=== PATIENT | male | born 1955 | race Caucasian/White ===

== ENCOUNTER 2020-12-11 09:33 | Inpatient (IN) | payer MEDICARE, SELFPAY ==
[2020-12-11] VITALS (16 sets, daily range): BP systolic 128–152; BP diastolic 61–80; PULSE 77–101; RESP 8–25; TEMP 36.4–37.4; O2SAT 94–100; BMI 17.3
--- NOTE | ~2020-12-11 | XR_ITS ---
EXAMINATION: XR CHEST CLINICAL INFORMATION: Shortness of breath. COMPARISON: None TECHNIQUE: Frontal view of the chest was obtained. FINDINGS: The lungs are hyperinflated but clear of acute process. Heart size and pulmonary vascularity is normal. No gross bony abnormality seen. XR/XR chest 1V IMPRESSION: Hyperinflated lungs without acute process.
--- NOTE | ~2020-12-11 | CT_ITS ---
EXAMINATION: CT ANGIOGRAPHY LEGS WITH RUNOFF CLINICAL INFORMATION: Cold left leg COMPARISON: None TECHNIQUE: Axial images through the lower abdomen and pelvis and bilateral lower extremities following IV contrast. Sagittal and coronal reconstructions on the technologist workstation were performed. This CT examination was performed using dose optimization techniques as appropriate, variously including the following: *Automated exposure control *Adjustment of mA and/or kV according to patient size (this includes techniques or standardized protocols for targeted exams where dose is matched to indication/reason for exam; i.e. extremities or head) *Use of iterative reconstruction technique DLP: 323 mGy-cm FINDINGS: Vascular: The abdominal aorta is normal in caliber. There is significant thrombus seen in the abdominal aorta, predominantly on the left side. Is uncertain whether this could related to thrombosed old occluded dissection flap. There is stenosis at the origin of the renal arteries bilaterally. There is a stenosis at the origin of the SMA. There is a patent WILLIAM. Left leg: The left common iliac artery is occluded. The left internal iliac artery is occluded. The left external iliac artery is occluded. There is reconstitution of the left common femoral artery via collaterals. The left profunda is patent. The left proximal and mid SFA is occluded. There is reconstitution of the distal left hepatic vein via collaterals. The left popliteal artery is a patent. There are segmental popliteal artery stenoses. Evaluation of the lower leg is significantly limited due to low flow. Trifurcation vessels appear patent in the proximal lower leg. The anterior tibial artery appears patent crossing the ankle joint is patent dorsalis pedis artery in the left foot. Right: The right common femoral artery is patent. There is a severe stenosis of the origin of the right internal iliac artery. The right external iliac artery is occluded. There is reconstitution of the right femoral bifurcation/distal common femoral artery via collaterals. The right profunda is patent. The right SFA is patent. There are severe segmental stenoses/near occlusion of the mid and distal right SFA. The right popliteal artery is patent. Evaluation of the lower leg vessels is limited due to a little flow. The trifurcation vessels appear patent the proximal lower leg. The posterior tibial artery. Patent throughout the course crossing the ankle joint is a posterior plantar artery in the right foot. Nonvascular: The visualized liver spleen pancreas and adrenal glands and kidneys are unremarkable. The bladder is normal. There are calcifications in the prostate gland. Visualized bowel is unremarkable. No ascites or adenopathy is seen. No hernia is seen. There are degenerative changes of the spine. CT/CT angio abd aorta runoff IMPRESSION: Significant intraluminal thrombus in the abdominal aorta. This is located on the left side and appearance is questionable a thrombosed old dissection. Occluded left common internal and external iliac artery. Reconstituted left common femoral artery via collaterals. Patent profunda. Occluded left proximal and mid SFA. Reconstituted distal SFA via collaterals. Patent popliteal artery with significant segmental stenoses. Evaluation of lower leg vessels is limited due to little flow. Patent trifurcation vessels proximally. Patent anterior tibial artery crossing the ankle joint is patent dorsalis pedis artery in the left foot. Patent right common femoral artery. Severe stenosis of the origin of the right internal iliac artery. Occluded right external iliac artery. Reconstituted distal femoral bifurcation. Patent profunda. Patent SFA with severe stenosis of the mid and distal SFA/near occlusion. The popliteal artery with significant stenosis. Limited evaluation of the lower leg vessels due to little flow. Patent trifurcation vessels proximally. Patent posterior tibial artery crosses the ankle joint is patent plantar artery in the right foot
--- NOTE | 2020-12-11 10:49 | ED_ITS ---
HPI - General Adult General Chief complaint: Dyspnea Stated complaint: Weakness Time Seen by Provider: 12/11/20 10:49 Source: patient Mode of arrival: EMS Limitations: no limitations History of Present Illness HPI narrative: patient complaining of leg swelling for weeks. Now with increasing pain to left leg. He states that both legs are draining Onset (ago): week(s) Location: lower extremity Severity: severe Quality: burning Pain Consistency: constant Related Data Allergies Allergy/AdvReac Type Severity Reaction Status Date / Time No Known Allergies Allergy Verified 12/11/20 10:57 Review of Systems Constitutional: Constitutional: Reports no additional constitutional complaints Eyes: Eyes: Reports no additional eye complaints ENT: Denies dizziness Cardiovascular: Cardiovascular: Reports no additional cardiovascular complaints Respiratory: Respiratory: Reports as per HPI Gastrointestinal: Gastrointestinal: Reports no additional gastrointestinal complaints Musculoskeletal: Musculoskeletal: Reports no additional musculoskeletal complaints Integumentary/Breasts: Skin/Breast: Denies rash Neurologic: Reports system reviewed and no additional complaints, except as documented, Denies dizziness and Denies Sensory deficit (Neuro) Psychiatric: Psychiatric: Denies anxiety [facility] Social History Social History Patient Tobacco Use Status: Current everyday Tobacco user Smoked in Last 30 Days: Yes Use of substances other than those prescribed or required for medical reasons: No Advance Directives: No Advance Directives Information Provided: No Physical Exam Vital Signs: Vital Signs: Last Vital Signs Temp 98.9 F 12/11/20 16:14 Pulse 96 12/11/20 16:14 Resp 16 12/11/20 16:14 BP 131/71 12/11/20 16:14 Pulse Ox 99 12/11/20 15:10 Body Mass Index 17.3 Const: Other: emaciated unkept male Orientation/consciousness: oriented to person and patient oriented x3 Limitations: no limitations HENMT: Head: Yes normal to inspection Ears: external ears normal General nose exam: Normal external nose present Mouth: Normal oral and palatal mucosa present and oropharynx normal Throat: Yes posterior oropharynx normal Eyes: General: appearance normal, both eyes and all related structures Neck: Other: supple Neck: Yes normal visual inspection Chest: Chest palpation & inspection: normal inspection of the chest Resp: Other: diffuse wheezing and cough Cardio: Jugular venous distension: no JVD Rate: regular rate Rhythm: regular rhythm Heart sounds: S1 normal heart sound present and S2 normal heart sound present GI: Inspection: Yes normal to inspection Palpation (GI): Soft to palpation, nontender and No hepatosplenomegaly present Auscultation: normal bowel sounds : General: Yes no CVA tenderness Back/Spine/Pelvis: Back: no CVA tenderness Skin: General skin exam: no rashes or lesions noted Neuro: General: oriented to person and patient oriented x3 Cranial nerves: Yes CN's II-XII intact bilaterally Motor exam (neuro): 5/5 motor strength present throughout Sensory Exam: No Sensory deficit (Neuro) Extrem: Other: severe edema to lower extremities able to doppler a pulse to ri ght leg which is warm, the left leg is cold with patches of cyanosis and no doppler to DP or PT. Both feet look like trench foot Psych: Appearance: grossly normal Course Reevaluation(s) Reevaluation #1: discussed with Dr. Barnett, will not take to the unit at this time. Rectal black stool strong heme positive Time: 12:34 Reevaluation #2: Dr. Pollock at bedside will obtain CTA with run off Time: 13:03 Reevaluation #3: patient with clotted leg, GI bleed anemia, admitting Time: 16:28 Medical Decision Making Lab Data Result diagrams: 12/11/20 11:23 12/11/20 11:23 Labs: Lab Results 12/11/20 12/11/20 12/11/20 Range/Units 11:23 11:23 11:23 WBC 15.1 H (4.8-10.8) X10*3/uL RBC 2.87 L (4.60-5.80) X10*6/uL Hgb 6.0 L* (14.0-18.0) g/dl Hct 21.9 L (42-52) % MCV 76.3 L (80-98) fL MCH 20.9 L (27.0-33.0) pg MCHC 27.4 L (31.0-36.0) g/dl RDW 25.1 H (11.0-16.0) % Plt Count 397 (160-400) X10*3/uL MPV 9.6 (9.4-12.4) fL Immature Gran % (Auto) 0.8 H (0.0-0.4) % Neut % (Auto) 89.1 H (45-73) % Lymph % (Auto) 5.2 L (20-40) % Mccracken % (Auto) 4.8 (2-11) % Eos % (Auto) 0.0 (0-4) % Baso % (Auto) 0.1 (0-2) % Lymph # (Auto) 0.8 L (1.2-4.9) X10*3/uL Mccracken # (Auto) 0.7 (0.1-1.2) X10*3/uL Eos # (Auto) 0.0 (0.0-0.4) X10*3/uL Baso # (Auto) 0.0 (0.0-0.2) X10*3/uL Abs Immat Gran (auto) 0.12 H (0.00-0.03) X10*3/uL Absolute Neuts (auto) 13.4 H (2.0-8.3) X10*3/uL Absolute Nucleated RBC 0.350 H (0.0-0.012) X10*3/uL Nucleated RBC % (auto) 2.3 H (0.0-0.2) /100WBC PT (10.8-13.0) SEC INR (0.9-1.1) APTT (24.1-38.0) SEC Sodium (135-145) mmol/L Potassium (3.3-5.1) mmol/L Chloride (96-108) mmol/L Carbon Dioxide (22-29) mmol/L Anion Gap (12-20) BUN (9-16) mg/dL Creatinine (0.5-1.4) mg/dL Estim Creat Clear Calc Estimated GFR Random Glucose (60-115) mg/dL Calcium (8.4-10.2) mg/dL Total Bilirubin (0.0-1.0) mg/dL Direct Bilirubin (0.0-0.5) mg/dL AST (5-37) U/L ALT (0-40) U/L Alkaline Phosphatase (39-117) U/L Troponin I High Sens 94.1 H* (<3.5-35.0) ng/L Total Protein (6.5-8.0) g/dL Albumin (3.5-5.0) g/dL Coronavirus (PCR) NEGATIVE (Negative) Influenza Type A (PCR) NEGATIVE (Negative) Influenza Type B (PCR) NEGATIVE (Negative) RSV RNA Qual (PCR) NEGATIVE (Negative) Blood Type Antibody Screen Crossmatch 12/11/20 12/11/20 12/11/20 Range/Units 11:23 11:24 12:20 WBC (4.8-10.8) X10*3/uL RBC (4.60-5.80) X10*6/uL Hgb (14.0-18.0) g/dl Hct (42-52) % MCV (80-98) fL MCH (27.0-33.0) pg MCHC (31.0-36.0) g/dl RDW (11.0-16.0) % Plt Count (160-400) X10*3/uL MPV (9.4-12.4) fL Immature Gran % (Auto) (0.0-0.4) % Neut % (Auto) (45-73) % Lymph % (Auto) (20-40) % Mccracken % (Auto) (2-11) % Eos % (Auto) (0-4) % Baso % (Auto) (0-2) % Lymph # (Auto) (1.2-4.9) X10*3/uL Mccracken # (Auto) (0.1-1.2) X10*3/uL Eos # (Auto) (0.0-0.4) X10*3/uL Baso # (Auto) (0.0-0.2) X10*3/uL Abs Immat Gran (auto) (0.00-0.03) X10*3/uL Absolute Neuts (auto) (2.0-8.3) X10*3/uL Absolute Nucleated RBC (0.0-0.012) X10*3/uL Nucleated RBC % (auto) (0.0-0.2) /100WBC PT 25.4 H (10.8-13.0) SEC INR 2.1 H (0.9-1.1) APTT 34.7 (24.1-38.0) SEC Sodium 138 (135-145) mmol/L Potassium 4.4 (3.3-5.1) mmol/L Chloride 100 (96-108) mmol/L Carbon Dioxide 27 (22-29) mmol/L Anion Gap 15 (12-20) BUN 14 (9-16) mg/dL Creatinine 0.82 (0.5-1.4) mg/dL Estim Creat Clear Calc 69.4 Estimated GFR > 60 Random Glucose 100 (60-115) mg/dL Calcium 8.1 L (8.4-10.2) mg/dL Total Bilirubin 0.2 (0.0-1.0) mg/dL Direct Bilirubin < 0.2 (0.0-0.5) mg/dL AST 23 (5-37) U/L ALT 11 (0-40) U/L Alkaline Phosphatase 94 (39-117) U/L Troponin I High Sens (<3.5-35.0) ng/L Total Protein 6.1 L (6.5-8.0) g/dL Albumin 3.2 L (3.5-5.0) g/dL Coronavirus (PCR) (Negative) Influenza Type A (PCR) (Negative) Influenza Type B (PCR) (Negative) RSV RNA Qual (PCR) (Negative) Blood Type O Positive Antibody Screen NEGATIVE Crossmatch See Detail 12/11/20 Range/Units 13:27 WBC (4.8-10.8) X10*3/uL RBC (4.60-5.80) X10*6/uL Hgb (14.0-18.0) g/dl Hct (42-52) % MCV (80-98) fL MCH (27.0-33.0) pg MCHC (31.0-36.0) g/dl RDW (11.0-16.0) % Plt Count (160-400) X10*3/uL MPV (9.4-12.4) fL Immature Gran % (Auto) (0.0-0.4) % Neut % (Auto) (45-73) % Lymph % (Auto) (20-40) % Mccracken % (Auto) (2-11) % Eos % (Auto) (0-4) % Baso % (Auto) (0-2) % Lymph # (Auto) (1.2-4.9) X10*3/uL Mccracken # (Auto) (0.1-1.2) X10*3/uL Eos # (Auto) (0.0-0.4) X10*3/uL Baso # (Auto) (0.0-0.2) X10*3/uL Abs Immat Gran (auto) (0.00-0.03) X10*3/uL Absolute Neuts (auto) (2.0-8.3) X10*3/uL Absolute Nucleated RBC (0.0-0.012) X10*3/uL Nucleated RBC % (auto) (0.0-0.2) /100WBC PT (10.8-13.0) SEC INR (0.9-1.1) APTT (24.1-38.0) SEC Sodium (135-145) mmol/L Potassium (3.3-5.1) mmol/L Chloride (96-108) mmol/L Carbon Dioxide (22-29) mmol/L Anion Gap (12-20) BUN (9-16) mg/dL Creatinine (0.5-1.4) mg/dL Estim Creat Clear Calc Estimated GFR Random Glucose (60-115) mg/dL Calcium (8.4-10.2) mg/dL Total Bilirubin (0.0-1.0) mg/dL Direct Bilirubin (0.0-0.5) mg/dL AST (5-37) U/L ALT (0-40) U/L Alkaline Phosphatase (39-117) U/L Troponin I High Sens 79.0 H* (<3.5-35.0) ng/L Total Protein (6.5-8.0) g/dL Albumin (3.5-5.0) g/dL Coronavirus (PCR) (Negative) Influenza Type A (PCR) (Negative) Influenza Type B (PCR) (Negative) RSV RNA Qual (PCR) (Negative) Blood Type Antibody Screen Crossmatch Imaging Data Chest x-ray: Radiologist's impression: IMPRESSION: Hyperinflated lungs without acute process. aortagram with run off: Radiologist's impression: IMPRESSION: Significant intraluminal thrombus in the abdominal aorta. This is located on the left side and appearance is questionable a thrombosed old dissection. Occluded left common internal and external iliac artery. Reconstituted left common femoral artery via collaterals. Patent profunda. Occluded left proximal and mid SFA. Reconstituted distal SFA via collaterals. Patent popliteal artery with significant segmental stenoses. Evaluation of lower leg vessels is limited due to little flow. Patent trifurcation vessels proximally. Patent anterior tibial artery crossing the ankle joint is patent dorsalis pedis artery in the left foot. Patent right common femoral artery. Severe stenosis of the origin of the right internal iliac artery. Occluded right external iliac artery. Reconstituted distal femoral bifurcation. Patent profunda. Patent SFA with severe stenosis of the mid and distal SFA/near occlusion. The popliteal artery with significant stenosis. Limited evaluation of the lower leg vessels due to little flow. Patent trifurcation vessels proximally. Patent posterior tibial artery crosses the ankle joint is patent plantar artery in the right f Critical Care Time Critical Care Time Attestation: I spent 40 minutes of critical care, with interventions, assessments, speaking to patient, consultants, and family. Discharge Plan Discharge Clinical Impression: Ischemic leg Gastrointestinal hemorrhage Qualifiers: GI bleed type/associated pathology: unspecified gastrointestinal hemorrhage type Qualified Code(s): K92.2 - Gastrointestinal hemorrhage, unspecified Patient Disposition: Admitted As Inpatient
--- NOTE | 2020-12-11 11:02 | ECG_ITS ---
Test Reason : SHORTNESS OF BREATH Blood Pressure : / mmHG Vent. Rate : 101 BPM Atrial Rate : 101 BPM P-R Int : 130 ms QRS Dur : 118 ms QT Int : 352 ms P-R-T Axes : 086 -53 065 degrees QTc Int : 456 ms Sinus tachycardia Right atrial enlargement Right axis deviation Pulmonary disease pattern Right bundle branch block Abnormal ECG No previous ECGs available Referred By: James Romero Electronically Signed By:Arjun Dickinson
[2020-12-11] MEDS: Albuterol Sulfate 90 MCG 8 GM INHALER 4 PUFF INHALE (11:24)
[2020-12-11 11:34] LABS: MANUAL DIFF FLAG NO
[2020-12-11 11:36] LABS: Basophils Percent Auto 0.1 % (0-2); Hematocrit 21.9 % (42-52); Imm Gran Abs Auto 0.12 X10*3/uL (0.00-0.03); Imm Gran Pct Auto 0.8 % (0.0-0.4); Lymphocytes Absolute Auto 0.8 X10*3/uL (1.2-4.9); Lymphocytes Percent Auto 5.2 % (20-40); Mean Corpuscular HGB Conc 27.4 g/dl (31.0-36.0); Mean Corpuscular Hemoglobin 20.9 pg (27.0-33.0); Mean Corpuscular Volume 76.3 fL (80-98); Mean Platelet Volume 9.6 fL (9.4-12.4); Monocytes Absolute Auto 0.7 X10*3/uL (0.1-1.2); Monocytes Percent Auto 4.8 % (2-11); Neutrophils Absolute Auto 13.4 X10*3/uL (2.0-8.3); Neutrophils Percent Auto 89.1 % (45-73); Platelet Count 397 X10*3/uL (160-400); Red Blood Count 2.87 X10*6/uL (4.60-5.80); Red Cell Distribution Width 25.1 % (11.0-16.0); White Blood Count 15.1 X10*3/uL (4.8-10.8)
[2020-12-11 11:45] LABS: NRBC Pct Auto 2.3 /100WBC (0.0-0.2)
[2020-12-11 11:48] LABS: INTERNATIONAL NORM RATIO 2.1 (0.9-1.1); Prothrombin Time 25.4 SEC (10.8-13.0)
[2020-12-11 11:51] LABS: Partial Thromboplastin Time 34.7 SEC (24.1-38.0)
[2020-12-11 12:04] LABS: Troponin-I High Sensitivity 94.1 ng/L (<3.5-35.0)
[2020-12-11 12:14] LABS: Alanine Aminotransferase 11 U/L (0-40); Albumin Level 3.2 g/dL (3.5-5.0); Alkaline Phosphatase 94 U/L (39-117); Anion Gap 15 (12-20); Aspartate Amino Transferase 23 U/L (5-37); Bilirubin Direct < 0.2 mg/dL (0.0-0.5); Bilirubin Total 0.2 mg/dL (0.0-1.0); Blood Urea Nitrogen 14 mg/dL (9-16); Calcium 8.1 mg/dL (8.4-10.2); Carbon Dioxide 27 mmol/L (22-29); Chloride 100 mmol/L (96-108); Creatinine Clr Calc Pharmacy 69.4; Estimated Glomerular Filt Rate > 60; Glucose Random 100 mg/dL (60-115); Potassium 4.4 mmol/L (3.3-5.1); Sodium 138 mmol/L (135-145); Total Protein 6.1 g/dL (6.5-8.0)
[2020-12-11] MEDS: Pantoprazole Sodium 40 MG/10 ML VIAL IVPUSH (12:34)
[2020-12-11 12:38] LABS: Influenza A PCR NEGATIVE (Negative); Influenza B PCR NEGATIVE (Negative); Resp Syncy Virus RNA Qual PCR NEGATIVE (Negative); SARS COV2 PCR INHOUSE NEGATIVE (Negative)
[2020-12-11] MEDS: iohexoL 350 MG/ML 100 ML INFUS..BTL IV (14:00)
--- NOTE | 2020-12-11 14:04 | PC.NURSE ---
PT TOLERATING BLOOD TRANSFUSION WELL. REPORTS IMPROVEMENT WITH WORK OF BREATHING, WHEEZING RESOLVES, LS DIMINISHED THROUGHOUT. SPO2 DOWN TO 88% ON RA, PLACED ON 1L O2. PT MILDLY OBTUNDED, ROUSES EASILY TO VERBAL STIMULI, ORIENTED X 3. SPEAKING IN CLEAR FULL SENTENCES.
--- NOTE | 2020-12-11 16:34 | PM.EVENT ---
Event Note Date of Service: 12/11/20 Event Note: Patient seen and examined independently and was present during gusman portion of E/M service. Agree with midlevel's history, physical, assessment, and plan. 65M presented with LLE pain and swelling found to have anemia, black stools acute limb ischemia follow up vascular acute blood loss anemia/gi bleed, likely upper ppi, tranfuse, monitor, gi
[2020-12-11 17:27] LABS: Estimated Average Glucose 85 mg/dL; Hemoglobin A1c % 4.6 %
--- NOTE | 2020-12-11 18:01 | PC.NURSE ---
CALLED UP FOR REPORT, AWAITING CALL BACK
[2020-12-11 18:09] LABS: VBG Base Excess 1.2 mmol/L; VBG HCO3 25 mmol/L (22-26); VBG pCO2 36 mmHg; VBG pH 7.44 (7.32-7.43); VBG pO2 63 mmHg
[2020-12-11 18:09] LABS: Venous Blood Gas Refer to POC result
--- NOTE | 2020-12-11 19:33 | P.CONGS_ITS ---
History of Present Illness Consult details Consult date: 12/11/20 Reason for consult: ischemic leg Narrative: Complex 65-year-old gentleman was as this seeing consultation by the emergency room for any ski make left lower extremity. It was difficult to ascertain a true history as the patient was quite confusing. He reports that his legs have progressively gotten swollen over the last year to but he has had difficulty with his legs for about 7 years or so. Over the past 3-4 days his left leg has progressively gotten worse and he is unable to tolerate the pain. He states that he has not been walking for about 2-3 days. According to the mother it has been about 2-3 weeks. Of note social history is significant for smoking at the current time half pack per day but I believe at 1 point he was as high as 2 packs per day in addition to a significant alcohol history. He now presents to us for vascular evaluation. Of note I was called to evaluate this patient at 11:15. I was in the midst of a procedure and had seen the patient by noon. At that time the left lower extremity already had a mottled appearance to it and the patient reported that this is been the appearance for nearly 2-3 days. Review of Systems Constitutional: Constitutional: Reports as per HPI ENT: Reports system reviewed and no additional complaints, except as documented Cardiovascular: Cardiovascular: Denies chest pain, Denies chest pain at rest and Denies chest pain with activity Respiratory: Respiratory: Denies chest congestion and Denies cough Gastrointestinal: Gastrointestinal: Reports no additional gastrointestinal complaints Musculoskeletal: Musculoskeletal: Reports abnormal gait, Reports muscle cramps, Reports muscle weakness and Reports numbness Integumentary/Breasts: Skin/Breast: Reports pruritus and Denies wounds Neurologic: Reports system reviewed and no additional complaints, except as documented, Reports abnormal gait and Reports numbness Psychiatric: Psychiatric: Denies no additional psychiatric complaints PMFSH Social History Social History Patient Tobacco Use Status: Current everyday Tobacco user Smoked in Last 30 Days: Yes Use of substances other than those prescribed or required for medical reasons: No Advance Directives: No Advance Directives Information Provided: No Meds Allergies Allergy/AdvReac Type Severity Reaction Status Date / Time No Known Allergies Allergy Verified 12/11/20 10:57 Active Medications: Current Medications Generic Name Dose Route Start Last Admin Trade Name Katherine PRN Reason Stop Dose Admin Acetaminophen 650 mg 12/11/20 16:46 Acetaminophen 325 Mg Tablet PO Q6H PRN Pain, Mild (Pain Scale 1-3) Albuterol Sulfate 2.5 mg 12/11/20 20:00 Albuterol Sulfate (0.083%) 2.5 Mg/3 Ml Vial.Neb INHALE RQ4H WHILE AWAKE [facility] Ondansetron HCl 4 mg 12/11/20 16:46 Ondansetron Hcl 4 Mg/2 Ml Vial IVPUSH Q8H PRN Nausea and Vomiting Oxycodone HCl 5 mg 12/11/20 16:51 Oxycodone Hcl Immed Release 5 Mg Tablet PO Q6H PRN Pain, Mild (Pain Scale 1-3) Pantoprazole Sodium 40 mg 12/12/20 06:30 Pantoprazole Sodium 40 Mg/10 Ml Vial IVPUSH BID@0630,1630 [facility] Sodium Chloride 3 ml 12/12/20 00:00 0.9 % Sodium Chloride Flush 3 Ml Syringe IVFLUSH QSHIFT [facility] Home Medications Medication Instructions Recorded Confirmed Last Taken Type No Known Home Meds 12/11/20 12/11/20 Unknown History Physical Exam Vital Signs: Vital Signs: Last Vital Signs Temp 99.3 F 12/11/20 18:01 Pulse 85 12/11/20 18:01 Resp 16 12/11/20 18:01 BP 152/74 H 12/11/20 18:01 Pulse Ox 99 12/11/20 18:00 Body Mass Index 17.3 Const: General: cooperative, healthy appearing and comfortable Orientation/consciousness: oriented to person, oriented to place and oriented to time Neck: Carotids: no bruits Chest: Chest palpation & inspection: normal inspection of the chest and normal palpation of entire chest wall Resp: Effort & Inspection: normal respiratory effort and able to speak in complete sentences Cardio: Rate: regular rate Heart sounds: S1 normal heart sound present and S2 normal heart sound present Peripheral pulses: dorsalis pedis present bilat eral dopplerable GI: Inspection: Yes normal to inspection Skin: Other: +2 edema, Right greater than left. Left lower extremity appears to have a cool mottled appearance to it. There is diminshed motor and sensation on that left lower extremity. General skin exam: dry skin Neuro: General: oriented to person, oriented to place and oriented to time Extrem: Right lower extremity: full ROM, normal capillary refill and edema Left lower extremity: full ROM, normal capillary refill and edema Psych: Mental Status: mental status grossly normal Results Labs Result diagrams: 12/11/20 11:23 12/11/20 11:23 Labs: Abnormal lab results 12/11/20 12/11/20 12/11/20 Range/Units 11:23 11:23 11:23 WBC 15.1 H (4.8-10.8) X10*3/uL RBC 2.87 L (4.60-5.80) X10*6/uL Hgb 6.0 L* (14.0-18.0) g/dl Hct 21.9 L (42-52) % MCV 76.3 L (80-98) fL MCH 20.9 L (27.0-33.0) pg MCHC 27.4 L (31.0-36.0) g/dl RDW 25.1 H (11.0-16.0) % Immature Gran % (Auto) 0.8 H (0.0-0.4) % Neut % (Auto) 89.1 H (45-73) % Lymph % (Auto) 5.2 L (20-40) % Lymph # (Auto) 0.8 L (1.2-4.9) X10*3/uL Abs Immat Gran (auto) 0.12 H (0.00-0.03) X10*3/uL Absolute Neuts (auto) 13.4 H (2.0-8.3) X10*3/uL Absolute Nucleated RBC 0.350 H (0.0-0.012) X10*3/uL Nucleated RBC % (auto) 2.3 H (0.0-0.2) /100WBC PT (10.8-13.0) SEC INR (0.9-1.1) VBG pH (7.32-7.43) Calcium 8.1 L (8.4-10.2) mg/dL Troponin I High Sens 94.1 H* (<3.5-35.0) ng/L Total Protein 6.1 L (6.5-8.0) g/dL Albumin 3.2 L (3.5-5.0) g/dL Crossmatch 12/11/20 12/11/20 12/11/20 Range/Units 11:24 12:20 13:27 WBC (4.8-10.8) X10*3/uL RBC (4.60-5.80) X10*6/uL Hgb (14.0-18.0) g/dl Hct (42-52) % MCV (80-98) fL MCH (27.0-33.0) pg MCHC (31.0-36.0) g/dl RDW (11.0-16.0) % Immature Gran % (Auto) (0.0-0.4) % Neut % (Auto) (45-73) % Lymph % (Auto) (20-40) % Lymph # (Auto) (1.2-4.9) X10*3/uL Abs Immat Gran (auto) (0.00-0.03) X10*3/uL Absolute Neuts (auto) (2.0-8.3) X10*3/uL Absolute Nucleated RBC (0.0-0.012) X10*3/uL Nucleated RBC % (auto) (0.0-0.2) /100WBC PT 25.4 H (10.8-13.0) SEC INR 2.1 H (0.9-1.1) VBG pH (7.32-7.43) Calcium (8.4-10.2) mg/dL Troponin I High Sens 79.0 H* (<3.5-35.0) ng/L Total Protein (6.5-8.0) g/dL Albumin (3.5-5.0) g/dL Crossmatch See Detail 12/11/20 Range/Units 18:02 WBC (4.8-10.8) X10*3/uL RBC (4.60-5.80) X10*6/uL Hgb (14.0-18.0) g/dl Hct (42-52) % MCV (80-98) fL MCH (27.0-33.0) pg MCHC (31.0-36.0) g/dl RDW (11.0-16.0) % Immature Gran % (Auto) (0.0-0.4) % Neut % (Auto) (45-73) % Lymph % (Auto) (20-40) % Lymph # (Auto) (1.2-4.9) X10*3/uL Abs Immat Gran (auto) (0.00-0.03) X10*3/uL Absolute Neuts (auto) (2.0-8.3) X10*3/uL Absolute Nucleated RBC (0.0-0.012) X10*3/uL Nucleated RBC % (auto) (0.0-0.2) /100WBC PT (10.8-13.0) SEC INR (0.9-1.1) VBG pH 7.44 H (7.32-7.43) Calcium (8.4-10.2) mg/dL Troponin I High Sens (<3.5-35.0) ng/L Total Protein (6.5-8.0) g/dL Albumin (3.5-5.0) g/dL Crossmatch Short CBC 12/11/20 Range/Units 11:23 WBC 15.1 H (4.8-10.8) X10*3/uL Hgb 6.0 L* (14.0-18.0) g/dl Hct 21.9 L (42-52) % Plt Count 397 (160-400) X10*3/uL BMP 12/11/20 11:23 Sodium 138 Potassium 4.4 Chloride 100 Carbon Dioxide 27 BUN 14 Creatinine 0.82 Calcium 8.1 L Liver Function 12/11/20 Range/Units 11:23 Total Bilirubin 0.2 (0.0-1.0) mg/dL Direct Bilirubin < 0.2 (0.0-0.5) mg/dL AST 23 (5-37) U/L ALT 11 (0-40) U/L Alkaline Phosphatase 94 (39-117) U/L Albumin 3.2 L (3.5-5.0) g/dL All other labs normal. Imaging Additional studies: Significant intraluminal thrombus in the abdominal aorta. This is located on the left side and appearance is questionable a thrombosed old dissection. Occluded left common internal and external iliac artery. Reconstituted left common femoral artery via collaterals. Patent profunda. Occluded left proximal and mid SFA. Reconstituted distal SFA via collaterals. Patent popliteal artery with significant segmental stenoses. Evaluation of lower leg vessels is limited due to little flow. Patent trifurcation vessels proximally. Patent anterior tibial artery crossing the ankle joint is patent dorsalis pedis artery in the left foot. Patent right common femoral artery. Severe stenosis of the origin of the right internal iliac artery. Occluded right external iliac artery. Reconstituted distal femoral bifurcation. Patent profunda. Patent SFA with severe stenosis of the mid and distal SFA/near occlusion. The popliteal artery with significant stenosis. Limited evaluation of the lower leg vessels due to little flow. Patent trifurcation vessels proximally. Patent posterior tibial artery crosses the ankle joint is patent plantar artery in the right foot Assessment and Plan (1) PVD (peripheral vascular disease): Status: Acute In short patient has an ischemic left lower extremity it appears that this is an acute upon chronic event. Of bigger concern is his low hemoglobin. This will need to be worked up and stabilized prior to any intervention as he will require large amounts of heparin for any vascular procedure. Would like him stabilized 1st from an anemia standpoint. Subsequent to that we can de termine the best plan of action. There is a very high probability that there will be limb loss of the left lower extremity. Would recommend GI evaluation in addition to cardiology evaluation for high troponins and evaluation of his overall cardiac status. He might be better served with an ICU admission. Will monitor his status closely with you. Thank you for allowing us to assist in his care. Please note a total of 70 minutes was required for direct [id number] evaluation of the patient, review of imaging report and direct visualization of images. In addition discussion with the emergency room team. Procedures Date of Service Date of Service: 12/11/20
--- NOTE | 2020-12-11 20:02 | HP_ITS ---
DATE OF SERVICE: 12/11/2020 PRIMARY CARE PROVIDER: None. CHIEF COMPLAINT: Left leg pain. HISTORY OF PRESENT ILLNESS: 65-year-old man with no significant medical history, presenting to the ER with bilateral leg swelling and pain mostly to his left leg. The patient lives with his elderly mother and apparently last year when he contracted the COVID around August, he seemed to develop a depression and had not been wanting to leave the house and has been housebound most of the year except for occasional outings with his mother to [place] to get cigarettes. He reports that he has not seen a doctor in more than 5 years and does not take any medication at home. He does smoke a half a pack to a pack of cigarettes a day. He denies any alcohol use. He denies any assistive devices for ambulation. He had noticed increased swelling to both legs, more to the right and the left leg had increased pain and discoloration, both feet felt very cold. He also reported black stools over the last several days with no nausea or vomiting. In the ER, he had a CT angio of the abdomen/aorta, which showed multiple areas of occlusion and stenosis to the left lower extremity. He was also noted to be anemic with hemoglobin of 6.0, hematocrit of 21.9, normal platelet count, INR 2.1. He also had an elevated troponin initially of 94.1, however, he denied any chest pain, and there was no acute ST-wave abnormalities on EKG. His vital signs were stable, although one point, he was mildly tachycardic at 101. He did receive IV Protonix and albuterol while in the ER. He will be admitted for further management and treatment of ischemic limb. PAST MEDICAL HISTORY: Reports none. PAST SURGICAL HISTORY: Reports none. SOCIAL HISTORY: Smokes a half a pack to a pack of cigarettes a day. Lives with his mother. Denies any alcohol or illicit drug use. FAMILY HISTORY: Denies any cardiac disease. ALLERGIES: NO KNOWN ALLERGIES. MEDICATIONS: None. LABORATORY DATA: WBC 15.1, hemoglobin 6.0, hematocrit 21.9, platelets 397. Sodium is 138, potassium is 4.4, chloride is 100, bicarb is 27, BUN is 14, creatinine is 0.82. AST is 23, ALT is 11. Troponin 94.1, 79.0. INR 2.1. Coronavirus negative. Chest x-ray negative for consolidation or effusion. REVIEW OF SYSTEMS: CONSTITUTIONAL: Denies any recent fever, chills, or decrease in appetite. RESPIRATORY: Denies any shortness of breath, cough, or sputum production. CARDIOVASCULAR: Denies any chest pain, orthopnea, PND. Reports edema to both legs. ABDOMEN: Positive bowel sounds. Soft, nontender. No hepatomegaly or splenomegaly noted. NEURO: The patient is alert and oriented x3. Cranial nerves II through XII are grossly intact without focal deficits. PHYSICAL EXAMINATION: CONSTITUTIONAL: The patient is resting in bed, appearing in no acute distress. VITAL SIGNS: 98.5, 88, 20, 147/78, 99% on 2 L. SKIN: Intact with some redness and bluish discoloration to his left lower extremity. Some skin tearing as well. Right lower extremity with +2 to 3 pedal edema. He also has multiple areas of scabbing to his back and shoulders. ABDOMEN: Positive bowel sounds. Soft, nontender. No hepatomegaly or splenomegaly noted. NEURO: The patient is alert and oriented x3. Cranial nerves II through XII are grossly intact without focal deficits. ASSESSMENT AND PLAN: 65-year-old man, who is being admitted with what appears to be ischemic left limb with multiple areas of occlusion and stenosis to the left lower extremity. 1. Ischemic limb. History of cigarette smoking. Denies alcohol abuse. Has not seen a primary care doctor in over 5 years. Appears to have some degree of depression. We will consult Vascular Surgery. We will likely need amputation to left lower extremity. Pain medication as needed. No pedal pulse to left lower extremity. Decent pulse to right lower extremity. N.p.o. after midnight. 2. Anemia. Likely GI bleed with black stools. Denies any history of heavy alcohol abuse, GI consultation, receiving 2 units of packed red blood cells in the ER. We will recheck H and H at 9 p.m., IV Protonix. 3. Supratherapeutic INR. No history of liver disease. We will avoid correction as the patient has severe occlusion to his left lower extremity. Recheck PT/INR in the morning. Monitor for any signs of overt bleeding. 4. Leukocytosis. No infection noted, likely reactive to ischemia. Follow closely. 5. Elevated troponin. No complaints of chest pain, no acute abnormalities to EKG. We will trend and monitor on telemetry. 6. Elevated blood pressure reading. The patient states no history of hypertension, however, he does have a history of smoking, so likely chronic, monitor. 7. Deep vein thrombosis prophylaxis with right lower extremity mechanical compression boot due to anemia. 8. Attending: Dr. Braden. 9. Full code. ASAEL Mcgrath MD JR/KAYODE / [id number]
[2020-12-11] MEDS: 0.9 % Sodium Chloride Flush 3 ML SYRINGE IVFLUSH (20:06)
[2020-12-11] MEDS: Albuterol Sulfate (0.083%) 2.5 MG/3 ML VIAL.NEB INHALE (20:11)
[2020-12-11 20:59] LABS: Hematocrit 30.3 % (42-52); Hemoglobin 9.3 g/dl (14.0-18.0)
[2020-12-11 21:44] LABS: Troponin-I High Sensitivity 98.9 ng/L (<3.5-35.0)
[2020-12-12] VITALS (20 sets, daily range): BP systolic 101–135; BP diastolic 46–74; PULSE 68–89; RESP 16–20; TEMP 36.6–37.7; O2SAT 93–100; BMI 17.3
--- NOTE | 2020-12-12 | ECG_ITS ---
Test Reason : [facility] Blood Pressure : / mmHG Vent. Rate : 089 BPM Atrial Rate : 089 BPM P-R Int : 144 ms QRS Dur : 122 ms QT Int : 374 ms P-R-T Axes : 000 -28 145 degrees QTc Int : 455 ms Normal sinus rhythm Right bundle branch block T wave abnormality, consider lateral ischemia Abnormal ECG When compared with ECG of 11-DEC-2020 12:30, T wave inversion now evident in Lateral leads Referred By: Kaleb Herring Electronically Signed By:Arjun Dickinson
--- NOTE | 2020-12-12 04:41 | P.CNGI_ITS ---
History of Present Illness Data of Consult Service Date: 12/12/20 Requesting physician: Toshia Cruz Primary Care Provider: None Physician HPI Reason for consult: melena, anemia 65-year-old man with smoking history who I am asked to see for assessment for melena and anemia. He initially presented with increased b/l leg swelling, especially right leg with pain and coldness and discoloration. He also c/o passing black tar like stools for few days prior to admission. He denies abdominal pain, no nausea, vomiting, no chest pain, but did feel tired and SOB. Labs:hemoglobin: 6.0, hematocrit:21.9, normal platelet count, INR 2.1. elevated troponin: 94.1 Imaging: multiple areas of occlusion and stenosis to the left lower extremity, intraluminal thrombus in the abdominal aorta. Occluded left common internal and external iliac artery. Review of Systems Constitutional: Constitutional: Reports as per HPI and Reports no additional constitutional complaints Eyes: Eyes: Reports no additional eye complaints ENT: Reports system reviewed and no additional complaints, except as documented and Denies dizziness Cardiovascular: Cardiovascular: Reports no additional cardiovascular complaints, Denies chest pain, Denies chest pain at rest and Denies chest pain with activity Respiratory: Respiratory: Reports as per HPI, Denies chest congestion and Denies cough Gastrointestinal: Gastrointestinal: Reports no additional gastrointestinal complaints Musculoskeletal: Musculoskeletal: Reports no additional musculoskeletal complaints, Reports abnormal gait, Reports muscle cramps, Reports muscle weakness and Reports numbness Integumentary/Breasts: Skin/Breast: Reports pruritus, Denies rash and Denies wounds Neurologic: Reports system reviewed and no additional complaints, except as documented, Reports abnormal gait, Denies dizziness, Reports numbness and Denies Sensory deficit (Neuro) Psychiatric: Psychiatric: Denies no additional psychiatric complaints and Denies anxiety [facility] Social History Social History Household Members: Family Household Members Other:: Mom and dad Housing: House Patient Tobacco Use Status: Current everyday Tobacco user Smoked in Last 30 Days: Yes Use of substances other than those prescribed or required for medical reasons: No Currently Displaying Signs/Symptoms of Drug Intoxication Withdrawal: No Have you been hit, kicked, punched, or otherwise hurt by someone within the past year? If so, by whom?: No Do you feel safe in your current relationship?: No Current Relationship Is there a partner from a previous relationship who is making you feel unsafe now?: No Are you made to feel afraid or neglected: No Are you DNR?: No Advance Directives: No Advance Directives Information Provided: No Advance Directives on File: No Do you have thoughts of harming others: None Do you have a plan to hurt others: No Plan Recently lost weight without trying: No Nutrition Risks: No Nutritional Risk service: No Meds Allergies Allergy/AdvReac Type Severity Reaction Status Date / Time No Known Allergies Allergy Verified 12/11/20 10:57 Active Medications: Current Medications Generic Name Dose Route Start Last Admin Trade Name Freq PRN Reason Stop Dose Admin Acetaminophen 650 mg 12/11/20 16:46 Acetaminophen 325 Mg Tablet PO Q6H PRN Pain, Mild (Pain Scale 1-3) Albuterol Sulfate 2.5 mg 12/11/20 20:00 12/11/20 20:11 Albuterol Sulfate (0.083%) 2.5 Mg/3 Ml Vial.Neb INHALE 2.5 mg RQ4H WHILE AWAKE GERTRUDIS Administration Ondansetron HCl 4 mg 12/11/20 16:46 Ondansetron Hcl 4 Mg/2 Ml Vial IVPUSH Q8H PRN Nausea and Vomiting Oxycodone HCl 5 mg 12/11/20 16:51 Oxycodone Hcl Immed Release 5 Mg Tablet PO Q6H PRN Pain, Mild (Pain Scale 1-3) Pantoprazole Sodium 40 mg 12/12/20 06:30 Pantoprazole Sodium 40 Mg/10 Ml Vial IVPUSH BID@0630,1630 GERTRUDIS Sodium Chloride 3 ml 12/12/20 00:00 12/11/20 20:06 0.9 % Sodium Chloride Flush 3 Ml Syringe IVFLUSH 3 ml QSHIFT GERTRUDIS Administration Home Medications Medication Instructions Recorded Confirmed Last Taken Type No Known Home Meds 12/11/20 12/11/20 Unknown History Physical Exam Vital Signs: Vital Signs: Last Vital Signs Temp 98.4 F 12/12/20 04:00 Pulse 81 12/12/20 04:00 Resp 16 12/12/20 04:00 BP 132/68 12/12/20 04:00 Pulse Ox 99 12/12/20 04:00 Body Mass Index 17.3 Const: Other: emaciated unkept male General: cooperative, healthy appearing and comfortable Orientation/consciousness: oriented to person, oriented to place, oriented to time and patient oriented x3 Limitations: no limitations HENMT: Head: Yes normal to inspection Ears: external ears normal General nose exam: Normal external nose present Mouth: Normal oral and palatal mucosa present and oropharynx normal Throat: Yes posterior oropharynx normal Eyes: General: appearance normal, both eyes and all related structures Neck: Other: supple Neck: Yes normal visual inspection Carotids: no bruits Chest: Chest palpation & inspection: normal inspection of the chest and normal palpation of entire chest wall Resp: Other: harsh breath sounds Effort & Inspection: normal respiratory effort and able to speak in complete sentences Cardio: Jugular venous distension: no JVD Rate: regular rate Rhythm: regular rhythm Heart sounds: S1 normal heart sound present and S2 normal heart sound present Peripheral pulses: dorsalis pedis present bilateral dopplerable GI: Inspection: Yes normal to inspection Palpation (GI): Soft to palpation, nontender and No hepatosplenomegaly present Auscultation: normal bowel sounds : General: Yes no CVA tenderness Back/Spine/Pelvis: Back: no CVA tenderness Skin: Other: +2 edema, Right greater than left. Left lower extremity appears to have a cool mottled appearance to it. General skin exam: no rashes or lesions noted and dry skin Neuro: General: oriented to person, oriented to place, oriented to time and patient oriented x3 Cranial nerves: Yes CN's II-XII intact bilaterally Motor exam (neuro): 5/5 motor strength present throughout Sensory Exam: No Sensory deficit (Neuro) Extrem: Other: edema to lower extremities, the left leg is cold with patches of cyanosis Right lower extremity: full ROM, normal capillary refill and edema Left lower extremity: full ROM, normal capillary refill and edema Psych: Appearance: grossly normal Mental Status: mental status grossly normal Results Labs CBC & Chem 7: 12/12/20 05:30 12/12/20 05:30 Labs: Short CBC 12/11/20 12/11/20 Range/Units 11:23 20:52 WBC 15.1 H (4.8-10.8) X10*3/uL Hgb 6.0 L* 9.3 L D (14.0-18.0) g/dl Hct 21.9 L 30.3 L D (42-52) % Plt Count 397 (160-400) X10*3/uL BMP 12/11/20 11:23 Sodium 138 Potassium 4.4 Chloride 100 Carbon Dioxide 27 BUN 14 Creatinine 0.82 Calcium 8.1 L Liver Function 12/11/20 Range/Units 11:23 Total Bilirubin 0.2 (0.0-1.0) mg/dL Direct Bilirubin < 0.2 (0.0-0.5) mg/dL AST 23 (5-37) U/L ALT 11 (0-40) U/L Alkaline Phosphatase 94 (39-117) U/L Albumin 3.2 L (3.5-5.0) g/dL ECG: P Pulmonale, RBBB, right axis deviation. Diminished QRS complexes Assessment and Plan (1) Gastrointestinal hemorrhage: Qualifiers: GI bleed type/associated pathology: unspecified gastrointestinal hemorrhage type Qualified Code(s): K92.2 - Gastrointestinal hemorrhage, unspecified Status: Acute 1/ Anemia with evidence of overt bleeding, may have PUD, also has ischemic limb, did have covid earlier this year which is prothrombotic state and not been that active, as well as smoking history. He needs EGD for assessment prior to surgery and anti coagulation. He has no signs of cirrhosis. PLAN: 1/ EGD 2/ COnt with PPI 3/ fluid and PRBC resus for HGB goal 9 g/dl. Procedures Date of Service Date of Service: 12/12/20
[2020-12-12 05:56] LABS: MANUAL DIFF FLAG NO
[2020-12-12 06:00] LABS: Basophils Percent Auto 0.1 % (0-2); Hematocrit 30.3 % (42-52); Hemoglobin 8.9 g/dl (14.0-18.0); Imm Gran Abs Auto 0.24 X10*3/uL (0.00-0.03); Imm Gran Pct Auto 1.2 % (0.0-0.4); Lymphocytes Absolute Auto 0.8 X10*3/uL (1.2-4.9); Lymphocytes Percent Auto 4.1 % (20-40); Mean Corpuscular HGB Conc 29.4 g/dl (31.0-36.0); Mean Corpuscular Hemoglobin 24.2 pg (27.0-33.0); Mean Corpuscular Volume 82.3 fL (80-98); Mean Platelet Volume 10.4 fL (9.4-12.4); Monocytes Absolute Auto 1.2 X10*3/uL (0.1-1.2); Monocytes Percent Auto 5.6 % (2-11); Neutrophils Absolute Auto 18.4 X10*3/uL (2.0-8.3); Platelet Count 302 X10*3/uL (160-400); Red Blood Count 3.68 X10*6/uL (4.60-5.80); Red Cell Distribution Width 22.5 % (11.0-16.0); White Blood Count 20.7 X10*3/uL (4.8-10.8)
[2020-12-12 06:09] LABS: INTERNATIONAL NORM RATIO 2.2 (0.9-1.1)
[2020-12-12] MEDS: Pantoprazole Sodium 40 MG/10 ML VIAL IVPUSH (06:23)
[2020-12-12 06:37] LABS: Anion Gap 16 (12-20); Blood Urea Nitrogen 11 mg/dL (9-16); Calcium 7.7 mg/dL (8.4-10.2); Carbon Dioxide 25 mmol/L (22-29); Chloride 102 mmol/L (96-108); Creatinine Clr Calc Pharmacy 76.9; Estimated Glomerular Filt Rate > 60; Glucose Random 71 mg/dL (60-115); Potassium 3.9 mmol/L (3.3-5.1); Sodium 139 mmol/L (135-145)
[2020-12-12 06:40] LABS: Iron 21 mcg/dL (45-160); NRBC Pct Auto 1.9 /100WBC (0.0-0.2); Percent Iron Saturation 11 % (15-50); Total Iron Binding Capacity 196 mcg/dL (228-428); Unsaturated Iron Binding 175 ug/dL
[2020-12-12] MEDS: Albuterol Sulfate (0.083%) 2.5 MG/3 ML VIAL.NEB INHALE ×3 (07:29→20:29)
[2020-12-12] MEDS: 0.9 % Sodium Chloride Flush 3 ML SYRINGE IVFLUSH ×2 (08:16→23:27)
--- NOTE | 2020-12-12 09:52 | MHC.CM.PN ---
met with pt who currently has a sitter pt reports that he had no servceis prior to admisison and that he lives with his parents,his dc plan is uncertain at this time ?amputation when he is stable.cm will continue to follow for disposition planning
--- NOTE | 2020-12-12 10:55 | PM.CNCAR ---
History of Present Illness History of Present Illness Date of Service: 12/12/20 Requesting physician: Venancio Giraldo Chief complaint: Leg Pain Narrative: 65-year-old with h/o tobacco abuse presenting with leg pain. He has ischemic left leg and multilevel stenosis including aortic thrombus on CT. He unfortunately also has been experiencing melena and was anemic on admission. He is denying chest pain. He has [place] but has been limited due to legs. He was smoking 5 cig/day recently. We have been asked about perioperative risk cardiovascular risk assessment. He is not physically active due to ongoing PVD issues. CT aorta with leg run off reviewed. ECG reviewed. [facility] Social History Social History Household Members: Family Household Members Other:: Mom and dad Housing: House Patient Tobacco Use Status: Current everyday Tobacco user Smoked in Last 30 Days: Yes Use of substances other than those prescribed or required for medical reasons: No Currently Displaying Signs/Symptoms of Drug Intoxication Withdrawal: No Have you been hit, kicked, punched, or otherwise hurt by someone within the past year? If so, by whom?: No Do you feel safe in your current relationship?: No Current Relationship Is there a partner from a previous relationship who is making you feel unsafe now?: No Are you made to feel afraid or neglected: No Advance Directives: No Advance Directives Information Provided: No Do you have thoughts of harming others: None Do you have a plan to hurt others: No Plan Recently lost weight without trying: No Nutrition Risks: No Nutritional Risk service: No Meds Allergies Allergy/AdvReac Type Severity Reaction Status Date / Time No Known Allergies Allergy Verified 12/11/20 10:57 Active Medications: Current Medications Generic Name Dose Route Start Last Admin Trade Name Freq PRN Reason Stop Dose Admin Acetaminophen 650 mg 12/11/20 16:46 Acetaminophen 325 Mg Tablet PO Q6H PRN Pain, Mild (Pain Scale 1-3) Albuterol Sulfate 2.5 mg 12/11/20 20:00 12/12/20 07:29 Albuterol Sulfate (0.083%) 2.5 Mg/3 Ml Vial.Neb INHALE 2.5 mg RQ4H WHILE AWAKE GERTRUDIS Administration Nicotine 21 mg 12/12/20 09:00 12/12/20 09:36 Nicotine 21 Mg Patch.Td24 TRANSDERMA Not Given DAILY GERTRUDIS Ondansetron HCl 4 mg 12/11/20 16:46 Ondansetron Hcl 4 Mg/2 Ml Vial IVPUSH Q8H PRN Nausea and Vomiting Oxycodone HCl 5 mg 12/11/20 16:51 Oxycodone Hcl Immed Release 5 Mg Tablet PO Q6H PRN Pain, Mild (Pain Scale 1-3) Pantoprazole Sodium 40 mg 12/12/20 06:30 12/12/20 06:23 Pantoprazole Sodium 40 Mg/10 Ml Vial IVPUSH 40 mg BID@0630,1630 GERTRUDIS Administration Sodium Chloride 3 ml 12/12/20 00:00 12/12/20 08:16 0.9 % Sodium Chloride Flush 3 Ml Syringe IVFLUSH 3 ml QSHIFT GERTRUDIS Administration Home Medications Medication Instructions Recorded Confirmed Last Taken Type No Known Home Meds 12/11/20 12/11/20 Unknown History Physical Exam Vital Signs: Vital Signs: Last Vital Signs Temp 99.7 F 12/12/20 07:17 Pulse 88 12/12/20 07:31 Resp 16 12/12/20 07:17 BP 112/60 12/12/20 07:17 Pulse Ox 98 12/12/20 07:17 Body Mass Index 17.3 GENERAL APPEARANCE: in no acute distress. NECK: no jugular venous distention. SKIN: Open ulcer left lower extremity HEART: no murmurs, regular rate and rhythm. LUNGS: clear to auscultation bilaterally. ABDOMEN: soft, nontender. EXTREMITIES: no edema. Left lower extremity is cold below the knee with skin ulceration. NEUROLOGIC: No gross deficits, AAO X 3 Results Labs and Meds Result diagrams: 12/12/20 05:30 12/12/20 05:30 Lab results: Laboratory Results - last 24 hr 12/11/20 12/11/20 12/11/20 11:23 11:23 11:23 WBC 15.1 H RBC 2.87 L Hgb 6.0 L* Hct 21.9 L MCV 76.3 L MCH 20.9 L MCHC 27.4 L RDW 25.1 H Plt Count 397 MPV 9.6 Immature Gran % (Auto) 0.8 H Neut % (Auto) 89.1 H Lymph % (Auto) 5.[address] [place] % (Auto) 4.8 Eos % (Auto) 0.0 Baso % (Auto) 0.1 Lymph # (Auto) 0.[address] [place] # (Auto) 0.7 Eos # (Auto) 0.0 Baso # (Auto) 0.0 Abs Immat Gran (auto) 0.12 H Absolute Neuts (auto) 13.4 H Absolute Nucleated RBC 0.350 H Nucleated RBC % (auto) 2.3 H Smear Path Review PT INR APTT VBG pH VBG pCO2 VBG pO2 VBG HCO3 VBG O2 Saturation VBG Base Excess Sodium Potassium Chloride Carbon Dioxide Anion Gap BUN Creatinine Estim Creat Clear Calc Estimated GFR Random Glucose Estimat Average Glucose Hemoglobin A1c % Calcium Iron TIBC % Saturation Unsat Iron Binding Total Bilirubin Direct Bilirubin AST ALT Alkaline Phosphatase Troponin I High Sens 94.1 H* Total Protein Albumin TSH Coronavirus (PCR) NEGATIVE Influenza Type A (PCR) NEGATIVE Influenza Type B (PCR) NEGATIVE RSV RNA Qual (PCR) NEGATIVE Blood Type Antibody Screen Crossmatch 12/11/20 12/11/20 12/11/20 11:23 11:23 11:24 WBC RBC Hgb Hct MCV MCH MCHC RDW Plt Count MPV Immature Gran % (Auto) Neut % (Auto) Lymph % (Auto) [place] % (Auto) Eos % (Auto) Baso % (Auto) Lymph # (Auto) [place] # (Auto) Eos # (Auto) Baso # (Auto) Abs Immat Gran (auto) Absolute Neuts (auto) Absolute Nucleated RBC Nucleated RBC % (auto) Smear Path Review PT 25.4 H INR 2.1 H APTT 34.7 VBG pH VBG pCO2 VBG pO2 VBG HCO3 VBG O2 Saturation VBG Base Excess Sodium 138 Potassium 4.4 Chloride 100 Carbon Dioxide 27 Anion Gap 15 BUN 14 Creatinine 0.82 Estim Creat Clear Calc 69.4 Estimated GFR > 60 Random Glucose 100 Estimat Average Glucose 85 Hemoglobin A1c % 4.6 Calcium 8.1 L Iron TIBC % Saturation Unsat Iron Binding Total Bilirubin 0.2 Direct Bilirubin < 0.2 AST 23 ALT 11 Alkaline Phosphatase 94 Troponin I High Sens Total Protein 6.1 L Albumin 3.2 L TSH 0.80 Coronavirus (PCR) Influenza Type A (PCR) Influenza Type B (PCR) RSV RNA Qual (PCR) Blood Type Antibody Screen Crossmatch 12/11/20 12/11/20 12/11/20 12:20 13:27 18:02 WBC RBC Hgb Hct MCV MCH MCHC RDW Plt Count MPV Immature Gran % (Auto) Neut % (Auto) Lymph % (Auto) [place] % (Auto) Eos % (Auto) Baso % (Auto) Lymph # (Auto) [place] # (Auto) Eos # (Auto) Baso # (Auto) Abs Immat Gran (auto) Absolute Neuts (auto) Absolute Nucleated RBC Nucleated RBC % (auto) Smear Path Review PT INR APTT VBG pH 7.44 H VBG pCO2 36 VBG pO2 63 VBG HCO3 25 VBG O2 Saturation 88.0 VBG Base Excess 1.2 Sodium Potassium Chloride Carbon Dioxide Anion Gap BUN Creatinine Estim Creat Clear Calc Estimated GFR Random Glucose Estimat Average Glucose Hemoglobin A1c % Calcium Iron TIBC % Saturation Unsat Iron Binding Total Bilirubin Direct Bilirubin AST ALT Alkaline Phosphatase Troponin I High Sens 79.0 H* Total Protein Albumin TSH Coronavirus (PCR) Influenza Type A (PCR) Influenza Type B (PCR) RSV RNA Qual (PCR) Blood Type O Positive Antibody Screen NEGATIVE Crossmatch See Detail 12/11/20 12/11/20 12/12/20 20:52 20:52 05:30 WBC RBC Hgb 9.3 L D Hct 30.3 L D MCV MCH MCHC RDW Plt Count MPV Immature Gran % (Auto) Neut % (Auto) Lymph % (Auto) [place] % (Auto) Eos % (Auto) Baso % (Auto) Lymph # (Auto) [place] # (Auto) Eos # (Auto) Baso # (Auto) Abs Immat Gran (auto) Absolute Neuts (auto) Absolute Nucleated RBC Nucleated RBC % (auto) Smear Path Review PT INR APTT VBG pH VBG pCO2 VBG pO2 VBG HCO3 VBG O2 Saturation VBG Base Excess Sodium Potassium Chloride Carbon Dioxide Anion Gap BUN Creatinine Estim Creat Clear Calc Estimated GFR Random Glucose Estimat Average Glucose Hemoglobin A1c % Calcium Iron 21 L TIBC 196 L % Saturation 11 L Unsat Iron Binding 175 Total Bilirubin Direct Bilirubin AST ALT Alkaline Phosphatase Troponin I High Sens 98.9 H* Total Protein Albumin TSH Coronavirus (PCR) Influenza Type A (PCR) Influenza Type B (PCR) RSV RNA Qual (PCR) Blood Type Antibody Screen Crossmatch 12/12/20 12/12/20 12/12/20 05:30 05:30 05:30 WBC 20.7 H RBC 3.68 L D Hgb 8.9 L Hct 30.3 L MCV 82.3 D MCH 24.2 L MCHC 29.4 L RDW 22.5 H Plt Count 302 MPV 10.4 Immature Gran % (Auto) 1.2 H Neut % (Auto) 89.0 H Lymph % (Auto) 4.[address] [place] % (Auto) 5.6 Eos % (Auto) 0.0 Baso % (Auto) 0.1 Lymph # (Auto) 0.[address] [place] # (Auto) 1.2 Eos # (Auto) 0.0 Baso # (Auto) 0.0 Abs Immat Gran (auto) 0.24 H Absolute Neuts (auto) 18.4 H Absolute Nucleated RBC 0.400 H Nucleated RBC % (auto) 1.9 H Smear Path Review SEE NOTE PT 26.0 H INR 2.2 H APTT VBG pH VBG pCO2 VBG pO2 VBG HCO3 VBG O2 Saturation VBG Base Excess Sodium 139 Potassium 3.9 Chloride 102 Carbon Dioxide 25 Anion Gap 16 BUN 11 Creatinine 0.74 Estim Creat Clear Calc 76.9 Estimated GFR > 60 Random Glucose 71 Estimat Average Glucose Hemoglobin A1c % Calcium 7.7 L Iron TIBC % Saturation Unsat Iron Binding Total Bilirubin Direct Bilirubin AST ALT Alkaline Phosphatase Troponin I High Sens Total Protein Albumin TSH Coronavirus (PCR) Influenza Type A (PCR) Influenza Type B (PCR) RSV RNA Qual (PCR) Blood Type Antibody Screen Crossmatch Imaging Radiologist's impression: Impressions Chest X-Ray 12/11/20 11:02 IMPRESSION: Hyperinflated lungs without acute process. Aorta w/Runoff CTA 12/11/20 12:22 IMPRESSION: Significant intraluminal thrombus in the abdominal aorta. This is located on the left side and appearance is questionable a thrombosed old dissection. Occluded left common internal and external iliac artery. Reconstituted left common femoral artery via collaterals. Patent profunda. Occluded left proximal and mid SFA. Reconstituted distal SFA via collaterals. Patent popliteal artery with significant segmental stenoses. Evaluation of lower leg vessels is limited due to little flow. Patent trifurcation vessels proximally. Patent anterior tibial artery crossing the ankle joint is patent dorsalis pedis artery in the left foot. Patent right common femoral artery. Severe stenosis of the origin of the right internal iliac artery. Occluded right external iliac artery. Reconstituted distal femoral bifurcation. Patent profunda. Patent SFA with severe stenosis of the mid and distal SFA/near occlusion. The popliteal artery with significant stenosis. Limited evaluation of the lower leg vessels due to little flow. Patent trifurcation vessels proximally. Patent posterior tibial artery crosses the ankle joint is patent plantar artery in the right foot Assessment and Plan (1) PVD (peripheral vascular disease): Status: Acute (2) Ischemic leg: Status: Acute (3) Gastrointestinal hemorrhage: Qualifiers: GI bleed type/associated pathology: unspecified gastrointestinal hemorrhage type Qualified Code(s): K92.2 - Gastrointestinal hemorrhage, unspecified Status: Acute (4) Preoperative cardiovascular examination: Status: Acute 65-year-old with tobacco abuse presenting with GI bleed and ischemic left leg. Leg is cold and he has open wounds. He will likely need amputation. He is not physically active and right now he needs surgery as gangrene/infection will be life threatening. I do not think there is any choice and risk stratification will not effect management changes in his case. Based on his overall profile he is high risk for any procedures but he requires endoscopy to understand his bleeding source and if any intervention can be done for that and he requires surgery for his lower extremity because gangrene and infection can be life-threatening. Will check echo to assess LVEF but this should not delay his peocedures. Transfuse and monitor H & H. We will follow along with you. Thank you for allowing me to participate in the care of your patient. Please feel free to contact me if you have any questions. Procedures Date of Service Date of Service: 12/12/20
--- NOTE | 2020-12-12 12:33 | MHC.CLN ---
PT IS SEVERELY MALNOURISHED PT IS MODERATELY DEPLETED SUBCUTANEOUS FAT AND MUSCLE MASS WITH BMI 17 WITH +3 EDEMA PT HAS NOT SEEN A DOCTOR IN OVER 5 YEARS, SMOKER AND HOMEBOUND X 1YEAR WITH REPORTED DEPRESSION DIET RX: NPO WHEN DIET TO ADVANCE RECOMMEND ADDING ENSURE BID TO INCREASE KCALS SUPPLEMENT TO PROVIDE 700KCALS, 40G PROTEIN MONITOR PO INTAKE AND WEIGHT CLOSELY
--- NOTE | 2020-12-12 13:17 | MHC.SHP ---
Pre-Procedural Eval Section A Date of Service: 12/12/20 The patient is an INPATIENT: Yes The History & Physical has been completed within 30 days and I have reviewed it.: Yes Section B Chief Complaint: Leg Pain Allergies: Allergies Allergy/AdvReac Type Severity Reaction Status Date / Time No Known Allergies Allergy Verified 12/11/20 10:57 Plan Diagnosis/Plan: Unchanged I have reviewed the history and physical and performed a pertinent physical examination on my patient. No changes have occurred unless specified.
--- NOTE | 2020-12-12 14:07 | P.CONAN_ITS ---
HPI - Anesthesia Eval Consult details Narrative: 65 year old male for EGD ?GIB PMFSH Active Problems Active Problems: All Active Problems (Updated 12/12/20 @ 10:59 by Arjun Dickinson MD) Preoperative cardiovascular examination (Acute) PVD (peripheral vascular disease) (Acute) Ischemic leg (Acute) Gastrointestinal hemorrhage (Acute) Past Medical History Medical History (Updated 12/12/20 @ 14:21 by Fannie Castano) Anemia Coagulopathy COVID-19 Depression Dyspnea Leukocytosis Smoker Weakness Family History Family history of problems with anesthesia: No Surgical History History of Problems with Anesthesia: No Social History Social History Household Members: Family Household Members Other:: Mom and dad Housing: House Patient Tobacco Use Status: Current everyday Tobacco user Smoked in Last 30 Days: Yes Use of substances other than those prescribed or required for medical reasons: No Currently Displaying Signs/Symptoms of Drug Intoxication Withdrawal: No Have you been hit, kicked, punched, or otherwise hurt by someone within the past year? If so, by whom?: No Do you feel safe in your current relationship?: No Current Relationship Is there a partner from a previous relationship who is making you feel unsafe now?: No Are you made to feel afraid or neglected: No Are you DNR?: No Advance Directives: No Advance Directives Information Provided: No Advance Directives on File: No Do you have thoughts of harming others: None Do you have a plan to hurt others: No Plan Recently lost weight without trying: No Nutrition Risks: No Nutritional Risk service: No Meds Allergies Allergy/AdvReac Type Severity Reaction Status Date / Time No Known Allergies Allergy Verified 12/11/20 10:57 Active Medications: Current Medications Generic Name Dose Route Start Last Admin Trade Name Freq PRN Reason Stop Dose Admin Acetaminophen 650 mg 12/11/20 16:46 Acetaminophen 325 Mg Tablet PO Q6H PRN Pain, Mild (Pain Scale 1-3) Albuterol Sulfate 2.5 mg 12/11/20 20:00 12/12/20 11:10 Albuterol Sulfate (0.083%) 2.5 Mg/3 Ml Vial.Neb INHALE 2.5 mg RQ4H WHILE AWAKE GERTRUDIS Administration Lactated Ringer's 1,000 mls @ 100 mls/hr 12/12/20 14:00 Lr IVCONT .Q10H [facility] Nicotine 21 mg 12/12/20 09:00 12/12/20 09:36 Nicotine 21 Mg Patch.Td24 TRANSDERMA Not Given DAILY GERTRUDIS Ondansetron HCl 4 mg 12/11/20 16:46 Ondansetron Hcl 4 Mg/2 Ml Vial IVPUSH Q8H PRN Nausea and Vomiting Ondansetron HCl 4 mg 12/12/20 14:04 Ondansetron Hcl 4 Mg/2 Ml Vial IVPUSH ONCE PRN Nausea and Vomiting Oxycodone HCl 5 mg 12/11/20 16:51 Oxycodone Hcl Immed Release 5 Mg Tablet PO Q6H PRN Pain, Mild (Pain Scale 1-3) Pantoprazole Sodium 40 mg 12/12/20 06:30 12/12/20 06:23 Pantoprazole Sodium 40 Mg/10 Ml Vial IVPUSH 40 mg BID@0630,1630 GERTRUDIS Administration Sodium Chloride 3 ml 12/12/20 00:00 12/12/20 08:16 0.9 % Sodium Chloride Flush 3 Ml Syringe IVFLUSH 3 ml QSHIFT GERTRUDIS Administration Home Medications Medication Instructions Recorded Confirmed Last Taken Type No Known Home Meds 12/11/20 12/11/20 Unknown History Exam Exam Date and Time: December 12, 2020 1407 Height,Weight and Vital Signs: Height 5 ft 10 in Weight 54.683 kg Last Vital Signs Temp 98.4 F 12/12/20 13:05 Pulse 70 12/12/20 13:05 Resp 20 12/12/20 13:05 BP 109/51 L 12/12/20 13:05 Pulse Ox 100 12/12/20 13:05 Pertinent Lab Results Pertinent Lab Results: Laboratory Tests 12/11/20 12/11/20 12/11/20 11:23 11:23 11:23 WBC 15.1 H RBC 2.87 L Hgb 6.0 L* Hct 21.9 L MCV 76.3 L MCH 20.9 L MCHC 27.4 L RDW 25.1 H Plt Count 397 MPV 9.6 Immature Gran % (Auto) 0.8 H Neut % (Auto) 89.1 H Lymph % (Auto) 5.2 L [place] % (Auto) 4.8 Eos % (Auto) 0.0 Baso % (Auto) 0.1 Lymph # (Auto) 0.8 L [place] # (Auto) 0.7 Eos # (Auto) 0.0 Baso # (Auto) 0.0 Abs Immat Gran (auto) 0.12 H Absolute Neuts (auto) 13.4 H Absolute Nucleated RBC 0.350 H Nucleated RBC % (auto) 2.3 H Smear Path Review PT INR APTT VBG pH VBG pCO2 VBG pO2 VBG HCO3 VBG O2 Saturation VBG Base Excess Sodium Potassium Chloride Carbon Dioxide Anion Gap BUN Creatinine Estim Creat Clear Calc Estimated GFR Random Glucose Estimat Average Glucose Hemoglobin A1c % Calcium Iron TIBC % Saturation Unsat Iron Binding Total Bilirubin Direct Bilirubin AST ALT Alkaline Phosphatase Troponin I High Sens 94.1 H* Total Protein Albumin TSH Coronavirus (PCR) NEGATIVE Influenza Type A (PCR) NEGATIVE Influenza Type B (PCR) NEGATIVE RSV RNA Qual (PCR) NEGATIVE Blood Type Antibody Screen Crossmatch 12/11/20 12/11/20 12/11/20 11:23 11:23 11:24 WBC RBC Hgb Hct MCV MCH MCHC RDW Plt Count MPV Immature Gran % (Auto) Neut % (Auto) Lymph % (Auto) [place] % (Auto) Eos % (Auto) Baso % (Auto) Lymph # (Auto) [place] # (Auto) Eos # (Auto) Baso # (Auto) Abs Immat Gran (auto) Absolute Neuts (auto) Absolute Nucleated RBC Nucleated RBC % (auto) Smear Path Review PT 25.4 H INR 2.1 H APTT 34.7 VBG pH VBG pCO2 VBG pO2 VBG HCO3 VBG O2 Saturation VBG Base Excess Sodium 138 Potassium 4.4 Chloride 100 Carbon Dioxide 27 Anion Gap 15 BUN 14 Creatinine 0.82 Estim Creat Clear Calc 69.4 Estimated GFR > 60 Random Glucose 100 Estimat Average Glucose 85 Hemoglobin A1c % 4.6 Calcium 8.1 L Iron TIBC % Saturation Unsat Iron Binding Total Bilirubin 0.2 Direct Bilirubin < 0.2 AST 23 ALT 11 Alkaline Phosphatase 94 Troponin I High Sens Total Protein 6.1 L Albumin 3.2 L TSH 0.80 Coronavirus (PCR) Influenza Type A (PCR) Influenza Type B (PCR) RSV RNA Qual (PCR) Blood Type Antibody Screen Crossmatch 12/11/20 12/11/20 12/11/20 12:20 13:27 18:02 WBC RBC Hgb Hct MCV MCH MCHC RDW Plt Count MPV Immature Gran % (Auto) Neut % (Auto) Lymph % (Auto) [place] % (Auto) Eos % (Auto) Baso % (Auto) Lymph # (Auto) [place] # (Auto) Eos # (Auto) Baso # (Auto) Abs Immat Gran (auto) Absolute Neuts (auto) Absolute Nucleated RBC Nucleated RBC % (auto) Smear Path Review PT INR APTT VBG pH 7.44 H VBG pCO2 36 VBG pO2 63 VBG HCO3 25 VBG O2 Saturation 88.0 VBG Base Excess 1.2 Sodium Potassium Chloride Carbon Dioxide Anion Gap BUN Creatinine Estim Creat Clear Calc Estimated GFR Random Glucose Estimat Average Glucose Hemoglobin A1c % Calcium Iron TIBC % Saturation Unsat Iron Binding Total Bilirubin Direct Bilirubin AST ALT Alkaline Phosphatase Troponin I High Sens 79.0 H* Total Protein Albumin TSH Coronavirus (PCR) Influenza Type A (PCR) Influenza Type B (PCR) RSV RNA Qual (PCR) Blood Type O Positive Antibody Screen NEGATIVE Crossmatch See Detail 12/11/20 12/11/20 12/12/20 20:52 20:52 05:30 WBC RBC Hgb 9.3 L D Hct 30.3 L D MCV MCH MCHC RDW Plt Count MPV Immature Gran % (Auto) Neut % (Auto) Lymph % (Auto) [place] % (Auto) Eos % (Auto) Baso % (Auto) Lymph # (Auto) [place] # (Auto) Eos # (Auto) Baso # (Auto) Abs Immat Gran (auto) Absolute Neuts (auto) Absolute Nucleated RBC Nucleated RBC % (auto) Smear Path Review PT INR APTT VBG pH VBG pCO2 VBG pO2 VBG HCO3 VBG O2 Saturation VBG Base Excess Sodium Potassium Chloride Carbon Dioxide Anion Gap BUN Creatinine Estim Creat Clear Calc Estimated GFR Random Glucose Estimat Average Glucose Hemoglobin A1c % Calcium Iron 21 L TIBC 196 L % Saturation 11 L Unsat Iron Binding 175 Total Bilirubin Direct Bilirubin AST ALT Alkaline Phosphatase Troponin I High Sens 98.9 H* Total Protein Albumin TSH Coronavirus (PCR) Influenza Type A (PCR) Influenza Type B (PCR) RSV RNA Qual (PCR) Blood Type Antibody Screen Crossmatch 12/12/20 12/12/20 12/12/20 05:30 05:30 05:30 WBC 20.7 H RBC 3.68 L D Hgb 8.9 L Hct 30.3 L MCV 82.3 D MCH 24.2 L MCHC 29.4 L RDW 22.5 H Plt Count 302 MPV 10.4 Immature Gran % (Auto) 1.2 H Neut % (Auto) 89.0 H Lymph % (Auto) 4.1 L [place] % (Auto) 5.6 Eos % (Auto) 0.0 Baso % (Auto) 0.1 Lymph # (Auto) 0.8 L [place] # (Auto) 1.2 Eos # (Auto) 0.0 Baso # (Auto) 0.0 Abs Immat Gran (auto) 0.24 H Absolute Neuts (auto) 18.4 H Absolute Nucleated RBC 0.400 H Nucleated RBC % (auto) 1.9 H Smear Path Review SEE NOTE PT 26.0 H INR 2.2 H APTT VBG pH VBG pCO2 VBG pO2 VBG HCO3 VBG O2 Saturation VBG Base Excess Sodium 139 Potassium 3.9 Chloride 102 Carbon Dioxide 25 Anion Gap 16 BUN 11 Creatinine 0.74 Estim Creat Clear Calc 76.9 Estimated GFR > 60 Random Glucose 71 Estimat Average Glucose Hemoglobin A1c % Calcium 7.7 L Iron TIBC % Saturation Unsat Iron Binding Total Bilirubin Direct Bilirubin AST ALT Alkaline Phosphatase Troponin I High Sens Total Protein Albumin TSH Coronavirus (PCR) Influenza Type A (PCR) Influenza Type B (PCR) RSV RNA Qual (PCR) Blood Type Antibody Screen Crossmatch 12/11/20:CXR- The lungs are hyperinflated but clear of acute process. Heart size and pulmonary vascularity is normal. No gross bony abnormality seen. 12/12/20: EKG-Normal sinus rhythm. Rate 89 Right bundle branch block T wave abnormality, consider lateral ischemia Abnormal ECG When compared with ECG of 11-DEC-2020 12:30, T wave inversion now evident in Lateral leads Airway Mallampati Class: II TM Dist: >3cm Neck ROM: Full Loose/Missing/Broken Teeth: Yes (Edentulous) Heart: RRR Lungs: CTAB Assessment and Plan Assessment Anesthesia Assessment: Anesthesia Plan Discussed and Chart Reviewed Final Anesthetic Review NPO: Yes ASA Class: IV and Emergency Final Preanesthetic Review: No Changes in Pt Med Stat, Meds/Allgs Chart Reviewed, Consent Obtained/Reviewed and Anes Risks/Benef Reviewed Patient Risk: High Procedure Risk: Low Assessment/Block/Sedation in SS: Assess/Block/Sedation-SS Anesthetic Plan Anesthetic Plan: MAC: Disposition: Inp. Admit - IMC
--- NOTE | 2020-12-12 14:11 | P.BOP_ITS ---
Brief Operative Note Date of Service: 12/12/20 Pre-op diagnosis: anemia, melena Post-op diagnosis: same Procedure: see op note Surgeon: Carmen Magallanes MD Anesthesia: MAC Was an Quality Control Microbiology Supervisor used for this Procedure?: No Estimated blood loss (mL): 0 Condition: stable Disposition: PACU
--- NOTE | 2020-12-12 14:11 | W.PM.OPN ---
Operative Note Operative Note Date of Service: 12/12/20 Narrative: Procedure Description: EGD FLEXIBLE TRANSORAL UPPER GASTROINTESTINAL ENDOSCOPY UPPER ENDOSCOPY Consent: Indications for the procedure and potential complications of bleeding, perforation, reaction to medications and missed diagnosis were discussed with the patient and informed consent was obtained. Instrument: Olympus GIF H 190 J mid size upper endoscope Monitoring: Vital signs and clinical assessment, continuous EKG monitoring, Pulse oximetry, Carbon Dioxide monitoring and blood pressure monitoring were done throughout the procedure. Procedure: The patient was placed in the left lateral decubitis position and pre-procedure medications were administered and a bite block was placed. The endoscope was inserted into the mouth and advanced under direct vision to the third part of duodenum. A careful inspection was made as the upper endoscope was withdrawn including a retroflexed examination of the proximal stomach; Findings and interventions are described below. Findings: Larynx:normal Esophagus: GE junction at 40 cm, diaphragm hiatus at 40 cm, no varices, esophagitis noted with short segment barretts appearing mucosa, bx not taken Stomach: Patchy gastric erythema and many erosions and small superficial ulcerations in the antrum. Biopsies were obtained. Grade 2 flap valve on retroflexed examination of the cardia. Duodenum: moderate severe duodenitis with small erosions and ulcerations noted, no active bleeding Intervention: Biopsies as above to r/o h pylori Impression/Findings: ulcerative and erosive gastroduodenitis PLAN: cont with high dose PPI e.g pantoprazole 40 mg BID add carafate 1 gm bid but not at same time as PPI ok for anti coagulation as needed as long as has gastroprotection on board. repeat EGD at future date once ischemic limb dealt with, can be done as o/p check gastrin level, treat h pylori if pos
--- NOTE | 2020-12-12 15:30 | P.PNIM_ITS ---
Subjective Subjective Date of Service: 12/12/20 Interval History: Seen and examined this morning no complaints, understands he will likely need amputation for left leg seen by GI, plan for EGD today Review of Systems Review of Systems: Yes all other systems are reviewed and are negative Constitutional Constitutional: Denies chills and Denies fever(s) Cardiovascular Cardiovascular: Denies chest pain Respiratory Respiratory: Denies cough Gastrointestinal Gastrointestinal: Denies abdominal pain Physical Exam Vital Signs: Vital Signs: Last Vital Signs Temp 99 F 12/12/20 14:17 Pulse 76 12/12/20 15:23 Resp 18 12/12/20 15:23 BP 114/52 L 12/12/20 15:23 Pulse Ox 96 12/12/20 15:23 Body Mass Index 17.3 Const: Nutritional Appearance: well nourished Orientation/consciousness: patient oriented x3 HENMT: Head: Yes normocephalic and Yes atraumatic Eyes: Sclerae: sclerae normal Resp: Effort & Inspection: normal respiratory effort and no respiratory distress Cardio: Rate: regular rate Rhythm: regular rhythm GI: Palpation (GI): Soft to palpation and nontender Skin: Other: Neuro: General: patient oriented x3 Cranial nerves: Yes CN's II-XII intact bilaterally and Yes Bilaterally intact EOM present Objective Data Current Medications Generic Name Dose Route Start Last Admin Trade Name Omarq PRN Reason Stop Dose Admin Acetaminophen 650 mg 12/11/20 16:46 Acetaminophen 325 Mg Tablet PO Q6H PRN Pain, Mild (Pain Scale 1-3) Albuterol Sulfate 2.5 mg 12/11/20 20:00 12/12/20 15:01 Albuterol Sulfate (0.083%) 2.5 Mg/3 Ml Vial.Neb INHALE Not Given RQ4H WHILE AWAKE GERTRUDIS Lactated Ringer's 1,000 mls @ 100 mls/hr 12/12/20 14:00 Lr IVCONT .Q10H GERTRUDIS Nicotine 21 mg 12/12/20 09:00 12/12/20 09:36 Nicotine 21 Mg Patch.Td24 TRANSDERMA Not Given DAILY G[facility] Ondansetron HCl 4 mg 12/11/20 16:46 Ondansetron Hcl 4 Mg/2 Ml Vial IVPUSH Q8H PRN Nausea and Vomiting Ondansetron HCl 4 mg 12/12/20 14:04 Ondansetron Hcl 4 Mg/2 Ml Vial IVPUSH ONCE PRN Nausea and Vomiting Oxycodone HCl 5 mg 12/11/20 16:51 Oxycodone Hcl Immed Release 5 Mg Tablet PO Q6H PRN Pain, Mild (Pain Scale 1-3) Pantoprazole Sodium 40 mg 12/12/20 06:30 12/12/20 06:23 Pantoprazole Sodium 40 Mg/10 Ml Vial IVPUSH 40 mg BID@0630,1630 [facility] Administration Sodium Chloride 3 ml 12/12/20 00:00 12/12/20 08:16 0.9 % Sodium Chloride Flush 3 Ml Syringe IVFLUSH 3 ml QSHIFT [facility] Administration Labs CBC & Chem 7: 12/12/20 05:30 12/12/20 05:30 Labs: Laboratory Results - last 24 hr 12/11/20 12/11/20 12/11/20 11:23 11:23 12:20 WBC RBC Hgb Hct MCV MCH MCHC RDW Plt Count MPV Immature Gran % (Auto) Neut % (Auto) Lymph % (Auto) Stephens % (Auto) Eos % (Auto) Baso % (Auto) Lymph # (Auto) Stephens # (Auto) Eos # (Auto) Baso # (Auto) Abs Immat Gran (auto) Absolute Neuts (auto) Absolute Nucleated RBC Nucleated RBC % (auto) Smear Path Review PT INR VBG pH VBG pCO2 VBG pO2 VBG HCO3 VBG O2 Saturation VBG Base Excess Sodium Potassium Chloride Carbon Dioxide Anion Gap BUN Creatinine Estim Creat Clear Calc Estimated GFR Random Glucose Estimat Average Glucose 85 Hemoglobin A1c % 4.6 Calcium Iron TIBC % Saturation Unsat Iron Binding Troponin I High Sens TSH 0.80 Blood Type O Positive Antibody Screen NEGATIVE Crossmatch See Detail 12/11/20 12/11/20 12/11/20 18:02 20:52 20:52 WBC RBC Hgb 9.3 L D Hct 30.3 L D MCV MCH MCHC RDW Plt Count MPV Immature Gran % (Auto) Neut % (Auto) Lymph % (Auto) Stephens % (Auto) Eos % (Auto) Baso % (Auto) Lymph # (Auto) Stephens # (Auto) Eos # (Auto) Baso # (Auto) Abs Immat Gran (auto) Absolute Neuts (auto) Absolute Nucleated RBC Nucleated RBC % (auto) Smear Path Review PT INR VBG pH 7.44 H VBG pCO2 36 VBG pO2 63 VBG HCO3 25 VBG O2 Saturation 88.0 VBG Base Excess 1.2 Sodium Potassium Chloride Carbon Dioxide Anion Gap BUN Creatinine Estim Creat Clear Calc Estimated GFR Random Glucose Estimat Average Glucose Hemoglobin A1c % Calcium Iron TIBC % Saturation Unsat Iron Binding Troponin I High Sens 98.9 H* TSH Blood Type Antibody Screen Crossmatch 12/12/20 12/12/20 12/12/20 05:30 05:30 05:30 WBC 20.7 H RBC 3.68 L D Hgb 8.9 L Hct 30.3 L MCV 82.3 D MCH 24.2 L MCHC 29.4 L RDW 22.5 H Plt Count 302 MPV 10.4 Immature Gran % (Auto) 1.2 H Neut % (Auto) 89.0 H Lymph % (Auto) 4.1 L Stephens % (Auto) 5.6 Eos % (Auto) 0.0 Baso % (Auto) 0.1 Lymph # (Auto) 0.8 L Stephens # (Auto) 1.2 Eos # (Auto) 0.0 Baso # (Auto) 0.0 Abs Immat Gran (auto) 0.24 H Absolute Neuts (auto) 18.4 H Absolute Nucleated RBC 0.400 H Nucleated RBC % (auto) 1.9 H Smear Path Review SEE NOTE PT 26.0 H INR 2.2 H VBG pH VBG pCO2 VBG pO2 VBG HCO3 VBG O2 Saturation VBG Base Excess Sodium Potassium Chloride Carbon Dioxide Anion Gap BUN Creatinine Estim Creat Clear Calc Estimated GFR Random Glucose Estimat Average Glucose Hemoglobin A1c % Calcium Iron 21 L TIBC 196 L % Saturation 11 L Unsat Iron Binding 175 Troponin I High Sens TSH Blood Type Antibody Screen Crossmatch 12/12/20 05:30 WBC RBC Hgb Hct MCV MCH MCHC RDW Plt Count MPV Immature Gran % (Auto) Neut % (Auto) Lymph % (Auto) Stephens % (Auto) Eos % (Auto) Baso % (Auto) Lymph # (Auto) Stephens # (Auto) Eos # (Auto) Baso # (Auto) Abs Immat Gran (auto) Absolute Neuts (auto) Absolute Nucleated RBC Nucleated RBC % (auto) Smear Path Review PT INR VBG pH VBG pCO2 VBG pO2 VBG HCO3 VBG O2 Saturation VBG Base Excess Sodium 139 Potassium 3.9 Chloride 102 Carbon Dioxide 25 Anion Gap 16 BUN 11 Creatinine 0.74 Estim Creat Clear Calc 76.9 Estimated GFR > 60 Random Glucose 71 Estimat Average Glucose Hemoglobin A1c % Calcium 7.7 L Iron TIBC % Saturation Unsat Iron Binding Troponin I High Sens TSH Blood Type Antibody Screen Crossmatch Quality Stroke Does the patient have a stroke diagnosis?: No VTE Prior VTE?: No VTE Risk Level:: Medical - moderate - high VTE Device Contraindication: N/A - Device Ordered VTE Drug Contraindication: Treatment Not Indicated (gi bleed) Assessment and Plan (1) Elevated troponin: Status: Acute (2) Anemia: Status: Acute (3) PVD (peripheral vascular disease): Status: Acute (4) Ischemic leg: Status: Acute Assessment and Plan: This is a 65-year-old man, who is being admitted with what appears to be ischemic left limb with multiple areas of occlusion and stenosis to the left lower extremity. acute on chronic left leg ischemia -seen by Vascular Surgery, recommend GI and cardiology evaluation prior to surgical intervention -will likely need amputation to left lower extremity. -seen by cardiology, high risk for any procedure but no further workup prior required prior Microcytic Anemia/iron deficiency anemia/acute blood loss anemia s/p transfusion 2 units rbc seen by GI s/p EGD -showing ulcerative and erosive gastroduodenitis -PPI b.i.d., Carafate -follow biopsies -repeat EGD as outpatient after current medical issues resolve -follow cbc Supratherapeutic INR. may be nutritional. No evidence of liver cirrhosis on imaging, LFTs within normal limits avoid correction as the patient has severe occlusion to his left lower extrem ity. -Recheck PT/INR in the morning. Elevated troponin. No chest pain -seen by Cardiology -echo pending Tobacco dependence -NRT Severe protein calorie malnutrition -see full Nutrition note for details DVT ppx - RLE boot due to anemia/left ischemic limb Attending: Dr. steward Full code.
--- NOTE | 2020-12-12 16:55 | P.PNVS_ITS ---
Subjective Subjective Date of Service: 12/12/20 Interval history: pt. seen and examined. s/p EGD. Left leg continues to be ischemic and a source of pain. Physical Exam Vital Signs: Vital Signs: Last Vital Signs Temp 98.3 F 12/12/20 16:43 Pulse 73 12/12/20 16:43 Resp 20 12/12/20 16:43 BP 115/58 L 12/12/20 16:43 Pulse Ox 96 12/12/20 16:43 Body Mass Index 17.3 Const: General: cooperative, healthy appearing and no acute distress Orientation/consciousness: oriented to person, oriented to place and oriented to time HENMT: Head: Yes normal to inspection Neck: Carotids: no bruits Chest: Chest palpation & inspection: normal inspection of the chest Resp: Effort & Inspection: normal respiratory effort and able to speak in complete sentences Auscultation: clear to auscultation bilaterally Cardio: Rate: regular rate Heart sounds: S1 normal heart sound present and S2 normal heart sound present GI: Inspection: Yes normal to inspection Skin: Wounds: wounds noted (left leg ischemic - contracted) Neuro: General: oriented to person, oriented to place, oriented to time and CN's II-XI intact bilaterally Extrem: General: Yes normal to inspection, Yes full ROM and Yes no clubbing, cyanosis or edema Psych: Appearance: grossly normal and well kempt Speech and movement: Normal speech and movement present Affect: normal affect Progress Note: A&P Assessment and plan (1) PVD (peripheral vascular disease): Status: Acute Assessment and Plan: Left leg is ischemic. It is beyond salvage situation. Would like h/h to be stable and INR to come down. Will discuss with patient tomorrow. Will most likely end up with an AKA. Fall Risk Details Current Medications: Current Medications Generic Name Dose Route Start Last Admin Trade Name Freq PRN Reason Stop Dose Admin Acetaminophen 650 mg 12/11/20 16:46 Acetaminophen 325 Mg Tablet PO Q6H PRN Pain, Mild (Pain Scale 1-3) Albuterol Sulfate 2.5 mg 12/11/20 20:00 12/12/20 15:01 Albuterol Sulfate (0.083%) 2.5 Mg/3 Ml Vial.Neb INHALE Not Given RQ4H WHILE AWAKE GERTRUDIS Lactated Ringer's 1,000 mls @ 100 mls/hr 12/12/20 14:00 12/12/20 16:50 Lr IVCONT Not Given .Q10H [facility] Nicotine 21 mg 12/12/20 09:00 12/12/20 09:36 Nicotine 21 Mg Patch.Td24 TRANSDERMA Not Given DAILY [facility] Omeprazole 40 mg 12/12/20 16:49 Omeprazole 40 Mg Capsule.Dr PO BID@0630,1630 [facility] Ondansetron HCl 4 mg 12/11/20 16:46 Ondansetron Hcl 4 Mg/2 Ml Vial IVPUSH Q8H PRN Nausea and Vomiting Ondansetron HCl 4 mg 12/12/20 14:04 Ondansetron Hcl 4 Mg/2 Ml Vial IVPUSH ONCE PRN Nausea and Vomiting Oxycodone HCl 5 mg 12/11/20 16:51 Oxycodone Hcl Immed Release 5 Mg Tablet PO Q6H PRN Pain, Mild (Pain Scale 1-3) Sodium Chloride 3 ml 12/12/20 00:00 12/12/20 16:51 0.9 % Sodium Chloride Flush 3 Ml Syringe IVFLUSH Not Given QSHIFT [facility] Sucralfate 1 gm 12/12/20 16:49 Sucralfate 1 Gm Tablet PO BIDAC GERTRUDIS Time Spent With Patient Time: Total time spent is greater than 50% in coordination of care (as documented) at patient's floor/unit and/or counseling patient: Time with patient: 25 - 35 minutes Procedures Date of Service Date of Service: 12/12/20 Quality Stroke Does the patient have a stroke diagnosis?: No VTE Prior VTE?: No VTE Risk Level:: Medical - moderate - high VTE Device Contraindication: N/A - Device Ordered VTE Drug Contraindication: Treatment Not Indicated (gi bleed)
[2020-12-12] MEDS: Sucralfate 1 GM TABLET PO (17:21)
[2020-12-12] MEDS: Omeprazole 40 MG CAPSULE.DR PO (17:21)
[2020-12-13] VITALS (21 sets, daily range): BP systolic 90–152; BP diastolic 52–72; PULSE 60–97; RESP 16–87; TEMP 36.3–37.4; O2SAT 88–100
[2020-12-13] MEDS: Lactated Ringers 1,000 ML 100 ML IVCONT ×2 (05:54→12:39)
[2020-12-13 06:28] LABS: Hematocrit 30.4 % (42-52); Hemoglobin 8.9 g/dl (14.0-18.0); Mean Corpuscular HGB Conc 29.3 g/dl (31.0-36.0); Mean Corpuscular Hemoglobin 23.9 pg (27.0-33.0); Mean Corpuscular Volume 81.7 fL (80-98); Mean Platelet Volume 9.6 fL (9.4-12.4); Platelet Count 378 X10*3/uL (160-400); Red Blood Count 3.72 X10*6/uL (4.60-5.80); Red Cell Distribution Width 23.5 % (11.0-16.0); White Blood Count 19.3 X10*3/uL (4.8-10.8)
[2020-12-13 06:43] LABS: NRBC Pct Auto 1.2 /100WBC (0.0-0.2)
[2020-12-13 07:08] LABS: INTERNATIONAL NORM RATIO 1.4 (0.9-1.1); Prothrombin Time 17.2 SEC (10.8-13.0)
[2020-12-13 07:11] LABS: Anion Gap 13 (12-20); Blood Urea Nitrogen 12 mg/dL (9-16); Calcium 7.9 mg/dL (8.4-10.2); Carbon Dioxide 29 mmol/L (22-29); Chloride 99 mmol/L (96-108); Estimated Glomerular Filt Rate > 60; Glucose Random 115 mg/dL (60-115); Potassium 3.7 mmol/L (3.3-5.1); Sodium 137 mmol/L (135-145)
[2020-12-13] MEDS: Albuterol Sulfate (0.083%) 2.5 MG/3 ML VIAL.NEB INHALE ×2 (07:32→20:26)
[2020-12-13] MEDS: Nicotine 21 MG PATCH.TD24 TRANSDERMA (08:13)
--- NOTE | 2020-12-13 08:33 | HO.VASCPN ---
Subjective Subjective Date of Service: 12/13/20 Patient reports: still having pain Interval history: Patient seen and examined. Events over the last day reviewed. Patient is status post EGD. Appears to be doing somewhat better. H&H is now stable. Left leg continues to be a significant source of pain and is ischemic. Physical Exam Vital Signs: Vital Signs: Last Vital Signs Temp 97.6 F 12/13/20 03:34 Pulse 88 12/13/20 07:33 Resp 18 12/13/20 03:34 BP 118/58 L 12/13/20 03:34 Pulse Ox 92 12/13/20 03:34 Body Mass Index 17.3 Const: General: cooperative, healthy appearing and no acute distress Orientation/consciousness: oriented to person, oriented to place and oriented to time HENMT: Head: Yes normal to inspection Neck: Carotids: no bruits Chest: Chest palpation & inspection: normal inspection of the chest Resp: Effort & Inspection: normal respiratory effort and able to speak in complete sentences Auscultation: clear to auscultation bilaterally Cardio: Rate: regular rate Heart sounds: S1 normal heart sound present and S2 normal heart sound present GI: Inspection: Yes normal to inspection Skin: General skin exam: no rashes or lesions noted Wounds: wounds noted (Left leg ischemic with ulcerations) Neuro: General: oriented to person, oriented to place, oriented to time and CN's II-XI intact bilaterally Extrem: General: Yes normal to inspection, Yes full ROM and Yes no clubbing, cyanosis or edema Psych: Appearance: grossly normal and well kempt Speech and movement: Normal speech and movement present Affect: normal affect Progress Note: A&P Assessment and plan (1) Ischemic leg: Status: Acute Assessment and Plan: It appears that the patient has stabilized from a hemoglobin standpoint. His leg is ischemic. I did review review CT angiogram and it appears there is no viable bypass options. In addition it appears that this leg has been ischemic for sometime now and does not appear viable. I have discussed this in detail with the patient. The patient will be scheduled for left BKA possible AKA. Risks benefits complications were discussed in detail with the patient the patient agreed and consented. Will schedule for today. Fall Risk Details Current Medications: Current Medications Generic Name Dose Route Start Last Admin Trade Name Freq PRN Reason Stop Dose Admin Acetaminophen 650 mg 12/11/20 16:46 Acetaminophen 325 Mg Tablet PO Q6H PRN Pain, Mild (Pain Scale 1-3) Albuterol Sulfate 2.5 mg 12/11/20 20:00 12/13/20 07:32 Albuterol Sulfate (0.083%) 2.5 Mg/3 Ml Vial.Neb INHALE 2.5 mg RQ4H WHILE AWAKE GERTRUDIS Administration Lactated Ringer's 1,000 mls @ 100 mls/hr 12/12/20 14:00 12/13/20 05:54 Lr IVCONT 100 mls/hr .Q10H GERTRUDIS Administration Nicotine 21 mg 12/12/20 09:00 12/13/20 08:13 Nicotine 21 Mg Patch.Td24 TRANSDERMA 21 mg DAILY GERTRUDIS Administration Omeprazole 40 mg 12/12/20 16:49 12/13/20 05:38 Omeprazole 40 Mg Capsule.Dr PO Not Given BID@0630,1630 GERTR[facility] Ondansetron HCl 4 mg 12/11/20 16:46 Ondansetron Hcl 4 Mg/2 Ml Vial IVPUSH Q8H PRN Nausea and Vomiting Ondansetron HCl 4 mg 12/12/20 14:04 Ondansetron Hcl 4 Mg/2 Ml Vial IVPUSH ONCE PRN Nausea and Vomiting Oxycodone HCl 5 mg 12/11/20 16:51 Oxycodone Hcl Immed Release 5 Mg Tablet PO Q6H PRN Pain, Mild (Pain Scale 1-3) Sodium Chloride 3 ml 12/12/20 00:00 12/13/20 08:17 0.9 % Sodium Chloride Flush 3 Ml Syringe IVFLUSH Not Given QSHIFT GERTRUDIS Sucralfate 1 gm 12/12/20 16:49 12/13/20 08:17 Sucralfate 1 Gm Tablet PO Not Given BIDAC GERTRUDIS Time Spent With Patient Time: Total time spent is greater than 50% in coordination of care (as documented) at patient's floor/unit and/or counseling patient: Time with patient: 25 - 35 minutes Procedures Date of Service Date of Service: 12/13/20 Quality Stroke Does the patient have a stroke diagnosis?: No VTE Prior VTE?: No VTE Risk Level:: Medical - moderate - high VTE Device Contraindication: N/A - Device Ordered VTE Drug Contraindication: Treatment Not Indicated (gi bleed)
--- NOTE | 2020-12-13 08:36 | MHC.SHP ---
Pre-Procedural Eval Section A Date of Service: 12/13/20 The patient is an INPATIENT: Yes The History & Physical has been completed within 30 days and I have reviewed it.: Yes Section B Chief Complaint: Leg Pain Allergies: Allergies Allergy/AdvReac Type Severity Reaction Status Date / Time No Known Allergies Allergy Verified 12/11/20 10:57 Plan I have reviewed the history and physical and performed a pertinent physical examination on my patient. No changes have occurred unless specified.
--- NOTE | 2020-12-13 11:00 | PC.NURSE ---
1100 stg 3 found on left buttock. Wound nse but foam dsg. also she cleansed toes on right foot, and will be placing inter dry cloth between toes. MD aware of stg 3
--- NOTE | 2020-12-13 11:37 | P.PNCA_ITS ---
Subjective Subjective Date of Service: 12/13/20 Principal diagnosis: ischemic limb, GIB, anemia, preop Interval history: Cardiology follow up for the above. Seen at 1015. Today he is observed resting in bed without acute distress. Oriented and conversing. He denies having much discomfort. No sob, palpitation, CP. NPO. Just completed echo at bedside. Left lower leg wrapped with gauze dressing. Review of Systems Review of Systems as above Yes all other systems are reviewed and are negative Physical Exam Vital Signs: Last Vital Signs Temp 97.4 F 12/13/20 08:00 Pulse 93 12/13/20 08:00 Resp 23 H 12/13/20 08:00 BP 142/65 H 12/13/20 08:00 Pulse Ox 92 12/13/20 08:00 Body Mass Index 17.3 Const Other: Frail appearing, pale skin tone General: cooperative, no acute distress, alert and awake Orientation/consciousness: patient oriented x3 Neck Neck: Yes normal visual inspection and Yes no JVD Resp Other: Lungs with fine expiratory wheezes noted, no rales Effort & Inspection: normal respiratory effort, able to speak in complete sentences and not labored Auscultation: clear to auscultation bilaterally, no crackles, no rales and no rhonchi Cardio Palpation: normal PMI Rate: regular rate Rhythm: regular rhythm Heart sounds: S1 normal heart sound present and S2 normal heart sound present Peripheral pulses: Peripheral pulses 2+ throughout Neuro General: patient oriented x3 Extrem Other: dry dressing over left lower leg, toes exposed and are cool to touch, mottled discoloration. Soft swelling noted in right lower leg Results Labs and Meds Result diagrams: 12/13/20 05:58 12/13/20 05:58 Lab results: Laboratory Results - last 24 hr 12/13/20 12/13/20 12/13/20 05:58 05:58 05:58 WBC 19.3 H RBC 3.72 L Hgb 8.9 L Hct 30.4 L MCV 81.7 MCH 23.9 L MCHC 29.3 L RDW 23.5 H Plt Count 378 D MPV 9.6 Absolute Nucleated RBC 0.240 H Nucleated RBC % (auto) 1.2 H PT 17.2 H D INR 1.4 H Sodium 137 Potassium 3.7 Chloride 99 Carbon Dioxide 29 Anion Gap 13 BUN 12 Creatinine 0.67 Estim Creat Clear Calc 85.0 Estimated GFR > 60 Random Glucose 115 D Calcium 7.9 L Progress Note: A&P Assessment and plan (1) Ischemic leg: Status: Acute Assessment and Plan: Ischemic Left lower leg with CTA showing multi area of stenosis, occlusion. Being followed by Dr Pollock with plan for BKA, possible AKA today. (2) PVD (peripheral vascular disease): Status: Acute (3) Gastrointestinal hemorrhage: Status: Acute Assessment and Plan: Admit with GIB, anemia. Has been evaluated by GI. EGD shows ulcerative and erosive gastroduodenitis. Now on Omeprazole and Sucralfate. Anemia stable post transfusion, Hgb 8.9 this am. (4) Anemia: Status: Acute (5) Preoperative cardiovascular examination: Status: Acute Assessment and Plan: Preop for amputation as above. He has ischemic limb and needs surgery as gangrene/infection will be life threatening. Risk stratification will not effect management changes in his case. Based on his overall profile he is high risk for any procedures. He did tolerate EGD yesterday without cardiac issues. Echo performed this am and will be reviewed. Do not need to wait for result prior to his surgery today. Fall Risk Details Current Medications: Current Medications Generic Name Dose Route Start Last Admin Trade Name Freq PRN Reason Stop Dose Admin Acetaminophen 650 mg 12/11/20 16:46 Acetaminophen 325 Mg Tablet PO Q6H PRN Pain, Mild (Pain Scale 1-3) Albuterol Sulfate 2.5 mg 12/11/20 20:00 12/13/20 10:46 Albuterol Sulfate (0.083%) 2.5 Mg/3 Ml Vial.Neb INHALE Not Given RQ4H WHILE AWAKE GERTRUDIS Lactated Ringer's 1,000 mls @ 100 mls/hr 12/12/20 14:00 12/13/20 05:54 Lr IVCONT 100 mls/hr .Q10H GERTRUDIS Administration Nicotine 21 mg 12/12/20 09:00 12/13/20 08:13 Nicotine 21 Mg Patch.Td24 TRANSDERMA 21 mg DAILY GERTRUDIS Administration Omeprazole 40 mg 12/12/20 16:49 12/13/20 05:38 Omeprazole [address] MARIN Not Given BID@0630,1630 [facility] Ondansetron HCl 4 mg 12/11/20 16:46 Ondansetron Hcl 4 Mg/2 Ml Vial IVPUSH Q8H PRN Nausea and Vomiting Ondansetron HCl 4 mg 12/12/20 14:04 Ondansetron Hcl 4 Mg/2 Ml Vial IVPUSH ONCE PRN Nausea and Vomiting Oxycodone HCl 5 mg 12/11/20 16:51 Oxycodone Hcl Immed Release 5 Mg Tablet PO Q6H PRN Pain, Mild (Pain Scale 1-3) Sodium Chloride 3 ml 12/12/20 00:00 12/13/20 08:17 0.9 % Sodium Chloride Flush 3 Ml Syringe IVFLUSH Not Given QSHIFT GER[facility] Sucralfate 1 gm 12/12/20 16:49 12/13/20 08:17 Sucralfate 1 Gm Tablet PO Not Given BIDAC GERTRUDIS Time Spent With Patient Time: Total time spent is greater than 50% in coordination of care (as documented) at patient's floor/unit and/or counseling patient: 23 Time with patient: 15 - 24 minutes Progress Note: Quality Stroke Does the patient have a stroke diagnosis?: No Procedures Date of Service Date of Service: 12/13/20
--- NOTE | 2020-12-13 12:55 | CA_ITS ---
Transthoracic Echocardiogram Patient (Last, First, Middle): Andrew Lazaro, Gender: Male Date of : 1955 Age: 65 Procedure Date: 12/13/2020 Procedure Type: Transthoracic Echocardiogram Location: [facility] [place] Height: 177.8 cm Weight: 54.43 kg BSA: 1.68 m2 Heart Rate: bpm BP: 118 / 58 mmHg Chief Clerk: Referring MD: ARJUN DICKINSON Symptoms: Preop evaluation Study Quality: Fair ECG Rhythm: Sinus Conclusions: - Normal left ventricular size, thickness, systolic function, and wall motion. - Normal right ventricular cavity size and systolic function. Findings Left Ventricle Normal left ventricular size, thickness, systolic function, and wall motion. The visually estimated ejection fraction is between 55-60%. Diastolic function is normal for age. Right Ventricle Normal right ventricular cavity size and systolic function. Atria The left atrium is normal in size. Aortic Valve The aortic valve structure and function is likely normal. There is no aortic valve stenosis. There is no aortic valve regurgitation. Mitral Valve Normal mitral valve structure and function. There is no mitral valve regurgitation. There is no mitral valve stenosis. Pulmonic Valve The pulmonic valve is likely normal. Tricuspid Valve Normal tricuspid valve structure and function. There is mild tricuspid valve regurgitation. Normal right atrial pressure. Mild pulmonary hypertension is present. Great Vessels All visible segments of the aorta are normal in size. The pulmonary artery was not well visualized. Venous The inferior vena cava is normal in size and collapses greater than 50% with inspiration. Pericardium/Pleural There is no evidence of pericardial effusion. Prior Study Comparison No prior study available for comparison. Measurements 2D Linear Measurements IVSd: 0.76 0.6-0.9/0.6-1.0 cm LVIDd: 4.04 3.9-5.3/4.2-5.9 cm LVIDd Index: 2.40 2.4-3.2/2.2-3.1 cm/m2 LVIDs: 2.62 2.0-3.6 cm LVPWd: 0.88 0.7-1.1 cm Ao Root: 2.80 2.1-3.5 cm LA Diam: 3.00 2.7-3.8/3.0-4.0 cm LAIDs Index: 1.79 1.5-2.3 cm/m2 LV Mass: 122.61 67-162/88-224 g LV Mass Index: 72.98 43-95/49-115 g/m2 LVOT Diam: 2.30 3.0+(-)1.3 cm Mitral Valve MV Pk E: 0.72 MV PK A: 0.79 MV Decel Time: 189.00 E/A: 0.90 E'Lateral: 12.60 E'Medial: 8.27 E/E' Med: 8.70 E/E' Lat: 5.70 PHT: 55.00 MVA PHT: 4.00 Decel Sawyer: 3.79 Aortic Valve AoV Pk Jame: 1.67 AoV Mn Jame: 1.05 AoV VTI: 0.28 AoV Pk Grad: 11.00 Aov Mn Grad: 5.00 ALEX Cont.VTI: 1.93 LVOT LVOT Pk Jame: 0.84 LVOT Mn Jame: 0.55 LVOT VTI: 0.13 LVOT Pk Grad: 3.00 LVOT Mn Grad: 1.00 LVOT Diam: 2.30 LVOT Area: 4.15 Diastolic Function MV Pk E: 0.72 MV Pk A: 0.79 E/A: 0.90 E'Medial: 8.27 E/E' Med: 8.70 E' Laterial: 12.60 E/E' Lat: 5.70 Tricuspid Valve TR Pk Jame: 2.90 TR Pk Grad: 34.00 RVSP: 39.00 Great Vessels Aorta Ao Root-2D: 2.80 2.0-3.7 cm Pulmonary Valve PV Pk Jame: 1.34 Peak PV Grad: 7.00 Updated in Other Vendor System with Status of Final Arjun Dickinson MD electronically signed on 12/13/2020 11:14:24 AM with status of Final
--- NOTE | 2020-12-13 13:18 | HO.ANESPROP2 ---
HPI - Anesthesia Eval Consult details Narrative: 65 year old male patient for Left BKA possible Left AKA PMFSH Active Problems Active Problems: All Active Problems (Updated 12/12/20 @ 14:21 by Fannie Castano) Elevated troponin (Acute) Smoker (Acute) Depression (Acute) COVID-19 (Acute) Leukocytosis (Acute) Coagulopathy (Acute) Anemia (Acute) Weakness (Acute) Dyspnea (Acute) Preoperative cardiovascular examination (Acute) PVD (peripheral vascular disease) (Acute) Ischemic leg (Acute) Gastrointestinal hemorrhage (Acute) Past Medical History Medical History (Updated 12/13/20 @ 13:20 by Fannie Castano) Anemia Coagulopathy COVID-19 Depression Dyspnea Leukocytosis Smoker Weakness Family History Family history of problems with anesthesia: No Surgical History Surgical History (Updated 12/13/20 @ 13:27 by Fannie Castano) H/O esophagogastroduodenoscopy History of Problems with Anesthesia: No Social History Social History Household Members: Family Household Members Other:: Mom and dad Housing: House Patient Tobacco Use Status: Current everyday Tobacco user Smoked in Last 30 Days: Yes Use of substances other than those prescribed or required for medical reasons: No Currently Displaying Signs/Symptoms of Drug Intoxication Withdrawal: No Have you been hit, kicked, punched, or otherwise hurt by someone within the past year? If so, by whom?: No Do you feel safe in your current relationship?: No Current Relationship Is there a partner from a previous relationship who is making you feel unsafe now?: No Are you made to feel afraid or neglected: No Are you DNR?: No Advance Directives: No Advance Directives Information Provided: No Advance Directives on File: No Do you have thoughts of harming others: None Do you have a plan to hurt others: No Plan Recently lost weight without trying: No Nutrition Risks: No Nutritional Risk service: No Meds Allergies Allergy/AdvReac Type Severity Reaction Status Date / Time No Known Allergies Allergy Verified 12/11/20 10:57 Active Medications: Current Medications Generic Name Dose Route Start Last Admin Trade Name Freq PRN Reason Stop Dose Admin Acetaminophen 650 mg 12/11/20 16:46 Acetaminophen 325 Mg Tablet PO Q6H PRN Pain, Mild (Pain Scale 1-3) Acetaminophen 650 mg 12/13/20 12:39 Acetaminophen 325 Mg Tablet PO ONCE PRN Pain, Mild (Pain Scale 1-3) Albuterol Sulfate 2.5 mg 12/11/20 20:00 12/13/20 10:46 Albuterol Sulfate (0.083%) 2.5 Mg/3 Ml Vial.Neb INHALE Not Given RQ4H WHILE AWAKE GERTRUDIS Fentanyl 25 mcg 12/13/20 12:37 Fentanyl Citrate/Pf 100 Mcg/2 Ml Vial IVPUSH Q5M PRN Pain, Moderate (Pain Scale 4-6 Hydromorphone HCl 0.25 mg 12/13/20 12:37 Hydromorphone Hcl 0.5 Mg/0.5 Ml Syringe IVPUSH Q5M PRN Pain, Severe (Pain Scale 7-10) Lactated Ringer's 1,000 mls @ 100 mls/hr 12/12/20 14:00 12/13/20 05:54 Lr IVCONT 100 mls/hr .Q10H GERTRUDIS Administration Lactated Ringer's 1,000 mls @ 100 mls/hr 12/13/20 12:45 12/13/20 12:39 Lr IVCONT 100 mls/hr .Q10H GERTRUDIS Administration Promethazine HCl 6.25 mg/ 50.25 mls @ 201 mls/hr 12/13/20 12:39 Sodium Chloride IV ONCE PRN Nausea and Vomiting Nicotine 21 mg 12/12/20 09:00 12/13/20 08:13 Nicotine 21 Mg Patch.Td24 TRANSDERMA 21 mg DAILY GERTRUDIS Administration Omeprazole 40 mg 12/12/20 16:49 12/13/20 05:38 Omeprazole 40 Mg Capsule. PO Not Given BID@0630,1630 [facility] Ondansetron HCl 4 mg 12/11/20 16:46 Ondansetron Hcl 4 Mg/2 Ml Vial IVPUSH Q8H PRN Nausea and Vomiting Ondansetron HCl 4 mg 12/12/20 14:04 Ondansetron Hcl 4 Mg/2 Ml Vial IVPUSH ONCE PRN Nausea and Vomiting Ondansetron HCl 4 mg 12/13/20 12:39 Ondansetron Hcl 4 Mg/2 Ml Vial IVPUSH ONCE PRN Nausea and Vomiting Oxycodone HCl 5 mg 12/11/20 16:51 Oxycodone Hcl Immed Release 5 Mg Tablet PO Q6H PRN Pain, Mild (Pain Scale 1-3) Oxycodone HCl 5 mg 12/13/20 12:39 Oxycodone Hcl Immed Release 5 Mg Tablet PO ONCE PRN Pain, Severe (Pain Scale 7-10) Sodium Chloride 3 ml 12/12/20 00:00 12/13/20 08:17 0.9 % Sodium Chloride Flush 3 Ml Syringe IVFLUSH Not Given QSHIFT GERTRUDIS Sucralfate 1 gm 12/12/20 16:49 12/13/20 08:17 Sucralfate 1 Gm Tablet PO Not Given BIDAC GERTRUDIS Home Medications Medication Instructions Recorded Confirmed Last Taken Type No Known Home Meds 12/11/20 12/11/20 Unknown History Exam Exam Date and Time: December 13, 2020 1318 Height,Weight and Vital Signs: Height 5 ft 10 in Weight 54.683 kg Last Vital Signs Temp 99.4 F 12/13/20 12:04 Pulse 87 12/13/20 12:04 Resp 87 H 12/13/20 12:04 BP 127/67 12/13/20 12:04 Pulse Ox 95 12/13/20 12:04 Pertinent Lab Results Pertinent Lab Results: Laboratory Tests 12/11/20 12/11/20 12/11/20 11:23 11:23 11:23 WBC 15.1 H RBC 2.87 L Hgb 6.0 L* Hct 21.9 L MCV 76.3 L MCH 20.9 L MCHC 27.4 L RDW 25.1 H Plt Count 397 MPV 9.6 Immature Gran % (Auto) 0.8 H Neut % (Auto) 89.1 H Lymph % (Auto) 5.2 L Terrell % (Auto) 4.8 Eos % (Auto) 0.0 Baso % (Auto) 0.1 Lymph # (Auto) 0.8 L Terrell # (Auto) 0.7 Eos # (Auto) 0.0 Baso # (Auto) 0.0 Abs Immat Gran (auto) 0.12 H Absolute Neuts (auto) 13.4 H Absolute Nucleated RBC 0.350 H Nucleated RBC % (auto) 2.3 H Smear Path Review PT INR APTT VBG pH VBG pCO2 VBG pO2 VBG HCO3 VBG O2 Saturation VBG Base Excess Sodium Potassium Chloride Carbon Dioxide Anion Gap BUN Creatinine Estim Creat Clear Calc Estimated GFR Random Glucose Estimat Average Glucose Hemoglobin A1c % Calcium Iron TIBC % Saturation Unsat Iron Binding Total Bilirubin Direct Bilirubin AST ALT Alkaline Phosphatase Troponin I High Sens 94.1 H* Total Protein Albumin TSH Coronavirus (PCR) NEGATIVE Influenza Type A (PCR) NEGATIVE Influenza Type B (PCR) NEGATIVE RSV RNA Qual (PCR) NEGATIVE Blood Type Antibody Screen Crossmatch 12/11/20 12/11/20 12/11/20 11:23 11:23 11:24 WBC RBC Hgb Hct MCV MCH MCHC RDW Plt Count MPV Immature Gran % (Auto) Neut % (Auto) Lymph % (Auto) Terrell % (Auto) Eos % (Auto) Baso % (Auto) Lymph # (Auto) Terrell # (Auto) Eos # (Auto) Baso # (Auto) Abs Immat Gran (auto) Absolute Neuts (auto) Absolute Nucleated RBC Nucleated RBC % (auto) Smear Path Review PT 25.4 H INR 2.1 H APTT 34.7 VBG pH VBG pCO2 VBG pO2 VBG HCO3 VBG O2 Saturation VBG Base Excess Sodium 138 Potassium 4.4 Chloride 100 Carbon Dioxide 27 Anion Gap 15 BUN 14 Creatinine 0.82 Estim Creat Clear Calc 69.4 Estimated GFR > 60 Random Glucose 100 Estimat Average Glucose 85 Hemoglobin A1c % 4.6 Calcium 8.1 L Iron TIBC % Saturation Unsat Iron Binding Total Bilirubin 0.2 Direct Bilirubin < 0.2 AST 23 ALT 11 Alkaline Phosphatase 94 Troponin I High Sens Total Protein 6.1 L Albumin 3.2 L TSH 0.80 Coronavirus (PCR) Influenza Type A (PCR) Influenza Type B (PCR) RSV RNA Qual (PCR) Blood Type Antibody Screen Crossmatch 12/11/20 12/11/20 12/11/20 12:20 13:27 18:02 WBC RBC Hgb Hct MCV MCH MCHC RDW Plt Count MPV Immature Gran % (Auto) Neut % (Auto) Lymph % (Auto) Terrell % (Auto) Eos % (Auto) Baso % (Auto) Lymph # (Auto) Terrell # (Auto) Eos # (Auto) Baso # (Auto) Abs Immat Gran (auto) Absolute Neuts (auto) Absolute Nucleated RBC Nucleated RBC % (auto) Smear Path Review PT INR APTT VBG pH 7.44 H VBG pCO2 36 VBG pO2 63 VBG HCO3 25 VBG O2 Saturation 88.0 VBG Base Excess 1.2 Sodium Potassium Chloride Carbon Dioxide Anion Gap BUN Creatinine Estim Creat Clear Calc Estimated GFR Random Glucose Estimat Average Glucose Hemoglobin A1c % Calcium Iron TIBC % Saturation Unsat Iron Binding Total Bilirubin Direct Bilirubin AST ALT Alkaline Phosphatase Troponin I High Sens 79.0 H* Total Protein Albumin TSH Coronavirus (PCR) Influenza Type A (PCR) Influenza Type B (PCR) RSV RNA Qual (PCR) Blood Type O Positive Antibody Screen NEGATIVE Crossmatch See Detail 12/11/20 12/11/20 12/12/20 20:52 20:52 05:30 WBC RBC Hgb 9.3 L D Hct 30.3 L D MCV MCH MCHC RDW Plt Count MPV Immature Gran % (Auto) Neut % (Auto) Lymph % (Auto) Terrell % (Auto) Eos % (Auto) Baso % (Auto) Lymph # (Auto) Terrell # (Auto) Eos # (Auto) Baso # (Auto) Abs Immat Gran (auto) Absolute Neuts (auto) Absolute Nucleated RBC Nucleated RBC % (auto) Smear Path Review PT INR APTT VBG pH VBG pCO2 VBG pO2 VBG HCO3 VBG O2 Saturation VBG Base Excess Sodium Potassium Chloride Carbon Dioxide Anion Gap BUN Creatinine Estim Creat Clear Calc Estimated GFR Random Glucose Estimat Average Glucose Hemoglobin A1c % Calcium Iron 21 L TIBC 196 L % Saturation 11 L Unsat Iron Binding 175 Total Bilirubin Direct Bilirubin AST ALT Alkaline Phosphatase Troponin I High Sens 98.9 H* Total Protein Albumin TSH Coronavirus (PCR) Influenza Type A (PCR) Influenza Type B (PCR) RSV RNA Qual (PCR) Blood Type Antibody Screen Crossmatch 12/12/20 12/12/20 12/12/20 05:30 05:30 05:30 WBC 20.7 H RBC 3.68 L D Hgb 8.9 L Hct 30.3 L MCV 82.3 D MCH 24.2 L MCHC 29.4 L RDW 22.5 H Plt Count 302 MPV 10.4 Immature Gran % (Auto) 1.2 H Neut % (Auto) 89.0 H Lymph % (Auto) 4.1 L Terrell % (Auto) 5.6 Eos % (Auto) 0.0 Baso % (Auto) 0.1 Lymph # (Auto) 0.8 L Terrell # (Auto) 1.2 Eos # (Auto) 0.0 Baso # (Auto) 0.0 Abs Immat Gran (auto) 0.24 H Absolute Neuts (auto) 18.4 H Absolute Nucleated RBC 0.400 H Nucleated RBC % (auto) 1.9 H Smear Path Review SEE NOTE PT 26.0 H INR 2.2 H APTT VBG pH VBG pCO2 VBG pO2 VBG HCO3 VBG O2 Saturation VBG Base Excess Sodium 139 Potassium 3.9 Chloride 102 Carbon Dioxide 25 Anion Gap 16 BUN 11 Creatinine 0.74 Estim Creat Clear Calc 76.9 Estimated GFR > 60 Random Glucose 71 Estimat Average Glucose Hemoglobin A1c % Calcium 7.7 L Iron TIBC % Saturation Unsat Iron Binding Total Bilirubin Direct Bilirubin AST ALT Alkaline Phosphatase Troponin I High Sens Total Protein Albumin TSH Coronavirus (PCR) Influenza Type A (PCR) Influenza Type B (PCR) RSV RNA Qual (PCR) Blood Type Antibody Screen Crossmatch 12/13/20 12/13/20 12/13/20 05:58 05:58 05:58 WBC 19.3 H RBC 3.72 L Hgb 8.9 L Hct 30.4 L MCV 81.7 MCH 23.9 L MCHC 29.3 L RDW 23.5 H Plt Count 378 D MPV 9.6 Immature Gran % (Auto) Neut % (Auto) Lymph % (Auto) Terrell % (Auto) Eos % (Auto) Baso % (Auto) Lymph # (Auto) Terrell # (Auto) Eos # (Auto) Baso # (Auto) Abs Immat Gran (auto) Absolute Neuts (auto) Absolute Nucleated RBC 0.240 H Nucleated RBC % (auto) 1.2 H Smear Path Review PT 17.2 H D INR 1.4 H APTT VBG pH VBG pCO2 VBG pO2 VBG HCO3 VBG O2 Saturation VBG Base Excess Sodium 137 Potassium 3.7 Chloride 99 Carbon Dioxide 29 Anion Gap 13 BUN 12 Creatinine 0.67 Estim Creat Clear Calc 85.0 Estimated GFR > 60 Random Glucose 115 D Estimat Average Glucose Hemoglobin A1c % Calcium 7.9 L Iron TIBC % Saturation Unsat Iron Binding Total Bilirubin Direct Bilirubin AST ALT Alkaline Phosphatase Troponin I High Sens Total Protein Albumin TSH Coronavirus (PCR) Influenza Type A (PCR) Influenza Type B (PCR) RSV RNA Qual (PCR) Blood Type Antibody Screen Crossmatch Airway Mallampati Class: II TM Dist: >3cm Neck ROM: Full Loose/Missing/Broken Teeth: Yes (Edentulous) Heart: RRR Lungs: CTAB. Rapid. Diminished Assessment and Plan Assessment Anesthesia Assessment: Anesthesia Plan Discussed and Chart Reviewed Final Anesthetic Review NPO: Yes ASA Class: IV and Emergency Final Preanesthetic Review: No Changes in Pt Med Stat, Meds/Allgs Chart Reviewed, Consent Obtained/Reviewed and Anes Risks/Benef Reviewed Patient Risk: High Procedure Risk: Intermediate Assessment/Block/Sedation in SS: Assess/Block/Sedation-SS Anesthetic Plan Anesthetic Plan: GA Disposition: Inp. Admit - IMC
--- NOTE | 2020-12-13 13:29 | MHC.CLN ---
F/U PT REMAINS NPO SX SCHEDULED FOR TODAY WHEN DIET TO ADVANCE RECOMMEND ADDING ENSURE BID TO INCREASE KCALS SUPPLEMENT TO PROVIDE 700KCALS, 40G PROTEIN MONITOR PO INTAKE CLOSELY FOLLOWING
--- NOTE | 2020-12-13 13:44 | P.OP_ITS ---
Operative Note Operative Note Date of Service: 12/13/20 Narrative: Operative note by [facility] Preoperative diagnosis: Ischemic left leg Postoperative diagnosis: Same Procedure: Left above knee amputation Surgeon:Aleksander Pollock M.D. Home Insurance Agent: Brandan Anesthesia: General Specimens: 1 Drains: None Estimated blood loss: 100 mL Indications: Complex 65-year-old gentleman presented with an acutely ischemic left lower extremity on Wednesday. According to the patient it had been going on for 2-3 days. According to the mother it was nearly 2-3 weeks that he was nonambulatory. On presentation he has worked up for GI bleed. He was subsequently transfused and stabilized. The leg was nonviable. Discussion was had with the patient and the patient's mother. We moved forward with left above knee amputation. The patient has signed the informed consent after reviewing risks, complications, benefits, and alternatives previously discussed with the patient. The patient was given the opportunity to ask any additional questions or voice any concerns. All questions were answered to the patient's satisfaction. Procedure in detail: Patient was brought to the operating room prior to which a time-out was called for patient identification and site verification. Left leg was prepped and draped in the standard surgical fashion. Initially we evaluated the below-knee position in all the muscle beds did not appear viable. [place] incision was carried out approximately 5 in above the knee. Incision was carried down to the femur. SFA was identified and ligated with 3-0 silk ties. Great saphenous was ligated in a similar fashion. We then took down all the muscle beds. Using power saw we transected the femur. Once this was accomplished we filed it down and then irrigated the amputation site out thoroughly. Adequate hemostasis was achieved. Fascial layer was brought together using 2 0 poly sore. Skin was closed using 2 0 nylon in a mattress fashion. Skin clips was used for skin as well. Xeroform and sterile dressing were applied. At the end of the case sponge instrument counts were correct. Patient tolerated the procedure well. Returned to recovery with stable vitals. This note is constructed using voice recognition software. While every effort has been made to ensure accuracy, blending operator errors may have been included. Thank you for allowing me to participate in the care of your patient. Yours sincerely, Aleksander Pollock MD, FACS, R.P.V.I.
--- NOTE | 2020-12-13 13:50 | P.PNIM_ITS ---
Subjective Subjective Date of Service: 12/13/20 Interval History: seen and examined this AM no new complaints planned for amputation today, which he is agreeable on foot pain controlled ROS General - no fevers or chills Cardiovascular - no chest pain Respiratory - no shortness of breath or cough Abdominal- no abdominal pain, nausea, vomiting, diarrhea Physical Exam Vital Signs: Vital Signs: Last Vital Signs Temp 99.4 F 12/13/20 12:04 Pulse 87 12/13/20 12:04 Resp 87 H 12/13/20 12:04 BP 127/67 12/13/20 12:04 Pulse Ox 95 12/13/20 12:04 Body Mass Index 17.3 Const: Nutritional Appearance: well nourished Orientation/consciousness: patient oriented x3 HENMT: Head: Yes normocephalic and Yes atraumatic Eyes: Sclerae: sclerae normal Resp: Effort & Inspection: normal respiratory effort and no respiratory distress Cardio: Rate: regular rate Rhythm: regular rhythm GI: Palpation (GI): Soft to palpation and nontender Skin: Other: LLE ischemia -- see pics from note 12/12 Neuro: General: patient oriented x3 Cranial nerves: Yes CN's II-XII intact bilaterally and Yes Bilaterally intact EOM present Objective Data Current Medications Generic Name Dose Route Start Last Admin Trade Name Freq PRN Reason Stop Dose Admin Acetaminophen 650 mg 12/11/20 16:46 Acetaminophen 325 Mg Tablet PO Q6H PRN Pain, Mild (Pain Scale 1-3) Acetaminophen 650 mg 12/13/20 12:39 Acetaminophen 325 Mg Tablet PO ONCE PRN Pain, Mild (Pain Scale 1-3) Albuterol Sulfate 2.5 mg 12/11/20 20:00 12/13/20 10:46 Albuterol Sulfate (0.083%) 2.5 Mg/3 Ml Vial.Neb INHALE Not Given RQ4H WHILE AWAKE GERTRUDIS Fentanyl 25 mcg 12/13/20 12:37 Fentanyl Citrate/Pf 100 Mcg/2 Ml Vial IVPUSH Q5M PRN Pain, Moderate (Pain Scale 4-6 Hydromorphone HCl 0.25 mg 12/13/20 12:37 Hydromorphone Hcl 0.5 Mg/0.5 Ml Syringe IVPUSH Q5M PRN Pain, Severe (Pain Scale 7-10) Lactated Ringer's 1,000 mls @ 100 mls/hr 12/12/20 14:00 12/13/20 05:54 Lr IVCONT 100 mls/hr .Q10H GERTRUDIS Administration Lactated Ringer's 1,000 mls @ 100 mls/hr 12/13/20 12:45 12/13/20 12:39 Lr IVCONT 100 mls/hr .Q10H GERTRUDIS Administration Promethazine HCl 6.25 mg/ 50.25 mls @ 201 mls/hr 12/13/20 12:39 Sodium Chloride IV ONCE PRN Nausea and Vomiting Morphine Sulfate 4 mg 12/13/20 13:43 Morphine Sulfate 4 Mg/Ml Cartridge IVPUSH Q3H PRN Pain, Severe (Pain Scale 7-10) Nicotine 21 mg 12/12/20 09:00 12/13/20 08:13 Nicotine 21 Mg Patch.Td24 TRANSDERMA 21 mg DAILY GERTRUDIS Administration Omeprazole 40 mg 12/12/20 16:49 12/13/20 05:38 Omeprazole 40 Mg Capsule.Dr PO Not Given BID@0630,1630 [facility] Ondansetron HCl 4 mg 12/11/20 16:46 Ondansetron Hcl 4 Mg/2 Ml Vial IVPUSH Q8H PRN Nausea and Vomiting Ondansetron HCl 4 mg 12/12/20 14:04 Ondansetron Hcl 4 Mg/2 Ml Vial IVPUSH ONCE PRN Nausea and Vomiting Ondansetron HCl 4 mg 12/13/20 12:39 Ondansetron Hcl 4 Mg/2 Ml Vial IVPUSH ONCE PRN Nausea and Vomiting Oxycodone HCl 5 mg 12/11/20 16:51 Oxycodone Hcl Immed Release 5 Mg Tablet PO Q6H PRN Pain, Mild (Pain Scale 1-3) Oxycodone HCl 5 mg 12/13/20 12:39 Oxycodone Hcl Immed Release 5 Mg Tablet PO ONCE PRN Pain, Severe (Pain Scale 7-10) Sodium Chloride 3 ml 12/12/20 00:00 12/13/20 08:17 0.9 % Sodium Chloride Flush 3 Ml Syringe IVFLUSH Not Given QSHIFT GERTRUDIS Sucralfate 1 gm 12/12/20 16:49 12/13/20 08:17 Sucralfate 1 Gm Tablet PO Not Given BIDAC [facility] Labs CBC & Chem 7: 12/13/20 05:58 12/13/20 05:58 Labs: Laboratory Results - last 24 hr 12/13/20 12/13/20 12/13/20 05:58 05:58 05:58 WBC 19.3 H RBC 3.72 L Hgb 8.9 L Hct 30.4 L MCV 81.7 MCH 23.9 L MCHC 29.3 L RDW 23.5 H Plt Count 378 D MPV 9.6 Absolute Nucleated RBC 0.240 H Nucleated RBC % (auto) 1.2 H PT 17.2 H D INR 1.4 H Sodium 137 Potassium 3.7 Chloride 99 Carbon Dioxide 29 Anion Gap 13 BUN 12 Creatinine 0.67 Estim Creat Clear Calc 85.0 Estimated GFR > 60 Random Glucose 115 D Calcium 7.9 L Quality Stroke Does the patient have a stroke diagnosis?: No VTE Prior VTE?: No VTE Risk Level:: Medical - moderate - high VTE Device Contraindication: N/A - Device Ordered VTE Drug Contraindication: Treatment Not Indicated (gi bleed) Assessment and Plan (1) Elevated troponin: Status: Acute (2) Anemia: Status: Acute (3) PVD (peripheral vascular disease): Status: Acute (4) Ischemic leg: Status: Acute Assessment and Plan: This is a 65-year-old man, who is being admitted with what appears to be ischemic left limb with multiple areas of occlusion and stenosis to the left lower extremity. acute on chronic left leg ischemia plan for amputation today AKA vs BKA remains high risk for any surgical procedure, but given his ishcemic leg and risk for gangrene / infection - no alternatives acute blood loss anemia secondary to acute/chronic gi bleed s/p 2 units prbcs and upper endo showing ulcerative and erosive gastroduodenitis PPI + Carafate h/h stable > 24 hours now Supratherapeutic INR likely nutrition, improving towards normal on its own Elevated troponin. No chest pain cardiology on the case echo done today, pending results Tobacco dependence -NRT Severe protein calorie malnutrition -see full Nutrition note for details DVT ppx - RLE boot due to anemia/left ischemic limb Full code
[2020-12-13] MEDS: ceFAZolin Sodium/Dextrose,Iso 2 GM/50 ML PIGGYBACK IV (15:29)
[2020-12-13] MEDS: 0.9 % Sodium Chloride Flush 3 ML SYRINGE IVFLUSH (15:43)
--- NOTE | 2020-12-13 16:41 | PM.CCN ---
Critical Care Event Note Summary Date of Service: 12/13/20 Code activated: No Narrative: 65-year-old gentleman admitted with acute on chronic left lower extremity ischemia, today status post left AKA, unable to extubate in OR, transferred to the intensive care for postop care. Critical Care Time (minutes): 0
[2020-12-13] MEDS: Naloxone HCl 0.4 MG/ML VIAL IVPUSH (16:51)
[2020-12-13 17:25] LABS: VBG Base Excess 8.2 mmol/L; VBG HCO3 38 mmol/L (22-26); VBG pCO2 86 mmHg; VBG pH 7.25 (7.32-7.43); VBG pO2 44 mmHg
[2020-12-13 17:37] LABS: Basophils Percent Auto 0.1 % (0-2); Hematocrit 31.4 % (42-52); Hemoglobin 8.9 g/dl (14.0-18.0); Imm Gran Abs Auto 0.47 X10*3/uL (0.00-0.03); Imm Gran Pct Auto 2.3 % (0.0-0.4); Lymphocytes Absolute Auto 0.5 X10*3/uL (1.2-4.9); Lymphocytes Percent Auto 2.3 % (20-40); MANUAL DIFF FLAG SCAN; Mean Corpuscular HGB Conc 28.3 g/dl (31.0-36.0); Mean Corpuscular Hemoglobin 24.1 pg (27.0-33.0); Mean Corpuscular Volume 85.1 fL (80-98); Mean Platelet Volume 9.3 fL (9.4-12.4); Monocytes Absolute Auto 0.4 X10*3/uL (0.1-1.2); Monocytes Percent Auto 1.9 % (2-11); NRBC Pct Auto 0.8 /100WBC (0.0-0.2); Neutrophils Absolute Auto 19.1 X10*3/uL (2.0-8.3); Neutrophils Percent Auto 93.4 % (45-73); Platelet Count 357 X10*3/uL (160-400); Red Blood Count 3.69 X10*6/uL (4.60-5.80); Red Cell Distribution Width 23.6 % (11.0-16.0); SCAN SMEAR FLAG 1; White Blood Count 20.5 X10*3/uL (4.8-10.8)
[2020-12-13] MEDS: dexmedeTOMIDidine HCL/NS 400 MCG/100 ML INFUS..BTL 13.67 MCG IVCONT (17:37)
[2020-12-13] MEDS: Heparin Sodium,Porcine 5,000 UNIT/ML VIAL 5000 UNIT SUBCUT (17:44)
--- NOTE | 2020-12-13 17:48 | PC.NURSE ---
Addendum entered by Magali Ureña RN 12/13/20 18:48: PATIENT REMAINS ON PRECEDEX DRIP. BP AND HR NOTED TO BE SLOWLY TRENDING DOWN. MD NOTIFIED. ORDER FOR ALBUMIN ADMINISTERED AND PRECEDEX DRIP TITRATED TO 0.4 MCG/KG/HR PER MD. PRECEDEX DRIP NOW CURRENTLY ON HOLD FOR ALBUMIN ADMIN. ATTEMPTED TO OBTAIN ANOTHER IV ACCESS SITE BUT UNABLE. FLASH WELDING MACHINE OPERATOR AWARE. WILL RESTART PRECEDEX AFTER ALBUMIN AND WILL REPORT TO NIGHT RN. Original Note: PATIENT ARRIVED FROM PACU INTUBATED AND UNRESPONSIVE S/P LEFT AKA. ETT 7.5 AND 25 DAGOBERTO. PLACED ON PS 8/5 AND 40% FIO2 SETTINGS BY RT AND MD. PER MD, 0.4 MG OF IV NARCAN GIVEN WITH MINIMAL EFFECT, PATIENT ATTEMPTING TO OPEN EYES TO STERNAL RUB ONLY OTHERWISE UNRESPONSIVE AND FLACCID. SOFT LIMB RESTRAINTS APPLIED FOR PATIENT SAFETY. VBGS DRAWN 7.//44/38, NOTIFIED MD. PER MD, PLACED ON AC SETTINGS RATE 18, TIDAL VOLUME 450, PEEP 5 AND 40% FIO2 BY RT AND PATIENT STARTED ON PRECEDEX DRIP. REMAINS LETHARGIC AND UNRESPONSIVE. VSS. FEMORAL PULSES PRESENT. LEFT AKA POST OP DRESSING C/D/I. 1730 OBTAINED TELEPHONE ORDER FROM FOR 5,000 UNITS SUBCUTANEOUS HEPARIN Q8HR [facility], FIRST DOSE TO BE GIVEN NOW. READ BACK. ADMINISTERED. PATIENT'S MOTHER ESTRADA ([phone]) UPDATED ON PATIENTS ADMISSION TO ICU AND HEALTH CARE STATUS.
[2020-12-13 17:58] LABS: Alanine Aminotransferase 10 U/L (0-40); Albumin Level 2.4 g/dL (3.5-5.0); Alkaline Phosphatase 77 U/L (39-117); Anion Gap 12 (12-20); Aspartate Amino Transferase 28 U/L (5-37); Bilirubin Total 0.2 mg/dL (0.0-1.0); Blood Urea Nitrogen 10 mg/dL (9-16); Calcium 7.7 mg/dL (8.4-10.2); Carbon Dioxide 29 mmol/L (22-29); Chloride 101 mmol/L (96-108); Creatinine Clr Calc Pharmacy 81.3; Estimated Glomerular Filt Rate > 60; Glucose Random 133 mg/dL (60-115); Magnesium 2.1 mg/dL (1.6-2.6); Phosphorus 3.8 mg/dL (2.7-4.5); Potassium 4.3 mmol/L (3.3-5.1); Sodium 138 mmol/L (135-145); Total Protein 4.8 g/dL (6.5-8.0)
[2020-12-13] MEDS: Albumin Human 25 % 100 ML IV (18:40)
[2020-12-13 19:11] LABS: Venous Blood Gas Refer to POC result
[2020-12-13 21:29] LABS: SLIDE REVIEW VERIFIED
--- NOTE | 2020-12-13 22:31 | PC.NURSE ---
of concern was a very small amount of urine noted in external male catheter collection device. a bladder scan was performed which revealed >999 of urine. midlevel provider nasim lowery notified of urine retention. plan insert straight cathtyer. using aseptic technique, # 14 fr sinha catheter passed aseptically and traumatically. 1000 ml of conc wandy urine obtained. pt is more awake. he nods to question. mouthing words. complexion pale. left abka wrapped and intact. no staining. right foot pulses are absent. able to obtain popliteal pulse with Doppler.transorally intubated and mechanically ventilated ac 18 vt 450 fio2 40% peep 5 cm. breath sounds diminished with insp wheezes noted. suctioned via in-line for moderate amounts of thin clear and creamy phelgm. ecg displays sr. b/p has improved following albumin.
[2020-12-14] VITALS (30 sets, daily range): BP systolic 97–142; BP diastolic 54–82; PULSE 64–102; RESP 13–21; TEMP 36.6–37.7; O2SAT 89–100
[2020-12-14] MEDS: 0.9 % Sodium Chloride Flush 3 ML SYRINGE IVFLUSH ×4 (00:02→23:17)
[2020-12-14] MEDS: Albumin Human 25 % 100 ML IV ×3 (00:04→12:56)
[2020-12-14] MEDS: Heparin Sodium,Porcine 5,000 UNIT/ML VIAL 5000 UNIT SUBCUT ×3 (01:54→16:30)
[2020-12-14 05:13] LABS: VBG Base Excess 5.4 mmol/L; VBG HCO3 29 mmol/L (22-26); VBG pCO2 38 mmHg; VBG pH 7.48 (7.32-7.43); VBG pO2 84 mmHg
[2020-12-14 05:14] LABS: Basophils Percent Auto 0.1 % (0-2); Hematocrit 23.9 % (42-52); Imm Gran Pct Auto 0.8 % (0.0-0.4); Lymphocytes Absolute Auto 0.6 X10*3/uL (1.2-4.9); Lymphocytes Percent Auto 4.9 % (20-40); MANUAL DIFF FLAG SCAN; Mean Corpuscular HGB Conc 29.3 g/dl (31.0-36.0); Mean Corpuscular Hemoglobin 24.5 pg (27.0-33.0); Mean Corpuscular Volume 83.6 fL (80-98); Mean Platelet Volume 9.2 fL (9.4-12.4); Monocytes Absolute Auto 0.2 X10*3/uL (0.1-1.2); Monocytes Percent Auto 1.8 % (2-11); NRBC Pct Auto 1.1 /100WBC (0.0-0.2); Neutrophils Percent Auto 92.4 % (45-73); Platelet Count 306 X10*3/uL (160-400); Red Blood Count 2.86 X10*6/uL (4.60-5.80); Red Cell Distribution Width 23.9 % (11.0-16.0); SCAN SMEAR FLAG 1
[2020-12-14 05:36] LABS: SLIDE REVIEW VERIFIED
[2020-12-14 05:48] LABS: Anion Gap 11 (12-20); Blood Urea Nitrogen 13 mg/dL (9-16); Calcium 8.3 mg/dL (8.4-10.2); Carbon Dioxide 29 mmol/L (22-29); Chloride 101 mmol/L (96-108); Estimated Glomerular Filt Rate > 60; Glucose Random 118 mg/dL (60-115); Magnesium 2.2 mg/dL (1.6-2.6); Phosphorus 2.5 mg/dL (2.7-4.5); Potassium 4.2 mmol/L (3.3-5.1); Sodium 137 mmol/L (135-145)
[2020-12-14 06:14] LABS: Venous Blood Gas Refer to POC result
[2020-12-14] MEDS: Nicotine 21 MG PATCH.TD24 TRANSDERMA (08:30)
[2020-12-14] MEDS: Albuterol Sulfate (0.083%) 2.5 MG/3 ML VIAL.NEB INHALE ×3 (09:15→16:10)
[2020-12-14] MEDS: Potassium Phosphate 30 MMOL in 0.9 % Sodium Chloride 500 ML 85 MMOL IV (10:22)
--- NOTE | 2020-12-14 12:04 | PM.CCPN ---
Subjective Subjective Date of Service: 12/14/20 Interval History: 65-year-old gentleman with underlying history of remote alcohol abuse admitted on 12/11/2020 with what appears to be acute on chronic left leg ischemia requiring AKA on 12/13/2020. His hospital course also was complicated by subacute blood loss anemia secondary to acute on chronic gastroduodenitis demonstrated on EGD on 12/12/2020. Patient was not being able to be extubated in OR on 12/13/2020 and he was transferred in the intensive care unit for postop care. Patient was routinely extubated this a.m.. No events overnight. Critical Care Time (minutes): 45 Physical Exam Vital Signs: Vital Signs: Last Vital Signs Temp 99.5 F 12/14/20 11:00 Pulse 81 12/14/20 11:42 Resp 19 12/14/20 11:00 BP 112/59 L 12/14/20 11:00 Pulse Ox 89 L 12/14/20 11:00 Body Mass Index 17.3 Const: General: no acute distress, alert and awake Eyes: Sclerae: sclerae normal EOM: EOMs intact bilaterally Neck: Neck: Yes no lymphadenopathy, Yes trachea midline and Yes supple Resp: Effort & Inspection: normal respiratory effort and no respiratory distress Auscultation: clear to auscultation bilaterally Cardio: Rate: regular rate Rhythm: regular rhythm Heart sounds: no gallops, no murmurs and no rubs GI: Palpation (GI): Soft to palpation and Other GI palpation findings present ( Nontender) Auscultation: normal bowel sounds Extrem: General: Yes no pedal edema, No clubbing, No cyanosis and Yes other (Left AKA) Objective Data Labs CBC & Chem 7: 12/14/20 05:07 12/14/20 05:07 Labs: Laboratory Results - last 24 hr 12/11/20 12/13/20 12/13/20 12:20 17:18 17:20 WBC 20.5 H RBC 3.69 L Hgb 8.9 L Hct 31.4 L MCV 85.1 MCH 24.1 L MCHC 28.3 L RDW 23.6 H Plt Count 357 MPV 9.3 L Immature Gran % (Auto) 2.3 H Neut % (Auto) 93.4 H Lymph % (Auto) 2.3 L [place] % (Auto) 1.9 L Eos % (Auto) 0.0 Baso % (Auto) 0.1 Lymph # (Auto) 0.5 L [place] # (Auto) 0.4 Eos # (Auto) 0.0 Baso # (Auto) 0.0 Abs Immat Gran (auto) 0.47 H Absolute Neuts (auto) 19.1 H Absolute Nucleated RBC 0.160 H Nucleated RBC % (auto) 0.8 H Smear Tech's Comments VERIFIED VBG pH 7.25 L VBG pCO2 86 VBG pO2 44 VBG HCO3 38 H VBG O2 Saturation 61.0 VBG Base Excess 8.2 Sodium Potassium Chloride Carbon Dioxide Anion Gap BUN Creatinine Estim Creat Clear Calc Estimated GFR Random Glucose Calcium Phosphorus Magnesium Total Bilirubin AST ALT Alkaline Phosphatase Total Protein Albumin Blood Type O Positive Antibody Screen NEGATIVE Crossmatch See Detail 12/13/20 12/14/20 12/14/20 17:20 05:04 05:07 WBC 13.0 H RBC 2.86 L D Hgb 7.0 L* D Hct 23.9 L D MCV 83.6 MCH 24.5 L MCHC 29.3 L RDW 23.9 H Plt Count 306 MPV 9.2 L Immature Gran % (Auto) 0.8 H Neut % (Auto) 92.4 H Lymph % (Auto) 4.9 L [place] % (Auto) 1.8 L Eos % (Auto) 0.0 Baso % (Auto) 0.1 Lymph # (Auto) 0.6 L [place] # (Auto) 0.2 Eos # (Auto) 0.0 Baso # (Auto) 0.0 Abs Immat Gran (auto) 0.10 H Absolute Neuts (auto) 12.0 H Absolute Nucleated RBC 0.140 H Nucleated RBC % (auto) 1.1 H Smear Tech's Comments VERIFIED VBG pH 7.48 H VBG pCO2 38 VBG pO2 84 VBG HCO3 29 H VBG O2 Saturation 97.0 VBG Base Excess 5.4 Sodium 138 Potassium 4.3 Chloride 101 Carbon Dioxide 29 Anion Gap 12 BUN 10 Creatinine 0.70 Estim Creat Clear Calc 81.3 Estimated GFR > 60 Random Glucose 133 H Calcium 7.7 L Phosphorus 3.8 Magnesium 2.1 Total Bilirubin 0.2 AST 28 ALT 10 Alkaline Phosphatase 77 Total Protein 4.8 L D Albumin 2.4 L D Blood Type Antibody Screen Crossmatch 12/14/20 05:07 WBC RBC Hgb Hct MCV MCH MCHC RDW Plt Count MPV Immature Gran % (Auto) Neut % (Auto) Lymph % (Auto) [place] % (Auto) Eos % (Auto) Baso % (Auto) Lymph # (Auto) [place] # (Auto) Eos # (Auto) Baso # (Auto) Abs Immat Gran (auto) Absolute Neuts (auto) Absolute Nucleated RBC Nucleated RBC % (auto) Smear Tech's Comments VBG pH VBG pCO2 VBG pO2 VBG HCO3 VBG O2 Saturation VBG Base Excess Sodium 137 Potassium 4.2 Chloride 101 Carbon Dioxide 29 Anion Gap 11 L BUN 13 Creatinine 0.67 Estim Creat Clear Calc 85.0 Estimated GFR > 60 Random Glucose 118 H Calcium 8.3 L D Phosphorus 2.5 L Magnesium 2.2 Total Bilirubin AST ALT Alkaline Phosphatase Total Protein Albumin 3.0 L D Blood Type Antibody Screen Crossmatch Progress Note: A&P Assessment and plan (1) Anemia: Status: Acute Assessment and Plan: Assessment: 65-year-old gentleman admitted with acute on chronic left lower extremity ischemia further complicated by subacute anemia and acute on chronic gastroduodenitis Plan: Neuro: No acute issues. Cardiac: Peripheral vascular disease. Vascular surgery service care appreciated. Status post left AKA for acute on chronic left leg ischemia. Pulmonary: Unable to be extubated immediately after the AKA, transferred to intensive care unit intubated and extubated routinely on 12/15/2019 in a.m. Renal: No acute issues. Endo: No acute issues. GI: Gastroduodenitis. Gastroenterology service care appreciated. Continue with PPI. ID: No acute issues Heme/Onc: Subacute anemia secondary to gastric duodenitis. Transfused 1 unit of packed red blood cells this a.m. Psych: No acute issues. Miscellaneous: No acute issues. Prophylaxis: Heparin, ppi Diet: Diabetic Critical care time spent: 45 minutes (2) PVD (peripheral vascular disease): Status: Acute (3) Critical ischemia of lower extremity: Status: Acute (4) Gastritis/duodenitis: Status: Acute Quality Stroke Does the patient have a stroke diagnosis?: No VTE Prior VTE?: No VTE Risk Level:: Medical - moderate - high VTE Device Contraindication: N/A - Device Ordered VTE Drug Contraindication: Treatment Not Indicated (gi bleed)
--- NOTE | 2020-12-14 13:07 | P.PNIM_ITS ---
Subjective Subjective Date of Service: 12/14/20 Interval History: follow-up transferred from ICU, post AKA, inability to extubate extubated this morning in the ICU [place] [facility] [place] Exam Vital Signs: Vital Signs: Last Vital Signs Temp 99.5 F 12/14/20 12:00 Pulse 82 12/14/20 12:59 Resp 13 12/14/20 12:59 BP 130/64 12/14/20 12:59 Pulse Ox 97 12/14/20 12:59 Body Mass Index 17.3 pale and weak appearing lung sounds dim heart regular rate rhythm, clear S1, S2 positive bowel sounds, abdomen is soft, nontender neuro patient is alert. no noted focal deficits Left AKA Objective Data Current Medications Generic Name Dose Route Start Last Admin Trade Name Freq PRN Reason Stop Dose Admin Acetaminophen 650 mg 12/11/20 16:46 Acetaminophen 325 Mg Tablet PO Q6H PRN Pain, Mild (Pain Scale 1-3) Acetaminophen 650 mg 12/13/20 12:39 Acetaminophen 325 Mg Tablet PO ONCE PRN Pain, Mild (Pain Scale 1-3) Albuterol Sulfate 2.5 mg 12/11/20 20:00 12/14/20 11:39 Albuterol Sulfate (0.083%) 2.5 Mg/3 Ml Vial.Neb INHALE 2.5 mg RQ4H WHILE AWAKE GERTRUDIS Administration Fentanyl 25 mcg 12/14/20 10:44 Fentanyl Citrate/Pf 100 Mcg/2 Ml Vial IVPUSH Q3H PRN Pain, Moderate (Pain Scale 4-6 Heparin Sodium (Porcine) 5,000 unit 12/13/20 17:30 12/14/20 10:22 Heparin Sodium,Porcine 5,000 Unit/Ml Vial SUBCUT 5,000 unit Q8H GERTRUDIS Administration Albumin Human 100 mls @ 100 mls/hr 12/13/20 18:30 12/14/20 12:56 Kedbumin 25 % IV 12/14/20 13:29 100 mls/hr Q6H GERTRUDIS Administration Potassium Phosphate 30 mmol/ 510 mls @ 85 mls/hr 12/14/20 08:26 12/14/20 10:22 Sodium Chloride IV 12/14/20 14:25 85 mls/hr ONCE ONE Administration Nicotine 21 mg 12/12/20 09:00 12/14/20 08:30 Nicotine 21 Mg Patch.Td24 TRANSDERMA 21 mg DAILY GERTRUDIS Administration Omeprazole 40 mg 12/14/20 16:30 Omeprazole 40 Mg Capsule. PO BID@[id number],[id number] [facility] Ondansetron HCl 4 mg 12/11/20 16:46 Ondansetron Hcl 4 Mg/2 Ml Vial IVPUSH Q8H PRN Nausea and Vomiting Sodium Chloride 3 ml 12/12/20 00:00 12/14/20 12:59 0.9 % Sodium Chloride Flush 3 Ml Syringe IVFLUSH 3 ml QSHIFT [facility] Administration Labs CBC & Chem 7: 12/14/20 15:03 12/14/20 05:07 Labs: Laboratory Results - last 24 hr 12/11/20 12/13/20 12/13/20 12:20 17:18 17:20 MCV 85.1 MCH 24.1 L MCHC 28.3 L RDW 23.6 H Plt Count 357 MPV 9.3 L Immature Gran % (Auto) 2.3 H Neut % (Auto) 93.4 H Lymph % (Auto) 2.3 L [place] % (Auto) 1.9 L Eos % (Auto) 0.0 Baso % (Auto) 0.1 Lymph # (Auto) 0.5 L [place] # (Auto) 0.4 Eos # (Auto) 0.0 Baso # (Auto) 0.0 Abs Immat Gran (auto) 0.47 H Absolute Neuts (auto) 19.1 H Absolute Nucleated RBC 0.160 H Nucleated RBC % (auto) 0.8 H Smear Tech's Comments VERIFIED VBG pH 7.25 L VBG pCO2 86 VBG pO2 44 VBG HCO3 38 H VBG O2 Saturation 61.0 VBG Base Excess 8.2 Anion Gap Estim Creat Clear Calc Estimated GFR Random Glucose Calcium Phosphorus Magnesium Total Bilirubin AST ALT Alkaline Phosphatase Total Protein Albumin Blood Type O Positive Antibody Screen NEGATIVE Crossmatch See Detail 12/13/20 12/14/20 12/14/20 17:20 05:04 05:07 MCV 83.6 MCH 24.5 L MCHC 29.3 L RDW 23.9 H Plt Count 306 MPV 9.2 L Immature Gran % (Auto) 0.8 H Neut % (Auto) 92.4 H Lymph % (Auto) 4.9 L [place] % (Auto) 1.8 L Eos % (Auto) 0.0 Baso % (Auto) 0.1 Lymph # (Auto) 0.6 L [place] # (Auto) 0.2 Eos # (Auto) 0.0 Baso # (Auto) 0.0 Abs Immat Gran (auto) 0.10 H Absolute Neuts (auto) 12.0 H Absolute Nucleated RBC 0.140 H Nucleated RBC % (auto) 1.1 H Smear Tech's Comments VERIFIED VBG pH 7.48 H VBG pCO2 38 VBG pO2 84 VBG HCO3 29 H VBG O2 Saturation 97.0 VBG Base Excess 5.4 Anion Gap 12 Estim Creat Clear Calc 81.3 Estimated GFR > 60 Random Glucose 133 H Calcium 7.7 L Phosphorus 3.8 Magnesium 2.1 Total Bilirubin 0.2 AST 28 ALT 10 Alkaline Phosphatase 77 Total Protein 4.8 L D Albumin 2.4 L D Blood Type Antibody Screen Crossmatch 12/14/20 05:07 MCV MCH MCHC RDW Plt Count MPV Immature Gran % (Auto) Neut % (Auto) Lymph % (Auto) [place] % (Auto) Eos % (Auto) Baso % (Auto) Lymph # (Auto) [place] # (Auto) Eos # (Auto) Baso # (Auto) Abs Immat Gran (auto) Absolute Neuts (auto) Absolute Nucleated RBC Nucleated RBC % (auto) Smear Tech's Comments VBG pH VBG pCO2 VBG pO2 VBG HCO3 VBG O2 Saturation VBG Base Excess Anion Gap 11 L Estim Creat Clear Calc 85.0 Estimated GFR > 60 Random Glucose 118 H Calcium 8.3 L D Phosphorus 2.5 L Magnesium 2.2 Total Bilirubin AST ALT Alkaline Phosphatase Total Protein Albumin 3.0 L D Blood Type Antibody Screen Crossmatch Progress Note: A&P (1) Gastritis/duodenitis: Status: Acute (2) Critical ischemia of lower extremity: Status: Acute Assessment and Plan: 65-year-old man, who is being admitted with what appears to be ischemic left limb with multiple areas of occlusion and stenosis to the left lower extremity. status post left [id number] amputation on December 13. He was very difficult to extubate therefore he was transferred to the ICU for further monitoring. He was extubated this morning in the ICU and transferred to the intermediate care floor. Ischemic limb. Status post left [id number] amputation - vascular surgery following - physical therapy evaluation, will likely need short-term rehab - pain management Anemia. Initially patient had GI bleed, packed red blood cells transfused H&H improved EGD showed ulcerative and erosive gastroduodenitis, esophagitis, Nj's esophagus, nonreactive for H pylori continued with high-dose PPI today with low H&H, 1 unit of PRBCs transferred in the ICU, multifactorial as patient is postoperative - continue PPI - HH better after tx today - follow for any overt bleeding Supratherapeutic INR. now 1.4. - Follow PT INR Leukocytosis. improving. No infection noted, likely reactive to ischemia. Follow closely. Elevated troponin. No complaints of chest pain, no acute abnormalities to EKG. We will trend and monitor on telemetry. Elevated blood pressure reading. Improved, now on the lower side . -Monitor DISPO: Lives with his parents, will need STR when medically stable Deep vein thrombosis prophylaxis with right lower extremity mechanical compression boot due to anemia. Attending: Dr. Braden Full code. Quality Stroke Does the patient have a stroke diagnosis?: No VTE Prior VTE?: No VTE Risk Level:: Medical - moderate - high VTE Device Contraindication: N/A - Device Ordered VTE Drug Contraindication: Treatment Not Indicated (gi bleed)
[2020-12-14 15:13] LABS: Hematocrit 28.9 % (42-52); Hemoglobin 8.8 g/dl (14.0-18.0)
[2020-12-14] MEDS: Omeprazole 40 MG CAPSULE.DR PO (16:30)
--- NOTE | 2020-12-14 17:46 | PC.NURSE ---
Pt A&Ox3, extubated at 09, placed on 2L/min NC SaO2 97% nonproductive intermittent cough. Pt able to feed himself. Got 1unit PRBC for H/H of /23.9 repeat 8.8/28.9, earlier in the day pt did have black semi formed BM per RN, however H/H trending up, NSR and BP stable. Prince was placed as pt was having urinary retention. Stage II L buttocks alleyn dressing C/D/I, left leg stump wale wrapped-C/D/I, right dorsalis pedis pulse and posterior tibial pulse palpable, 4+ edema to that leg. Bed locked and in lowest position, call naidu in reach.
--- NOTE | 2020-12-14 19:11 | HO.POSTANES ---
Post Anesthesia Evaluation Post Anesthesia Evaluation Vital Signs: Vital Signs Temp Pulse Resp BP Pulse Ox 12/14/20 18:57 99.7 F 78 17 122/60 98 12/14/20 16:12 80 12/14/20 15:53 99.5 F 81 18 117/55 L 99 12/14/20 14:00 98 12/14/20 12:59 82 13 130/64 97 12/14/20 12:37 98 12/14/20 12:00 99.5 F 86 20 117/54 L 91 L 12/14/20 11:42 81 12/14/20 11:00 99.5 F 78 19 112/59 L 89 L 12/14/20 10:31 99.7 F 72 18 132/63 12/14/20 10:00 79 17 115/66 93 12/14/20 09:06 99.2 F 99 20 119/58 L 12/14/20 09:00 92 16 119/58 L 95 12/14/20 08:48 99.8 F 102 H 18 137/59 L 12/14/20 08:12 69 12/14/20 08:00 99.8 F 68 18 123/58 L 98 Anesthesia: General Endotracheal-GETA Mental Status: Awake Pain Control: Satisfactory Nausea/Vomiting: None Hydration: Adequate Comments: pt had late awakening, started to wake up last night, but was sedated till the morning today until he was extubated
[2020-12-15] VITALS (12 sets, daily range): BP systolic 124–134; BP diastolic 61–68; PULSE 68–95; RESP 16–22; TEMP 37.2–37.5; O2SAT 93–99
[2020-12-15] MEDS: Heparin Sodium,Porcine 5,000 UNIT/ML VIAL 5000 UNIT SUBCUT ×3 (02:28→17:01)
[2020-12-15] MEDS: fentaNYL citrate/PF 100 MCG/2 ML VIAL 25 MCG IVPUSH (02:34)
[2020-12-15 05:31] LABS: Hematocrit 30.8 % (42-52); Hemoglobin 9.1 g/dl (14.0-18.0); Mean Corpuscular HGB Conc 29.5 g/dl (31.0-36.0); Mean Corpuscular Hemoglobin 24.8 pg (27.0-33.0); Mean Corpuscular Volume 83.9 fL (80-98); Mean Platelet Volume 9.3 fL (9.4-12.4); NRBC Pct Auto 0.9 /100WBC (0.0-0.2); Platelet Count 330 X10*3/uL (160-400); Red Blood Count 3.67 X10*6/uL (4.60-5.80); Red Cell Distribution Width 23.2 % (11.0-16.0); White Blood Count 11.5 X10*3/uL (4.8-10.8)
[2020-12-15] MEDS: Omeprazole 40 MG CAPSULE.DR PO ×2 (05:59→17:01)
[2020-12-15 06:01] LABS: Anion Gap 9 (12-20); Blood Urea Nitrogen 11 mg/dL (9-16); Calcium 8.2 mg/dL (8.4-10.2); Carbon Dioxide 34 mmol/L (22-29); Chloride 102 mmol/L (96-108); Creatinine Clr Calc Pharmacy 86.3; Estimated Glomerular Filt Rate > 60; Glucose Random 110 mg/dL (60-115); Potassium 4.8 mmol/L (3.3-5.1); Sodium 140 mmol/L (135-145)
[2020-12-15] MEDS: Albuterol Sulfate (0.083%) 2.5 MG/3 ML VIAL.NEB INHALE ×4 (07:26→19:34)
[2020-12-15] MEDS: Nicotine 21 MG PATCH.TD24 TRANSDERMA (09:59)
--- NOTE | 2020-12-15 12:33 | P.PNIM_ITS ---
Subjective Subjective Date of Service: 12/15/20 Interval History: Follow up AKA doing well Sharp pain on and off to left aka site Physical Exam Vital Signs: Vital Signs: Last Vital Signs Temp 99.0 F 12/15/20 08:00 Pulse 83 12/15/20 11:50 Resp 19 12/15/20 08:00 BP 128/65 12/15/20 08:00 Pulse Ox 98 12/15/20 11:56 Oxygen Flow Rate 2 12/15/20 11:56 Body Mass Index 17.3 Appearing in no acute distress lung sounds are clear to auscultation heart regular rate rhythm, clear S1, S2 positive bowel sounds, abdomen is soft, nontender neuro patient is alert x3, no focal deficits Left AKA, surgical dressing intact, incision at visualized right lower extremity with +2 to 3 pedal edema, positive pedal pulse Objective Data Current Medications Generic Name Dose Route Start Last Admin Trade Name Freq PRN Reason Stop Dose Admin Acetaminophen 650 mg 12/11/20 16:46 Acetaminophen 325 Mg Tablet PO Q6H PRN Pain, Mild (Pain Scale 1-3) Acetaminophen 650 mg 12/13/20 12:39 Acetaminophen 325 Mg Tablet PO ONCE PRN Pain, Mild (Pain Scale 1-3) Albuterol Sulfate 2.5 mg 12/11/20 20:00 12/15/20 11:49 Albuterol Sulfate (0.083%) 2.5 Mg/3 Ml Vial.Neb INHALE 2.5 mg RQ4H WHILE AWAKE GERTRUDIS Administration Fentanyl 25 mcg 12/14/20 10:44 12/15/20 02:34 Fentanyl Citrate/Pf 100 Mcg/2 Ml Vial IVPUSH 25 mcg Q3H PRN Administration Pain, Moderate (Pain Scale 4-6 Heparin Sodium (Porcine) 5,000 unit 12/13/20 17:30 12/15/20 09:59 Heparin Sodium,Porcine 5,000 Unit/Ml Vial SUBCUT 5,000 unit Q8H GERTRUDIS Administration Nicotine 21 mg 12/12/20 09:00 12/15/20 09:59 Nicotine 21 Mg Patch.Td24 TRANSDERMA 21 mg DAILY GERTRUDIS Administration Omeprazole 40 mg 12/14/20 16:30 12/15/20 05:59 Omeprazole 40 Mg Capsule. PO 40 mg BID@[id number],9790 GERTRUDIS Administration Ondansetron HCl 4 mg 12/11/20 16:46 Ondansetron Hcl 4 Mg/2 Ml Vial IVPUSH Q8H PRN Nausea and Vomiting Sodium Chloride 3 ml 12/12/20 00:00 12/15/20 08:57 0.9 % Sodium Chloride Flush 3 Ml Syringe IVFLUSH Not Given QSHIFT GERTRUDIS Labs CBC & Chem 7: 12/15/20 05:24 12/15/20 05:24 Labs: Laboratory Results - last 24 hr 12/15/20 12/15/20 05:24 05:24 MCV 83.9 MCH 24.8 L MCHC 29.5 L RDW 23.2 H Plt Count 330 MPV 9.3 L Absolute Nucleated RBC 0.100 H Nucleated RBC % (auto) 0.9 H Anion Gap 9 L Estim Creat Clear Calc 86.3 Estimated GFR > 60 Random Glucose 110 Calcium 8.2 L Progress Note: A&P (1) Gastritis/duodenitis: Status: Acute (2) Critical ischemia of lower extremity: Status: Acute Assessment and Plan: 65-year-old man, who is being admitted with what appears to be ischemic left limb with multiple areas of occlusion and stenosis to the left lower extremity. status post left [id number]-drh-[id number] amputation on December 13. He was very difficult to extubate therefore he was transferred to the ICU for further monitoring. He was extubated this morning in the ICU and transferred to the intermediate care [facility]. Ischemic limb. Status post left [id number]-ptv-[id number] amputation - vascular surgery following - physical therapy evaluation, will likely need short-term rehab - pain management Anemia. Initially patient had GI bleed, packed red blood cells transfused H&H improved EGD showed ulcerative and erosive gastroduodenitis, esophagitis, Nj's esophagus, nonreactive for H pylori continued with high-dose PPI low H&H, 1 unit of PRBCs transferred in the ICU on 12/14, multifactorial as patient is postoperative - continue PPI - HH better today - follow for any overt bleeding Supratherapeutic INR. now 1.4. - Follow PT INR Leukocytosis. improving. No infection noted, likely reactive to ischemia. Follow closely. Elevated troponin. No complaints of chest pain, no acute abnormalities to EKG. We will trend and monitor on telemetry. Elevated blood pressure reading. Improved, now on the lower side . -Monitor DISPO: Lives with his parents, will need STR when medically stable Deep vein thrombosis prophylaxis with heparin Attending: Dr. Braden Full code. Quality Stroke Does the patient have a stroke diagnosis?: No VTE Prior VTE?: No VTE Risk Level:: Medical - moderate - high VTE Device Contraindication: N/A - Device Ordered VTE Drug Contraindication: Treatment Not Indicated (gi bleed)
[2020-12-15] MEDS: 0.9 % Sodium Chloride Flush 3 ML SYRINGE IVFLUSH (17:01)
[2020-12-15] MEDS: Acetaminophen 325 MG TABLET 650 MG PO (19:09)
[2020-12-16] VITALS (8 sets, daily range): BP systolic 127–145; BP diastolic 82–86; PULSE 75–89; RESP 16–25; TEMP 36.6–37.6; O2SAT 94–98
[2020-12-16] MEDS: Heparin Sodium,Porcine 5,000 UNIT/ML VIAL 5000 UNIT SUBCUT ×3 (00:48→17:39)
[2020-12-16] MEDS: Omeprazole 40 MG CAPSULE.DR PO (07:22)
[2020-12-16] MEDS: Nicotine 21 MG PATCH.TD24 TRANSDERMA (07:22)
[2020-12-16] MEDS: 0.9 % Sodium Chloride Flush 3 ML SYRINGE IVFLUSH ×2 (07:23→16:05)
[2020-12-16] MEDS: Albuterol Sulfate (0.083%) 2.5 MG/3 ML VIAL.NEB INHALE (08:10)
--- NOTE | 2020-12-16 08:40 | MHC.CLN ---
F/U PT'S DIET ADVANCED TO 2GM NA-APPROPRIATE PT WITH INCREASED NUTRITION RISK R/T PRESSURE INJURIES RECOMMEND ADDING ENSURE BID AND SHANI BID TO INCREASE KCALS AND PROMOTE WOUND HEALING SUPPLEMENT TO PROVIDE 860KCALS, 45G PROTEIN MONITOR PO INTAKE CLOSELY
--- NOTE | 2020-12-16 08:52 | PC.NURSE ---
Pt was seen on December 13, patient was found to have a stage 3 on his buttock and macerated skin between his toes. Triad was applied to his stage 3 wound and covered with foam. His right foot and toes were cleaned of skin and inter dry was weaved between toes. Patient later went for a Left AKA.
[2020-12-16] MEDS: Acetaminophen 325 MG TABLET 650 MG PO (10:49)
--- NOTE | 2020-12-16 11:09 | P.PNVS_ITS ---
Subjective Subjective Date of Service: 12/16/20 Patient reports: no new complaints and feels better Interval history: Patient is status post left AKA. He is doing significantly better. Pain much better controlled. In much better spirits today. He is in the ICU but has been transferred [place] [facility] [place] Postprocedure was slow to extubate but is doing extremely well now. Physical Exam Vital Signs: Vital Signs: Last Vital Signs Temp 99.5 F 12/16/20 08:00 Pulse 82 12/16/20 08:10 Resp 25 H 12/16/20 08:00 BP 144/86 H 12/16/20 08:00 Pulse Ox 94 12/16/20 08:00 Oxygen Flow Rate 1 12/15/20 13:06 Body Mass Index 17.3 Const: General: cooperative, healthy appearing and comfortable [place] ation/consciousness: oriented to person, oriented to place and oriented to time HENMT: Head: Yes normal to inspection Neck: Neck: Yes normal visual inspection Carotids: no bruits Chest: Chest palpation & inspection: normal inspection of the chest Resp: Effort & Inspection: normal respiratory effort and able to speak in complete sentences Auscultation: clear to auscultation bilaterally, no crackles, no rales, no rhonchi and no wheezes Cardio: Rate: regular rate Rhythm: regular rhythm Heart sounds: S1 normal heart sound present and S2 normal heart sound present Bruits: no carotid bruits Peripheral pulses: Peripheral pulses 2+ throughout GI: Inspection: Yes normal to inspection Skin: Wounds: amputation site ( Dressing changed, appears to be healing well) Hair: normal Neuro: General: oriented to person, oriented to place and oriented to time Cranial nerves: Yes CN's II-XII intact bilaterally and Yes Normal hearing present Cognition (Neuro): normal cognition Motor exam (neuro): 5/5 motor strength present throughout Extrem: Other: venous exam: No significant superficial varicosities or s pider telangiectasias, minimal edema General: No clubbing, No cyanosis and No edema Psych: Appearance: grossly normal Mental Status: mental status grossly normal Speech and movement: Normal speech and movement present Progress Note: A&P Assessment and plan (1) Ischemic leg: Status: Acute Assessment and Plan: patient is status post left above knee amputation. He is doing extremely well. Would continue local wound care. Will get physical therapy evaluation. Hopefully will be able to get him out of the hospital within the next few days. Thank you for allowing us to assist in his care. Fall Risk Details Current Medications: Current Medications Generic Name Dose Route Start Last Admin Trade Name Katherine PRN Reason Stop Dose Admin Acetaminophen 650 mg 12/11/20 16:46 12/16/20 10:49 Acetaminophen 325 Mg Tablet PO 650 mg Q6H PRN Administration Pain, Mild (Pain Scale 1-3) Acetaminophen 650 mg 12/13/20 12:39 Acetaminophen 325 Mg Tablet PO ONCE PRN Pain, Mild (Pain Scale 1-3) Albuterol Sulfate 2.5 mg 12/11/20 20:00 12/16/20 08:10 Albuterol Sulfate (0.083%) 2.5 Mg/3 Ml Vial.Neb INHALE 2.5 mg RQ4H WHILE AWAKE GERTRUDIS Administration Fentanyl 25 mcg 12/14/20 10:44 12/15/20 02:34 Fentanyl Citrate/Pf 100 Mcg/2 Ml Vial IVPUSH 25 mcg Q3H PRN Administration Pain, Moderate (Pain Scale 4-6 Heparin Sodium (Porcine) 5,000 unit 12/13/20 17:30 12/16/20 08:44 Heparin Sodium,Porcine 5,000 Unit/Ml Vial SUBCUT 5,000 unit Q8H GERTRUDIS Administration Nicotine 21 mg 12/12/20 09:00 12/16/20 07:22 Nicotine 21 Mg Patch.Td24 TRANSDERMA 21 mg DAILY GERTRUDIS Administration Omeprazole 40 mg 12/14/20 16:30 12/16/20 07:22 Omeprazole 40 Mg Capsule.Dr MARIN 40 mg BID@[id number],[id number] GERTRUDIS Administration Ondansetron HCl 4 mg 12/11/20 16:46 Ondansetron Hcl 4 Mg/2 Ml Vial IVPUSH Q8H PRN Nausea and Vomiting Sodium Chloride 3 ml 12/12/20 00:00 12/16/20 07:23 0.9 % Sodium Chloride Flush 3 Ml Syringe IVFLUSH 3 ml QSHIFT GERTRUDIS Administration Time Spent With Patient Time: Total time spent is greater than 50% in coordination of care (as documented) at patient's floor/unit and/or counseling patient: Time with patient: 25 - 35 minutes Procedures Date of Service Date of Service: 12/16/20 Quality Stroke Does the patient have a stroke diagnosis?: No VTE Prior VTE?: No VTE Risk Level:: Medical - moderate - high VTE Device Contraindication: N/A - Device Ordered VTE Drug Contraindication: Treatment Not Indicated (gi bleed)
--- NOTE | 2020-12-16 11:56 | PM.IMPN ---
Subjective Subjective Date of Service: 12/16/20 Interval History: Follow up AKA doing well Sharp pain on and off to left aka site Physical Exam Vital Signs: Vital Signs: Last Vital Signs Temp 99.5 F 12/16/20 08:00 Pulse 82 12/16/20 08:10 Resp 25 H 12/16/20 08:00 BP 144/86 H 12/16/20 08:00 Pulse Ox 94 12/16/20 08:00 Oxygen Flow Rate 1 12/15/20 13:06 Body Mass Index 17.3 Appearing in no acute distress lung sounds are clear to auscultation heart regular rate rhythm, clear S1, S2 positive bowel sounds, abdomen is soft, nontender neuro patient is alert x3, no focal deficits Left AKA, surgical dressing intact, incision at visualized right lower extremity with +2 to 3 pedal edema, positive pedal pulse Objective Data Current Medications Generic Name Dose Route Start Last Admin Trade Name Freq PRN Reason Stop Dose Admin Acetaminophen 650 mg 12/11/20 16:46 12/16/20 10:49 Acetaminophen 325 Mg Tablet PO 650 mg Q6H PRN Administration Pain, Mild (Pain Scale 1-3) Acetaminophen 650 mg 12/13/20 12:39 Acetaminophen 325 Mg Tablet PO ONCE PRN Pain, Mild (Pain Scale 1-3) Albuterol Sulfate 2.5 mg 12/11/20 20:00 12/16/20 08:10 Albuterol Sulfate (0.083%) 2.5 Mg/3 Ml Vial.Neb INHALE 2.5 mg RQ4H WHILE AWAKE GERTRUDIS Administration Fentanyl 25 mcg 12/14/20 10:44 12/15/20 02:34 Fentanyl Citrate/Pf 100 Mcg/2 Ml Vial IVPUSH 25 mcg Q3H PRN Administration Pain, Moderate (Pain Scale 4-6 Heparin Sodium (Porcine) 5,000 unit 12/13/20 17:30 12/16/20 08:44 Heparin Sodium,Porcine 5,000 Unit/Ml Vial SUBCUT 5,000 unit Q8H GERTRUDIS Administration Nicotine 21 mg 12/12/20 09:00 12/16/20 07:22 Nicotine 21 Mg Patch.Td24 TRANSDERMA 21 mg DAILY GERTRUDIS Administration Omeprazole 40 mg 12/14/20 16:30 12/16/20 07:22 Omeprazole 40 Mg Capsule. PO 40 mg BID@0630,1630 GERTRUDIS Administration Ondansetron HCl 4 mg 12/11/20 16:46 Ondansetron Hcl 4 Mg/2 Ml Vial IVPUSH Q8H PRN Nausea and Vomiting Sodium Chloride 3 ml 12/12/20 00:00 12/16/20 07:23 0.9 % Sodium Chloride Flush 3 Ml Syringe IVFLUSH 3 ml QSHIFT GERTRUDIS Administration Labs CBC & Chem 7: 12/15/20 05:24 12/15/20 05:24 Progress Note: A&P (1) Critical ischemia of lower extremity: Status: Acute Assessment and Plan: 65-year-old man, who is being admitted with what appears to be ischemic left limb with multiple areas of occlusion and stenosis to the left lower extremity. status post left azmpu-kql-sarg amputation on December 13. He was very difficult to extubate therefore he was transferred to the ICU for further monitoring. He was extubated this morning in the ICU and transferred to the intermediate care floor. Ischemic limb. Status post left gagnf-rzc-wkav amputation - vascular surgery following - physical therapy evaluation, will likely need short-term rehab - pain management - PT consult, discharge planning Anemia. Initially patient had GI bleed, packed red blood cells transfused H&H improved EGD showed ulcerative and erosive gastroduodenitis, esophagitis, Nj's esophagus, nonreactive for H pylori continued with high-dose PPI low H&H, 1 unit of PRBCs transferred in the ICU on 12/14, multifactorial as patient is postoperative - continue PPI - HH better today - follow for any overt bleeding Subtherapeutic INR. - Follow PT INR Leukocytosis. improving. No infection noted, likely reactive to ischemia. Follow closely. Elevated troponin. No complaints of chest pain, no acute abnormalities to EKG. We will trend and monitor on telemetry. Elevated blood pressure reading. Improved, now on the lower side . -Monitor DISPO: Lives with his parents, will need STR when medically stable Deep vein thrombosis prophylaxis with heparin Attending: Dr. Giraldo Full code. Quality Stroke Does the patient have a stroke diagnosis?: No VTE Prior VTE?: No VTE Risk Level:: Medical - moderate - high VTE Device Contraindication: N/A - Device Ordered VTE Drug Contraindication: Treatment Not Indicated (gi bleed)
--- NOTE | 2020-12-16 14:43 | MHC.CM.PN ---
Met with pt to discuss d/c planning: Pt resides with mother, does not drive and has limited transportation options. He was totally independent prior to admission. He states he does not have a PCP and can't remember whom he last saw or when. Discussed STR for post BKA care: pt receptive to rehab: states his mother told him to try [facility] ([facility]) . Referrals made. Pt states he does not have a HCP and is reluctant to list his mother d/t her advanced age. I'll think about it CM to follow for finalization of d/c plans
[2020-12-17] MEDS: 0.9 % Sodium Chloride Flush 3 ML SYRINGE IVFLUSH ×3 (00:21→16:27)
[2020-12-17] MEDS: Heparin Sodium,Porcine 5,000 UNIT/ML VIAL 5000 UNIT SUBCUT ×3 (00:21→16:27)
[2020-12-17 03:44] VITALS: BP 160/94; PULSE 86; RESP 20; TEMP 36.7; O2SAT 93
[2020-12-17] MEDS: Acetaminophen 325 MG TABLET 650 MG PO (05:17)
[2020-12-17] MEDS: Omeprazole 40 MG CAPSULE.DR PO ×2 (05:18→16:26)
[2020-12-17 06:49] LABS: Hemoglobin 10.9 g/dl (14.0-18.0); Mean Corpuscular HGB Conc 29.5 g/dl (31.0-36.0); Mean Corpuscular Hemoglobin 24.6 pg (27.0-33.0); Mean Corpuscular Volume 83.5 fL (80-98); Mean Platelet Volume 9.8 fL (9.4-12.4); Platelet Count 358 X10*3/uL (160-400); Red Blood Count 4.43 X10*6/uL (4.60-5.80); Red Cell Distribution Width 23.9 % (11.0-16.0); White Blood Count 8.1 X10*3/uL (4.8-10.8)
[2020-12-17 07:16] LABS: Anion Gap 14 (12-20); Blood Urea Nitrogen 10 mg/dL (9-16); Carbon Dioxide 27 mmol/L (22-29); Chloride 102 mmol/L (96-108); Creatinine Clr Calc Pharmacy 91.8; Estimated Glomerular Filt Rate > 60; Glucose Random 97 mg/dL (60-115); Potassium 4.9 mmol/L (3.3-5.1); Sodium 138 mmol/L (135-145)
[2020-12-17 08:00] VITALS: BP 149/81; PULSE 87; RESP 20; TEMP 36.7; O2SAT 94
[2020-12-17] MEDS: Nicotine 21 MG PATCH.TD24 TRANSDERMA (09:02)
[2020-12-17 09:36] VITALS: BP 149/81; PULSE 87; O2SAT 94
--- NOTE | 2020-12-17 11:28 | PM.IMPN ---
Subjective Subjective Date of Service: 12/17/20 Interval History: Follow up AKA doing well Sharp pain on and off to left aka site Physical Exam Vital Signs: Vital Signs: Last Vital Signs Temp 98.0 F 12/17/20 08:00 Pulse 87 12/17/20 09:36 Resp 20 12/17/20 08:00 BP 149/81 H 12/17/20 09:36 Pulse Ox 94 12/17/20 09:36 Oxygen Flow Rate 1 12/15/20 13:06 Body Mass Index 17.3 Appearing in no acute distress lung sounds are clear to auscultation heart regular rate rhythm, clear S1, S2 positive bowel sounds, abdomen is soft, nontender neuro patient is alert x3, no focal deficits Objective Data Current Medications Generic Name Dose Route Start Last Admin Trade Name Freq PRN Reason Stop Dose Admin Acetaminophen 650 mg 12/11/20 16:46 12/17/20 05:17 Acetaminophen 325 Mg Tablet PO 650 mg Q6H PRN Administration Pain, Mild (Pain Scale 1-3) Acetaminophen 650 mg 12/13/20 12:39 Acetaminophen 325 Mg Tablet PO ONCE PRN Pain, Mild (Pain Scale 1-3) Albuterol Sulfate 2.5 mg 12/11/20 20:00 12/17/20 11:15 Albuterol Sulfate (0.083%) 2.5 Mg/3 Ml Vial.Neb INHALE Not Given RQ4H WHILE AWAKE GERTRUDIS Fentanyl 25 mcg 12/14/20 10:44 12/15/20 02:34 Fentanyl Citrate/Pf 100 Mcg/2 Ml Vial IVPUSH 25 mcg Q3H PRN Administration Pain, Moderate (Pain Scale 4-6 Heparin Sodium (Porcine) 5,000 unit 12/13/20 17:30 12/17/20 09:02 Heparin Sodium,Porcine 5,000 Unit/Ml Vial SUBCUT 5,000 unit Q8H GERTRUDIS Administration Nicotine 21 mg 12/12/20 09:00 12/17/20 09:02 Nicotine 21 Mg Patch.Td24 TRANSDERMA 21 mg DAILY GERTRUDIS Administration Omeprazole 40 mg 12/14/20 16:30 12/17/20 05:18 Omeprazole 40 Mg Capsule. PO 40 mg BID@0630,1630 GERTRUDIS Administration Ondansetron HCl 4 mg 12/11/20 16:46 Ondansetron Hcl 4 Mg/2 Ml Vial IVPUSH Q8H PRN Nausea and Vomiting Sodium Chloride 3 ml 12/12/20 00:00 12/17/20 09:02 0.9 % Sodium Chloride Flush 3 Ml Syringe IVFLUSH 3 ml QSHIFT GERTRUDIS Administration Labs CBC & Chem 7: 12/17/20 06:01 12/17/20 06:02 Labs: Laboratory Results - last 24 hr 12/17/20 12/17/20 06:01 06:02 MCV 83.5 MCH 24.6 L MCHC 29.5 L RDW 23.9 H Plt Count 358 MPV 9.8 Absolute Nucleated RBC 0.000 Nucleated RBC % (auto) 0.0 Anion Gap 14 Estim Creat Clear Calc 91.8 Estimated GFR > 60 Random Glucose 97 Calcium 8.0 L Progress Note: A&P (1) Critical ischemia of lower extremity: Status: Acute Assessment and Plan: 65-year-old man, who is being admitted with what appears to be ischemic left limb with multiple areas of occlusion and stenosis to the left lower extremity. status post left ulkyz-hbx-yjzk amputation on December 13. He was very difficult to extubate therefore he was transferred to the ICU for further monitoring. He was extubated this morning in the ICU and transferred to the intermediate care floor. Ischemic limb. Status post left mnhaw-rgs-cxrx amputation - physical therapy evaluation, acute rehab - pain management - PT consult, discharge planning Anemia. Initially patient had GI bleed, packed red blood cells transfused H&H improved EGD showed ulcerative and erosive gastroduodenitis, esophagitis, Nj's esophagus, nonreactive for H pylori continued with high-dose PPI low H&H, 1 unit of PRBCs transferred in the ICU on 12/14, multifactorial as patient is postoperative - continue PPI - HH better today - follow for any overt bleeding Subtherapeutic INR. - Follow PT INR Leukocytosis. improving. No infection noted, likely reactive to ischemia. Follow closely. Elevated troponin. No complaints of chest pain, no acute abnormalities to EKG. We will trend and monitor on telemetry. Elevated blood pressure reading. Improved, now on the lower side . -Monitor DISPO: Lives with his parents, will need STR when medically stable Deep vein thrombosis prophylaxis with heparin Attending: Dr. Giraldo Full code. Quality Stroke Does the patient have a stroke diagnosis?: No VTE Prior VTE?: No VTE Risk Level:: Medical - moderate - high VTE Device Contraindication: N/A - Device Ordered VTE Drug Contraindication: Treatment Not Indicated (gi bleed)
--- NOTE | 2020-12-17 11:36 | P.DS_ITS ---
DS: Providers Provider Date of Service: 12/17/20 <Toshia Cruz NP - Last Filed: 12/17/20 14:52> Date of admission: 12/11/20 16:46 <Toshia Cruz NP - Last Filed: 12/17/20 14:52> Date of discharge: 12/17/20 <Toshia Cruz NP - Last Filed: 12/17/20 14:52> Primary care physician: Amari Carrillo MD <Toshia Cruz NP - Last Filed: 12/17/20 14:52> Admitting clinician: Toshia Cruz <Toshia Cruz NP - Last Filed: 12/17/20 14:52> Attending physician on admission: Jasiel Braden <Toshia Cruz NP - Last Filed: 12/17/20 14:52> Consults: 12/11/20 16:48 Consult to Vascular Surgery Routine Consulting Provider: Aleksander Pollock Reason for consultation: ischemic limb Has provider been notified: No 12/11/20 16:51 Consult to Gastroenterology Routine Consulting Provider: Carmen Magallanes Reason for consultation: gi bleed, anemia Has provider been notified: No 12/12/20 08:32 Consult to Cardiology Routine Consulting Provider: Arjun Dickinson Reason for consultation: elevated trops; preop eval Has provider been notified: No <Toshia Cruz NP - Last Filed: 12/17/20 14:52> Attending physician on discharge: Venancio Giraldo <Toshia Cruz NP - Last Filed: 12/17/20 14:52> Discharging clinician: Toshia Cruz <Toshia Cruz NP - Last Filed: 12/17/20 14:52> DS: Diagnosis Discharge Diagnosis (1) Critical ischemia of lower extremity: Status: Acute <Toshia Cruz NP - Last Filed: 12/17/20 14:52> DS: Medications Discharge Medications Home Medications: Previous Rx's Medication Instructions Recorded nicotine 21 mg TRANSDERMAL DAILY #28 ea 12/17/20 <Toshia Cruz NP - Last Filed: 12/17/20 14:52> DS: Summary Hospital Course Hospital Course: HP as per admitting provider 65-year-old man with no significant medical history, presenting to the ER with bilateral leg swelling and pain mostly to his left leg. The patient lives with his elderly mother and apparently last year when he contracted the COVID around August, he seemed to develop a depression and had not been wanting to leave the house and has been housebound most of the year except for occasional outings with his mother to [place] to get cigarettes. He reports that he has not seen a doctor in more than 5 years and does not take any medication at home. He does smoke a half a pack to a pack of cigarettes a day. He denies any alcohol use. He denies any assistive devices for ambulation. He had noticed increased swelling to both legs, more to the right and the left leg had increased pain and discoloration, both feet felt very cold. He also reported black stools over the last several days with no nausea or vomiting. In the ER, he had a CT angio of the abdomen/aorta, which showed multiple areas of occlusion and stenosis to the left lower extremity. He was also noted to be anemic with hemoglobin of 6.0, h ematocrit of 21.9, normal platelet count, INR 2.1. He also had an elevated troponin initially of 94.1, however, he denied any chest pain, and there was no acute ST-wave abnormalities on EKG. His vital signs were stable, although one point, he was mildly tachycardic at 101. He did receive IV Protonix and albuterol while in the ER. He will be admitted for further management and treatment of ischemic limb . Critical limb ischemia status post left above the knee amputation. History of heavy smoking. Had not left the house much last year and more recently had been in bed. 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 he was transferred to the ICU postoperatively as they had a difficult time extubating him but was extubated approximately 24 hours after that and since then his inpatient course has been going well he actually has not needed any pain medication at all and has not complained of any pain. His plan is to at some point returned back to his parent's home. He will be transferred to acute rehabilitation at this time. Anemia. Black stools on admission, received 2 units of packed red blood cells, IV protonix. EGD showed ulcerative and erosive gastroduodenitis. Continue Prilosec as outpatient. Smoker. Smoking cessation encouraged. Continue nicotine replacement. Attending Attestation: Patient seen and examined independently and I was present during gusman portion of E/M service. Agree with Karthikeyan Cruz NP's history, physical, assessment, and plan. <Toshia Cruz NP - Last Filed: 12/17/20 14:52> Time Spent with Patient Time attestation: Total time spent providing and/or coordinating discharge services: <Toshia Cruz NP - Last Filed: 12/17/20 14:52> Discharge coordination time: Greater than 30 minutes <Toshia Cruz NP - Last Filed: 12/17/20 14:52> Quality: Stroke Does the patient have a stroke diagnosis?: No <Toshia Cruz NP - Last Filed: 12/17/20 14:52> Physical Exam Vital Signs: Vital Signs: Last Vital Signs Temp 98.0 F 12/17/20 08:00 Pulse 87 12/17/20 09:36 Resp 20 12/17/20 08:00 BP 149/81 H 12/17/20 09:36 Pulse Ox 94 12/17/20 09:36 Oxygen Flow Rate 1 12/15/20 13:06 Body Mass Index 17.3 <Toshia Cruz NP - Last Filed: 12/17/20 14:52> Appearing in no acute distress head is normocephalic atraumatic eyes pupils are PERRLA sclera is anicteric mouth throat mucous membranes are intact and moist neck is supple no lymphadenopathy, no JVD noted lung sounds are clear to auscultation heart regular rate rhythm, clear S1, S2 positive bowel sounds, abdomen is soft, nontender neuro patient is alert x3, no focal deficits Left AKA, surgical dressing intact <Toshia Cruz NP - Last Filed: 12/17/20 14:52> DS: Data Data Completed and Pending Completed studies during hospitalization [Text1]: Pending at discharge 12/12/20 14:14 Surgical [PTH] Routine 12/13/20 13:17 Surgical [PTH] Routine <Toshia Cruz NP - Last Filed: 12/17/20 14:52> Labs on day of discharge: Laboratory Results - last 24 hr 12/17/20 12/17/20 06:01 06:02 WBC 8.1 RBC 4.43 L D Hgb 10.9 L Hct 37.0 L D MCV 83.5 MCH 24.6 L MCHC 29.5 L RDW 23.9 H Plt Count 358 MPV 9.8 Absolute Nucleated RBC 0.000 Nucleated RBC % (auto) 0.0 Sodium 138 Potassium 4.9 Chloride 102 Carbon Dioxide 27 Anion Gap 14 BUN 10 Creatinine 0.62 Estim Creat Clear Calc 91.8 Estimated GFR > 60 Random Glucose 97 Calcium 8.0 L <Toshia Cruz NP - Last Filed: 12/17/20 14:52> Discharge Plan Discharge Anticipated Discharge Date/Time: 12/17/20 11:29 <Toshia Cruz NP - Last Filed: 12/17/20 14:52> Patient Disposition: Xfer Inpatient Rehab Fac <Toshia Cruz NP - Last Filed: 12/17/20 14:52> Discharge Diagnosis: left ztxyw-rkj-ermd amputation critical limb ischemia anemia <Toshia Cruz NP - Last Filed: 12/17/20 14:52> left lxwmz-psw-hbqy amputation critical limb ischemia anemia <Venancio Giraldo MD - Last Filed: 12/18/20 09:19> Referrals: [facility] [Outside] - 1 Week Aleksander Pollock MD [Physician] - 1 Week Po,Amari Wallace MD [Primary Care Provider] - 1 Week <Toshia Cruz NP - Last Filed: 12/17/20 14:52> Discharge Medications: New nicotine 21 mg/24 hr Patch 24 Hour 21 mg transdermal DAILY Qty: 28 RF: 0 omeprazole 40 mg Capsule,Delayed Release(Dr/Ec) 40 mg PO BID@0630,1630 Qty: 30 RF: 0 <Toshia Cruz NP - Last Filed: 12/17/20 14:52> Discharge Orders: Discharge Order (Routine); Ordered 12/17/20 Ordered By: Toshia Cruz <Toshia Cruz NP - Last Filed: 12/17/20 14:52> Diet: advance to usual diet <Toshia Cruz NP - Last Filed: 12/17/20 14:52> advance to usual diet <Venancio Giraldo MD - Last Filed: 12/18/20 09:19> Activity on Discharge: As tolerated <Toshia Cruz NP - Last Filed: 12/17/20 14:52> As tolerated <Venancio Giraldo MD - Last Filed: 12/18/20 09:19> Stand Alone Forms: Patient Portal Discharge page <Toshia Cruz NP - Last Filed: 12/17/20 14:52> Care Plan Goals: rehabilitation and occupational therapy to help assist in movement in daily activities after amputation <Toshia Cruz NP - Last Filed: 12/17/20 14:52> Health Concerns: left kasia-veq-ealq amputation critical limb ischemia anemia <Toshia Cruz NP - Last Filed: 12/17/20 14:52> Plan of Treatment: follow-up with primary care provider after discharge follow-up with vascular surgeon as needed <Toshia Cruz NP - Last Filed: 12/17/20 14:52> Assessment: see discharge summary <Toshia Cruz NP - Last Filed: 12/17/20 14:52> Discharge Date/Time: 12/17/20 17:56 <Toshia Cruz NP - Last Filed: 12/17/20 14:52>
[2020-12-17 11:52] VITALS: BP 146/74; PULSE 89; RESP 20; TEMP 36.1; O2SAT 94
[2020-12-17 11:55] VITALS: BP 143/66; PULSE 79; RESP 20; TEMP 36.2; O2SAT 94
--- NOTE | 2020-12-17 13:58 | MHC.CM.PN ---
PT is recommending Acute Rehab. CM met with Patient earlier in the day regarding his acceptance at [facility](bed not available today) and Patient was agreeable to this dc plan.CM just met with Patient and his Mother and fist choice has changed to [facility]. CM will continue to follow/awaiting a bed at [facility], likely tomorrow.
--- NOTE | 2020-12-17 15:04 | MHC.CM.PN ---
Patient has been medically cleared for dc to Acute Rehab today. Patient's first choice facility- [facility] has a bed for Patient today and he will dc there today at 5:30 PM, via [facility].Second IMM addressed with Patient and the original has been given to him and a copy has been placed on the chart. CM has left a detailed message for Patient's Mother/Joan at [phone] (at [facility]'s request), informing her of the dc plan.
[2020-12-17 15:54] VITALS: BP 143/66; PULSE 79; RESP 19; TEMP 36.2; O2SAT 94
[2020-12-17 16:09] LABS: COVID-19 Test Negative (Negative); IDNOW Serial# 9DD0AD1C
== END 2020-12-17 17:56 | DRG 239 ==
LOC: HO.ED 14:06 → HO.EDOVER 16:51 → HO.IMC 17:41 → HO.ICU 12-13 15:14 → HO.IMC 12-14 11:18 → HO.ICU 12-14 11:50 → HO.IMC 12-16 23:04
PROVIDERS: Internal Medicine Gastroenterology; Internal Medicine Pulmonary Disease; Physician Assistant Medical; Surgery Vascular Surgery; Admitting Provider Nurse Practitioner Acute Care; Emergency Provider Emergency Medicine; PCP Internal Medicine; Visit Provider Family Medicine
PROC: 0DJ08ZZ Inspection of Upper Intestinal Tract, Via Natural or Artificial Opening Endoscopic (ICD-10-PCS; CPT 43235; principal; 2020-12-12 14:50)
PROC: 0Y6D0Z2 Detachment at Left Upper Leg, Mid, Open Approach (ICD-10-PCS; CPT 27880; principal; 2020-12-13 12:30)
DX: I70.222 Atherosclerosis of native arteries of extremities with rest pain, left leg (principal); K25.4 Chronic or unspecified gastric ulcer with hemorrhage; E43 Unspecified severe protein-calorie malnutrition; K29.91 Gastroduodenitis, unspecified, with bleeding; K26.4 Chronic or unspecified duodenal ulcer with hemorrhage; D62 Acute posthemorrhagic anemia; Z68.1 Body mass index [BMI] 19.9 or less, adult; R79.1 Abnormal coagulation profile; F17.210 Nicotine dependence, cigarettes, uncomplicated; D72.829 Elevated white blood cell count, unspecified; F10.21 Alcohol dependence, in remission; R79.89 Other specified abnormal findings of blood chemistry; Z71.6 Tobacco abuse counseling; Z20.822 Contact with and (suspected) exposure to COVID-19; K44.9 Diaphragmatic hernia without obstruction or gangrene; K22.70 Barrett's esophagus without dysplasia; Z86.16 Personal history of COVID-19; Z79.891 Long term (current) use of opiate analgesic; Z79.899 Other long term (current) drug therapy
CPT/HCPCS: 0241U; 36415; 71045; 75635; 80048; 80053; 80076; 82040; 83036; 83540; 83735; 84100; 84443; 84484; 85014; 85018; 85025; 85027; 85610; 85730; 86850; 86900; 86901; 86923; 87635; 88305; 88307; 88311; 88342; 93005; 93306; 94002; 94003; 94640; 97116; 97163; 97166; 97530; 99285; J0330; J0690; J1100; J1170; J2250; J2370; J2405; J3010; P9016; P9047; Q9967

== ENCOUNTER → 2021-01-16 14:06 | Outpatient (BNVA) | payer MEDICARE, SELFPAY | PROVIDERS: PCP Internal Medicine; Visit Provider Surgery Vascular Surgery | DX: Z47.81 Encounter for orthopedic aftercare following surgical amputation (principal); Z89.612 Acquired absence of left leg above knee | CPT/HCPCS: 99212 ==

== ENCOUNTER → 2021-02-13 10:04 | Outpatient (BNVA) | payer MEDICARE, SELFPAY | PROVIDERS: PCP Internal Medicine; Visit Provider Surgery Vascular Surgery | DX: Z47.81 Encounter for orthopedic aftercare following surgical amputation (principal); Z89.612 Acquired absence of left leg above knee | CPT/HCPCS: 99212 ==

== ENCOUNTER → 2021-06-03 10:04 | Outpatient (BNVA) | payer MEDICARE, SELFPAY | PROVIDERS: PCP Internal Medicine; Visit Provider Surgery Vascular Surgery | DX: Z13.89 Encounter for screening for other disorder (principal) | CPT/HCPCS: 99212 ==

== ENCOUNTER 2021-06-03 11:01 | Inpatient (IN) | payer MEDICARE, SELFPAY ==
--- NOTE | ~2021-06-03 | XR_ITS ---
EXAMINATION: XR CHEST CLINICAL INFORMATION: Preop evaluation COMPARISON: December 11, 2020 TECHNIQUE: 2 views of the chest were obtained. FINDINGS: There is hyperinflation of the lungs without evidence of acute parenchymal disease. No pneumothorax or pleural effusion. Heart normal size. No evidence of pulmonary edema. XR/XR chest 2V IMPRESSION: No acute disease.
--- NOTE | ~2021-06-03 | XR_ITS ---
EXAMINATION: XR FOOT, RIGHT CLINICAL INFORMATION: Gangrenous toes. COMPARISON: Radiographs right foot 02/18/2017. TECHNIQUE: The right foot is imaged in 3 views. FINDINGS: There is generalized osteopenia. There is no focal bony destructive process. No visible fracture or dislocation. There is diffuse swelling of the foot. Suspect some foci of early gas formation in the distal foot soft tissues versus artifact from overlying dressing. There is no definite gas seen tracking in the mid or proximal foot or lower leg at this time. If clinically indicated, this could be further assessed with CT. Results called to Dr. Romero emergency Department at 1720 hours.. XR/XR foot RT 2V IMPRESSION: Suspicious for early gas formation and distal foot soft tissues versus artifact from overlying dressing. No definite gas seen tracking in the mid or proximal foot or lower leg at this time. If clinically indicated, soft tissues could be further assessed with CT.
--- NOTE | ~2021-06-03 | NM_ITS ---
Myocardial perfusion study Indication: Preoperative cardiovascular risk stratification Technique: The patient was brought in for a Lexiscan perfusion study on 06/06/2021. Patient performed low-level exercise and was injected 0.4 mg of Lexiscan intravenously. Within a minute of injection, 25 mCi of sestamibi was given intravenously. Images were obtained using the SPECT gamma camera interlaced with the gating device. Images were obtained in supine position. Resting perfusion study was performed on 06/05/2021. Patient was administered 25 mCi of sestamibi intravenously at rest. Images were then obtained in supine position. Images obtained with and without CT attenuation. Total DLP 99 mGy-cm. Images were processed with the software and compared side to side in short axis, horizontal long axis and vertical long axis views. Findings: The stress perfusion study showed non attenuated images show absent uptake in the apical and mid inferolateral and lateral wall of the LV myocardium as well as severely reduced uptake in the wall of the LV corrected images show mildly to moderately the inferior as well as septum as well as absent uptake in the inferoapical and mid lateral and inferolateral lateral and inferolateral wall of the LV myocardium. Is also absent uptake in the inferoapical and inferior wall of the LV myocardium.. The gated study shows reduced LV systolic function with calculated LVEF of 43%. LV cavity is moderately dilated size. The gated study shows reduced wall thickening and contraction of lateral segments. Resting study shows attenuated corrected images show improved uptake in the anterior, septal of the LV myocardium. Persistent absent uptake in the mid lateral and partially reversible defect of apex of the basal lateral wall of the LV myocardium.. Gating at rest was not performed. The findings are consistent with suggestive of ischemia in the LAD and possibly in RCA territory infarct in the circumflex territory.. NM/NM liyah perf SPECT rest & str Impression: 1. Myocardial perfusion imaging study shows multivessel disease with ischemia in LAD disease possibly in RCA territory as well as infarct in the circumflex 2. Gated LVEF is 43% 3. Transient ischemic dilatation not present but LV cavity is dilated EKG is nondiagnostic for ischemia
--- NOTE | ~2021-06-03 | CT_ITS ---
EXAMINATION: CT ANGIOGRAPHY LEGS WITH RUNOFF CLINICAL INFORMATION: Nonhealing right leg ulcer COMPARISON: Right foot x-rays 06/03/2021 and CTA lower extremity runoff 12/11/2020 TECHNIQUE: Axial imaging was performed through the abdomen, pelvis and lower extremities following the administration of 100 mL Omnipaque 350 IV contrast. Reformatted coronal, sagittal and MIP imaging were provided for interpretation. This CT examination was performed using dose optimization techniques as appropriate, variously including the following: *Automated exposure control *Adjustment of mA and/or kV according to patient size (this includes techniques or standardized protocols for targeted exams where dose is matched to indication/reason for exam; i.e. extremities or head) *Use of iterative reconstruction technique DLP: 585 mGy-cm FINDINGS: Vascular findings: Visualized portions of the distal thoracic aorta are normal in caliber and widely patent. There has been interval increase in thrombus burden throughout the abdominal aorta with less than 25% patency of the abdominal aorta with near complete occlusion of the inferior most aspect of the abdominal aorta. The celiac and superior mesenteric arteries are stenotic but patent. Both renal arteries are stenotic but patent. The inferior mesenteric artery is patent. There is complete occlusion of the right common iliac artery in addition to the right internal iliac artery. There is reconstitution of the right external iliac artery. The proximal portion of the right common femoral artery is patent although the distal aspect of the right common femoral artery is completely occluded. The right profundus femoris artery appears patent. The right superficial femoral artery is patent although there is complete occlusion at the junction of the superficial femoral and popliteal arteries. The right popliteal artery is severely diseased but appears patent proximally. There is near complete occlusion of the distal right popliteal artery. There is a patent three-vessel takeoff of the proximal calf, however, all 3 arteries gradually loose contrast enhancement, however, this possibly secondary to bolus timing/4 flow. There is similar chronic occlusion of the left common, internal and external iliac arteries. There is subtle reconstitution of flow within the left common femoral artery although visualized portion of the left superficial femoral artery remains occluded. The left profundus femoris artery is occluded at its takeoff, however, demonstrates recannulization after a few centimeters. Nonvascular findings: Visualized lung bases are well aerated. The liver is mildly enlarged. The gallbladder is unremarkable. The pancreas, spleen and adrenal glands are unremarkable. Symmetrically enhancing kidneys without hydronephrosis. Normal caliber loops of small and large bowel. The bladder is opacified with contrast. Coarse calcifications within a normal-sized prostate gland. Trace free pelvic fluid, nonspecific. Diffuse osteopenia. Severe degenerative changes of the lumbar spine. Similar sclerotic focus of the right posterior ilium, statistically a bone island. Patient is status post [id number] amputation of the left lower extremity. There is diffuse soft tissue edema of the right lower extremity, predominantly involving the calf and foot. CT/CT angio abd aorta runoff IMPRESSION: 1. There has been interval increase in thrombus burden throughout the abdominal aorta with less than 25% patency of the abdominal aorta with near complete occlusion of the inferior most aspect of the abdominal aorta. 2. There is complete occlusion of the right common iliac artery in addition to the right internal iliac artery. There is reconstitution of the right external iliac artery. The proximal portion of the right common femoral artery is patent although the distal aspect of the right common femoral artery is completely occluded. The right superficial femoral artery is patent although there is complete occlusion at the junction of the superficial femoral and popliteal arteries. The right popliteal artery is severely diseased but appears patent proximally. There is near complete occlusion of the distal right popliteal artery. There is a patent three-vessel takeoff of the proximal calf, however, all 3 arteries gradually loose contrast enhancement, however, this is possibly secondary to bolus timing/poor flow. 3. There is similar chronic occlusion of the left common, internal and external iliac arteries. This Critical Result was discussed with Dr. Mariano at 6:40 PM on 06/04/2021 and it was ascertained that the content and urgency of the report was understood at the time of direct communication.
[2021-06-03 11:38] VITALS: BP 140/78; PULSE 66; RESP 18; TEMP 37.1; O2SAT 98; BMI 14.8
[2021-06-03 14:36] LABS: MANUAL DIFF FLAG NO
[2021-06-03 14:43] LABS: Basophils Absolute Auto 0.1 X10*3/uL (0.0-0.2); Basophils Percent Auto 0.7 % (0-2); Eosinophils Absolute Auto 0.1 X10*3/uL (0.0-0.4); Hematocrit 38.5 % (42.0-52.0); Hemoglobin 12.1 g/dl (14.0-18.0); Imm Gran Abs Auto 0.03 X10*3/uL (0.00-0.03); Imm Gran Pct Auto 0.3 % (0.0-0.4); Lymphocytes Absolute Auto 1.4 X10*3/uL (1.2-4.9); Lymphocytes Percent Auto 15.7 % (20-40); Mean Corpuscular HGB Conc 31.4 g/dl (31.0-36.0); Mean Corpuscular Hemoglobin 29.6 pg (27.0-33.0); Mean Corpuscular Volume 94.1 fL (80.0-98.0); Mean Platelet Volume 8.6 fL (9.4-12.4); Monocytes Absolute Auto 0.6 X10*3/uL (0.1-1.2); Monocytes Percent Auto 7.1 % (2-11); Neutrophils Absolute Auto 6.7 x10*3/uL (2.0-8.3); Neutrophils Percent Auto 75.2 % (45-73); Platelet Count 334 X10*3/uL (160-400); Red Blood Count 4.09 X10*6/uL (4.60-5.80); Red Cell Distribution Width 19.8 % (11.0-16.0); White Blood Count 8.9 X10*3/uL (4.8-10.8)
[2021-06-03 14:50] LABS: Anion Gap 13 (12-20); Blood Urea Nitrogen 17 mg/dL (9-16); Calcium 9.2 mg/dL (8.4-10.2); Carbon Dioxide 25 mmol/L (22-29); Chloride 104 mmol/L (96-108); Creatinine Clr Calc Pharmacy 71.5; Estimated Glomerular Filt Rate > 60; Glucose Random 92 mg/dL (60-115); Potassium 4.6 mmol/L (3.3-5.1); Sodium 137 mmol/L (135-145)
--- NOTE | 2021-06-03 15:57 | ED.GENADULT ---
HPI - General Adult General Chief complaint: Wound/Laceration Stated complaint: foot/leg issues Time Seen by Provider: 06/03/21 15:56 Source: patient Mode of arrival: ambulatory Limitations: no limitations History of Present Illness HPI narrative: One month ago patient hurt his foot, now with black toes, patient with claudication and was sent to the ED for ischemia. Onset (ago): day(s) Location: lower extremity Severity: severe Pain Consistency: constant Related Data Home Medications Medication Instructions Recorded Confirmed ferrous sulfate 325 mg (65 mg 325 mg PO DAILY 01/13/21 06/03/21 iron) tablet (FeroSul) gabapentin 100 mg capsule 200 mg PO TID 06/03/21 06/03/21 Previous Rx's Medication Instructions Recorded finasteride 5 mg tablet 5 mg PO BEDTIME #90 tab 01/30/21 oxycodone 5 mg tablet 5 mg PO DAILY #30 tab 05/19/21 Allergies Allergy/AdvReac Type Severity Reaction Status Date / Time No Known Allergies Allergy Verified 06/03/21 10:09 Review of Systems Constitutional: Constitutional: Reports no additional constitutional complaints Eyes: Eyes: Reports no additional eye complaints ENT: Denies dizziness Cardiovascular: Cardiovascular: Reports no additional cardiovascular complaints Respiratory: Respiratory: Reports as per HPI Gastrointestinal: Gastrointestinal: Reports no additional gastrointestinal complaints Musculoskeletal: Musculoskeletal: Reports no additional musculoskeletal complaints Integumentary/Breasts: Skin/Breast: Denies rash Neurologic: Reports system reviewed and no additional complaints, except as documented, Denies dizziness and Denies Sensory deficit (Neuro) Psychiatric: Psychiatric: Denies anxiety [facility] Past Medical History Medical History COVID-19 Left above-knee amputee Peripheral vascular disease Tobacco use disorder Surgical History H/O esophagogastroduodenoscopy History of amputation below knee History of tonsillectomy Family History Family History Mother No problems noted. Father COPD (chronic obstructive pulmonary disease) Social History Social History Household Members: Family Household Members Other:: Mom and dad Housing: House Alcohol intake: former Patient Tobacco Use Status: Current everyday Tobacco user Tobacco use type: Cigarette Cigarettes Per Day: 8 Advance Directives: No Advance Directives Information Provided: Yes service: No Current occupational status: disabled Physical Exam Vital Signs: Vital Signs: Last Vital Signs Temp 98.5 F 06/03/21 16:34 Pulse 84 06/03/21 19:41 Resp 14 06/03/21 19:41 BP 134/74 06/03/21 19:41 Pulse Ox 97 06/03/21 16:34 BMI result Body Mass Index 14.8 Const: Other: thin unkept male Orientation/consciousness: oriented to person and patient oriented x3 Limitations: no limitations HENMT: Head: Yes normal to inspection Ears: external ears normal General nose exam: Normal external nose present Mouth: Normal oral and palatal mucosa present and oropharynx normal Throat: Yes posterior oropharynx normal Eyes: General: appearance normal, both eyes and all related structures Neck: Other: supple Neck: Yes normal visual inspection Chest: Chest palpation & inspection: normal inspection of the chest Resp: Auscultation: clear to auscultation bilaterally Cardio: Jugular venous distension: no JVD Rate: regular rate Rhythm: regular rhythm Heart sounds: S1 normal heart sound present and S2 normal heart sound present GI: Inspection: Yes normal to inspection Palpation (GI): Soft to palpation, nontender and No hepatosplenomegaly present Auscultation: normal bowel sounds : General: Yes no CVA tenderness Back/Spine/Pelvis: Back: no CVA tenderness Skin: General skin exam: no rashes or lesions noted Neuro: General: oriented to person and patient oriented x3 Cranial nerves: Yes CN's II-XII intact bilaterally Motor exam (neuro): 5/5 motor strength present throughout Sensory Exam: No Sensory deficit (Neuro) Extrem: Other: left leg AKA, right leg with edema, gangrenous toes, no palpable pulses Psych: Appearance: grossly normal Course Reevaluation(s) Reevaluation #1: patient was actually seen 06/03/21 at 4pm Time: 16:34 Reevaluation #2: discussed with Dr. Pollock who will do an angiogram tomorrow Time: 16:42 Medical Decision Making Lab Data Result diagrams: 06/03/21 14:32 06/03/21 14:32 Labs: Lab Results 06/03/21 06/03/21 06/03/21 Range/Units 14:32 14:32 16:46 WBC 8.9 (4.8-10.8) X10*3/uL RBC 4.09 L (4.60-5.80) X10*6/uL Hgb 12.1 L (14.0-18.0) g/dl Hct 38.5 L (42.0-52.0) % MCV 94.1 (80.0-98.0) fL MCH 29.6 (27.0-33.0) pg MCHC 31.4 (31.0-36.0) g/dl RDW 19.8 H (11.0-16.0) % Plt Count 334 (160-400) X10*3/uL MPV 8.6 L (9.4-12.4) fL Immature Gran % (Auto) 0.3 (0.0-0.4) % Neut % (Auto) 75.2 H (45-73) % Lymph % (Auto) 15.7 L (20-40) % Sanborn % (Auto) 7.1 (2-11) % Eos % (Auto) 1.0 (0-4) % Baso % (Auto) 0.7 (0-2) % Lymph # (Auto) 1.4 (1.2-4.9) X10*3/uL Sanborn # (Auto) 0.6 (0.1-1.2) X10*3/uL Eos # (Auto) 0.1 (0.0-0.4) X10*3/uL Baso # (Auto) 0.1 (0.0-0.2) X10*3/uL Abs Immat Gran (auto) 0.03 (0.00-0.03) X10*3/uL Absolute Neuts (auto) 6.7 (2.0-8.3) x10*3/uL Absolute Nucleated RBC 0.000 (0.0-0.012) X10*3/uL Nucleated RBC % (auto) 0.0 (0.0-0.2) /100WBC ESR 14 (0-15) MM/HR Sodium 137 (135-145) mmol/L Potassium 4.6 (3.3-5.1) mmol/L Chloride 104 (96-108) mmol/L Carbon Dioxide 25 (22-29) mmol/L Anion Gap 13 (12-20) BUN 17 H (9-16) mg/dL Creatinine 0.66 (0.5-1.4) mg/dL Estim Creat Clear Calc 71.5 Estimated GFR > 60 Random Glucose 92 (60-115) mg/dL Calcium 9.2 D (8.4-10.2) mg/dL C-Reactive Protein (< or = 0.50) mg/dL COVID-19 (RENEE) (Negative) COVID-19 Clin Com 06/03/21 06/03/21 Range/Units 16:46 16:49 WBC (4.8-10.8) X10*3/uL RBC (4.60-5.80) X10*6/uL Hgb (14.0-18.0) g/dl Hct (42.0-52.0) % MCV (80.0-98.0) fL MCH (27.0-33.0) pg MCHC (31.0-36.0) g/dl RDW (11.0-16.0) % Plt Count (160-400) X10*3/uL MPV (9.4-12.4) fL Immature Gran % (Auto) (0.0-0.4) % Neut % (Auto) (45-73) % Lymph % (Auto) (20-40) % Sanborn % (Auto) (2-11) % Eos % (Auto) (0-4) % Baso % (Auto) (0-2) % Lymph # (Auto) (1.2-4.9) X10*3/uL Sanborn # (Auto) (0.1-1.2) X10*3/uL Eos # (Auto) (0.0-0.4) X10*3/uL Baso # (Auto) (0.0-0.2) X10*3/uL Abs Immat Gran (auto) (0.00-0.03) X10*3/uL Absolute Neuts (auto) (2.0-8.3) x10*3/uL Absolute Nucleated RBC (0.0-0.012) X10*3/uL Nucleated RBC % (auto) (0.0-0.2) /100WBC ESR (0-15) MM/HR Sodium (135-145) mmol/L Potassium (3.3-5.1) mmol/L Chloride (96-108) mmol/L Carbon Dioxide (22-29) mmol/L Anion Gap (12-20) BUN (9-16) mg/dL Creatinine (0.5-1.4) mg/dL Estim Creat Clear Calc Estimated GFR Random Glucose (60-115) mg/dL Calcium (8.4-10.2) mg/dL C-Reactive Protein 1.53 H (< or = 0.50) mg/dL COVID-19 (RENEE) Negative (Negative) COVID-19 Clin Com See Note Discharge Plan Discharge Clinical Impression: Peripheral vascular disease, Gangrene Patient Disposition: Admitted As Inpatient
[2021-06-03 16:34] VITALS: BP 144/76; PULSE 69; RESP 18; TEMP 36.9; O2SAT 97
[2021-06-03] MEDS: Piperacillin Sodium/Tazobactam 3.375 GM in 0.9 % Sodium Chloride 50 ML IV (17:02)
[2021-06-03 17:06] LABS: C Reactive Protein 1.53 mg/dL (< or = 0.50)
[2021-06-03 17:07] LABS: COVID-19 Test Negative (Negative)
[2021-06-03] MEDS: vancomycin HCL 1,500 MG in 0.9 % Sodium Chloride 500 ML 333.33 MG IV (17:29)
[2021-06-03 17:33] LABS: Erythrocyte Sedimentation Rate 14 MM/HR (0-15)
--- NOTE | 2021-06-03 17:40 | P.HPHOSP_ITS ---
History of Present Illness Date of Service: 06/03/21 <Toshia Cruz NP - Last Filed: 06/03/21 17:56> Attending physician on admission: Bharti Singh <Toshia Cruz NP - Last Filed: 06/03/21 17:56> Chief Complaint: Foot pain <Toshia Cruz NP - Last Filed: 06/03/21 17:56> 65-year-old man presenting with increased pain to his right foot and drainage with eschar noted. He was seen by the vascular surgeon in his office today and was told to come to the ER for further evaluation for angiogram. He has a history of critical limb ischemia to his left leg and he is status post AKA. He has had nonhealing ulcers with cellulitis to the right foot. He complains of increased pain. He reports this started when he hit the foot on his walker and then noticed 2 days ago that he had drainage and his toes were black. He denied fever, chills. He had no elevated white blood cell count or fever. In the ER he was given a dose of vancomycin and Zosyn. He will be admitted for further management and treatment of acute limb ischemia and gangrene. <Toshia Cruz NP - Last Filed: 06/03/21 17:56> Review of Systems Review of Systems: Denies any recent fever chills or decrease in appetite respiratory denies any shortness of breath coverage production cardiovascular Denies chest pain gastrointestinal denies any dysphagia abdominal pain nausea vomiting or diarrhea genitourinary denies any dysuria frequency or hematuria musculoskeletal See hPI neuropsych denies any weakness or seizures all other systems reviewed are negative <Toshia Cruz NP - Last Filed: 06/03/21 17:56> [facility] Medical History: Medical History COVID-19 Left above-knee amputee Peripheral vascular disease Tobacco use disorder <Toshia Cruz NP - Last Filed: 06/03/21 17:56> Family History: Family History Mother No problems noted. Father COPD (chronic obstructive pulmonary disease) <ASAEL Mcgrath Last Filed: 06/03/21 17:56> Surgical History: Surgical History H/O esophagogastroduodenoscopy History of amputation below knee History of tonsillectomy <Toshia Cruz NP - Last Filed: 06/03/21 17:56> Social History: Social History Household Members: Family Household Members Other:: Mom and dad Housing: House Alcohol intake: former Patient Tobacco Use Status: Current everyday Tobacco user Tobacco use type: Cigarette Cigarettes Per Day: 8 Use of substances other than those prescribed or required for medical reasons: No Are you DNR?: No Advance Directives: No Advance Directives Information Provided: Yes Advance Directives on File: No service: No Current occupational status: disabled <Toshia Cruz NP - Last Filed: 06/03/21 17:56> Meds Allergies/Adverse reactions: Allergies Allergy/AdvReac Type Severity Reaction Status Date / Time No Known Allergies Allergy Verified 06/03/21 10:09 <Toshia Cruz NP - Last Filed: 06/03/21 17:56> Active Medications: Current Medications Acetaminophen (Acetaminophen 325 Mg Tablet) 650 mg PO Q6H PRN PRN Reason: Pain, Mild (Pain Scale 1-3) Vancomycin HCl 1,500 mg/ (Sodium Chloride) 500 mls @ 333.333 mls/hr IV ONCE ONE Stop: 06/03/21 18:11 Last Admin: 06/03/21 17:29 Dose: 333.33 mls/hr Documented by: Vancomycin HCl 1,000 mg/ (Sodium Chloride) 270 mls @ 270 mls/hr IV Q12H GERTRUDIS Morphine Sulfate (Morphine Sulfate 4 Mg/Ml Cartridge) 2 mg IVPUSH Q4H PRN; Protocol PRN Reason: Pain, Severe (Pain Scale 7-10) Ondansetron HCl (Ondansetron Hcl 4 Mg/2 Ml Vial) 4 mg IVPUSH Q8H PRN PRN Reason: Nausea and Vomiting Oxycodone HCl (Oxycodone Hcl Immed Release 5 Mg Tablet) 5 mg PO Q6H PRN PRN Reason: Pain, Severe (Pain Scale 7-10) Pharmacy Consult (Consult Rx Perform Med Rec) 1 each MISCELLANE ONCE PRN PRN Reason: Consult order Pharmacy Consult (Consult Rx Vancomycin Dosing) 1 each MISCELLANE DAILY PRN PRN Reason: Consult order Sodium Chloride (0.9 % Sodium Chloride Flush 3 Ml Syringe) 3 ml IVFLUSH QSHIFT GERTRUDIS <Toshia Cruz NP - Last Filed: 06/03/21 17:56> Home medications: Home Medications Medication Instructions Recorded Confirmed Last Taken Type ferrous sulfate 325 mg (65 mg 325 mg PO DAILY 01/13/21 06/03/21 Unknown History iron) tablet (FeroSul) gabapentin 100 mg capsule 200 mg PO TID 06/03/21 06/03/21 06/03/21 History <Toshia Cruz NP - Last Filed: 06/03/21 17:56> Physical Exam Vital Signs and Narrative: Vital Signs: Last Vital Signs Temp 98.5 F 06/03/21 16:34 Pulse 69 06/03/21 16:34 Resp 18 06/03/21 16:34 BP 144/76 H 06/03/21 16:34 Pulse Ox 97 06/03/21 16:34 BMI result Body Mass Index 14.8 <Toshia Cruz NP - Last Filed: 06/03/21 17:56> Appearing in no acute distress head is normocephalic atraumatic eyes pupils are PERRLA sclera is anicteric mouth throat mucous membranes are intact and moist neck is supple no lymphadenopathy, no JVD noted lung sounds are clear to auscultation heart regular rate rhythm, clear S1, S2 +2-3 pitting edema to right lower extremity positive bowel sounds, abdomen is soft, nontender neuro patient is alert x3, no focal deficits <Toshia Cruz NP - Last Filed: 06/03/21 17:56> Results Labs CBC and Chem 7: : 06/05/21 05:44 06/05/21 07:03 <Toshia Cruz NP - Last Filed: 06/03/21 17:56> Labs: Laboratory Results - last 24 hr 06/03/21 06/03/21 06/03/21 14:32 14:32 16:46 MCV 94.1 MCH 29.6 MCHC 31.4 RDW 19.8 H Plt Count 334 MPV 8.6 L Immature Gran % (Auto) 0.3 Neut % (Auto) 75.2 H Lymph % (Auto) 15.7 L Gonzales % (Auto) 7.1 Eos % (Auto) 1.0 Baso % (Auto) 0.7 Lymph # (Auto) 1.4 Gonzales # (Auto) 0.6 Eos # (Auto) 0.1 Baso # (Auto) 0.1 Abs Immat Gran (auto) 0.03 Absolute Neuts (auto) 6.7 Absolute Nucleated RBC 0.000 Nucleated RBC % (auto) 0.0 ESR 14 Anion Gap 13 Estim Creat Clear Calc 71.5 Estimated GFR > 60 Random Glucose 92 Calcium 9.2 D C-Reactive Protein COVID-19 (RENEE) COVID-19 Clin Com 06/03/21 06/03/21 16:46 16:49 MCV MCH MCHC RDW Plt Count MPV Immature Gran % (Auto) Neut % (Auto) Lymph % (Auto) Gonzales % (Auto) Eos % (Auto) Baso % (Auto) Lymph # (Auto) Gonzales # (Auto) Eos # (Auto) Baso # (Auto) Abs Immat Gran (auto) Absolute Neuts (auto) Absolute Nucleated RBC Nucleated RBC % (auto) ESR Anion Gap Estim Creat Clear Calc Estimated GFR Random Glucose Calcium C-Reactive Protein 1.53 H COVID-19 (RENEE) Negative COVID-19 Clin Com See Note <Toshia Cruz NP - Last Filed: 06/03/21 17:56> Imaging Radiologist's Impressions: Impressions Foot X-Ray 06/03/21 16:32 IMPRESSION: Suspicious for early gas formation and distal foot soft tissues versus artifact from overlying dressing. No definite gas seen tracking in the mid or proximal foot or lower leg at this time. If clinically indicated, soft tissues could be further assessed with CT. <Toshia Cruz NP - Last Filed: 06/03/21 17:56> Assessment and Plan (1) Gangrene: Status: Acute <Toshia Cruz NP - Last Filed: 06/03/21 17:56> (2) Coagulopathy: Status: Acute <Toshia rCuz NP - Last Filed: 06/03/21 17:56> (3) Peripheral vascular disease: Status: Acute <Toshia Cruz NP - Last Filed: 06/03/21 17:56> 60 old man admitted ischemia. History left critical limb ischemia with AKA in December this year. He was sent Dr. Yoo office to the ER for further workup. Critical limb ischemia. Seen by Dr. Pollock today in his office Appears to be infected as well, will continue vancomycin NPO after midnight for angio Pain management Wound care Gangrene. Foot x-ray shows early gas formation with will likely need amputation Vascular surgery aware Normocytic anemia No signs of bleeding Follow CBC DVT prophylaxis with heparin Attending Full code ? <Toshia Cruz NP - Last Filed: 06/03/21 17:56> Quality Stroke Does the patient have a stroke diagnosis?: No <Toshia Cruz NP - Last Filed: 06/03/21 17:56> VTE Prior VTE?: No <Toshia Cruz NP - Last Filed: 06/03/21 17:56> VTE Risk Level:: Medical - moderate - high <Toshia Cruz NP - Last Filed: 06/03/21 17:56> VTE Device Contraindication: Treatment Not Indicated <Toshia Cruz NP - Last Filed: 06/03/21 17:56> VTE Drug Contraindication: N/A - Med Ordered <Toshia Cruz NP - Last Filed: 06/03/21 17:56>
--- NOTE | 2021-06-03 18:03 | PM.EVENT ---
Event Note Date of Service: 06/04/21 Event Note: Patient came with critical limb ischemia right leg and infection in the right toe area specially in 2nd 3rd and 4th toes, in addition has bluish discoloration of the tips of 1st and 2nd toe. Was seen by vascular- recommended for antibiotic and morning angiogram. This patient is seen and examined with APC. Lab imaging: Normal WBC, no fever BMP also normal. foot xray:IMPRESSION: Suspicious for early gas formation and distal foot soft tissues versus artifact from overlying dressing. No definite gas seen tracking in the mid or proximal foot or lower leg at this time. If clinically indicated, soft tissues could be further assessed with CT Physical exam and assessment and plan coordinated in APCs note, Agree with the plan in addition: Right foot critical limb ischemia/cellulitis: mild elevated CRP, ESR normal started patient IV antibiotics, pain management med reconciliation is still pending vascular and id evaluation. NPO past midnight for possible Angiogram
--- NOTE | 2021-06-03 18:31 | PHA.MEDREC ---
MED REC COMPLETE, NO ISSUES Pharmacy Consult ? Medication Reconciliation Pharmacy has completed the medication reconciliation.
[2021-06-03] MEDS: Heparin Sodium,Porcine 5,000 UNIT/ML VIAL 5000 UNIT SUBCUT (19:02)
[2021-06-03] MEDS: oxyCODONE HCl Immed Release 5 MG TABLET PO (19:07)
[2021-06-03 19:41] VITALS: BP 134/74; PULSE 84; RESP 14
[2021-06-03] MEDS: Ferrous Sulfate 324 MG TABLET.DR PO (20:06)
[2021-06-03] MEDS: Gabapentin 100 MG CAPSULE 200 MG PO (20:18)
--- NOTE | 2021-06-03 20:44 | PC.NURSE ---
Pt remains alert and oriented x4, calm and cooperative. Pt denies pain. Vitals remain stable. Pt urinated 300ml in urinal this shift. Right foot remains open to air. Pt remains NPO. Report given to ROXANE Linder. Pt wheeled to overflow unit in wheel chair without issues by Pepe Mcrae at 2044.
[2021-06-03] MEDS: Finasteride 5 MG TABLET PO (21:04)
[2021-06-04] VITALS (15 sets, daily range): BP systolic 135–172; BP diastolic 71–89; PULSE 65–100; RESP 14–21; TEMP 36.7–38.1; O2SAT 96–98
[2021-06-04] MEDS: Piperacillin Sodium/Tazobactam 3.375 GM in 0.9 % Sodium Chloride 50 ML IV ×4 (00:17→17:47)
--- NOTE | 2021-06-04 06:23 | PC.NURSE ---
Report given to short stay unit RN, pt transported via wc for angio
--- NOTE | 2021-06-04 07:24 | P.CONGS_ITS ---
History of Present Illness Consult details Consult date: 06/04/21 Reason for consult: wound care Narrative: 65-year-old patient well known to me. History of significant peripheral vascular disease. He has undergone left above knee amputation. Due to insurance issues he had failed to follow-up. His mother had requested a follow-up with us and brought him into the office yesterday. It was discovered that he had significant ulceration of the foot which was quite concerning and was sent over to the ER for admission. He now presents to us for vascular evaluation. Review of Systems Review of Systems: Yes all other systems are reviewed and are negative Constitutional: Constitutional: Reports no additional constitutional com plaints ENT: Reports Normal hearing present Cardiovascular: Cardiovascular: Denies chest pain, Denies chest pain at rest, Denies chest pain with activity and Denies pedal edema Respiratory: Respiratory: Denies cough Gastrointestinal: Gastrointestinal: Denies abdominal pain Musculoskeletal: Musculoskeletal: Reports abnormal gait, Reports muscle cramps, Reports muscle weakness and Reports radiating pain into limb Integumentary/Breasts: Skin/Breast: Reports skin ulcer and Reports wounds Neurologic: Reports Normal hearing present and Reports abnormal gait Psychiatric: Psychiatric: Reports no additional psychiatric complaints PMFSH Past Medical History Medical History COVID-19 Left above-knee amputee Peripheral vascular disease Tobacco use disorder Family History Family History Mother No problems noted. Father COPD (chronic obstructive pulmonary disease) Surgical History Surgical History H/O esophagogastroduodenoscopy History of amputation below knee History of tonsillectomy Social History Social History Household Members: Family Household Members Other:: Mom and dad Housing: House Alcohol intake: former Patient Tobacco Use Status: Current everyday Tobacco user Tobacco use type: Cigarette Cigarettes Per Day: 8 Use of substances other than those prescribed or required for medical reasons: No Are you DNR?: No Advance Directives: No Advance Directives Information Provided: Yes Advance Directives on File: No service: No Current occupational status: disabled Meds Allergies Allergy/AdvReac Type Severity Reaction Status Date / Time No Known Allergies Allergy Verified 06/03/21 10:09 Active Medications: Current Medications Acetaminophen (Acetaminophen 325 Mg Tablet) 650 mg PO Q6H PRN PRN Reason: Pain, Mild (Pain Scale 1-3) Ferrous Sulfate (Ferrous Sulfate 324 Mg Tablet.) 324 mg PO DAILY [facility] Last Admin: 06/03/21 20:06 Dose: 324 mg Documented by: Finasteride (Finasteride 5 Mg Tablet) 5 mg PO BEDTIME [facility] Last Admin: 06/03/21 21:04 Dose: 5 mg Documented by: Gabapentin (Gabapentin 100 Mg Capsule) 200 mg PO TID [facility] Last Admin: 06/03/21 20:18 Dose: 200 mg Documented by: Heparin Sodium (Porcine) (Heparin Sodium,Porcine 5,000 Unit/Ml Vial) 5,000 unit SUBCUT Q12H [facility] Last Admin: 06/03/21 19:02 Dose: 5,000 unit Documented by: Vancomycin HCl 500 mg/ Sodium (Chloride) 110 mls @ 110 mls/hr IV Q12H [facility] Piperacillin Sod/Tazobactam (Sod 3.375 gm/ Sodium Chloride) 50 mls @ 100 mls/hr IV Q6H [facility] Last Admin: 06/04/21 05:35 Dose: 100 mls/hr Documented by: Sodium Chloride (Ns) 1,000 mls @ 100 mls/hr IVCONT .Q10H [facility] Morphine Sulfate (Morphine Sulfate 4 Mg/Ml Cartridge) 2 mg IVPUSH Q4H PRN; Protocol PRN Reason: Pain, Severe (Pain Scale 7-10) Ondansetron HCl (Ondansetron Hcl 4 Mg/2 Ml Vial) 4 mg IVPUSH Q8H PRN PRN Reason: Nausea and Vomiting Oxycodone HCl (Oxycodone Hcl Immed Release 5 Mg Tablet) 5 mg PO Q6H PRN PRN Reason: Pain, Severe (Pain Scale 7-10) Oxycodone HCl (Oxycodone Hcl Immed Release 5 Mg Tablet) 5 mg PO DAILY [facility] Last Admin: 06/03/21 19:07 Dose: 5 mg Documented by: Pharmacy Consult (Consult Rx Perform Med Rec) 1 each MISCELLANE ONCE PRN PRN Reason: Consult order Pharmacy Consult (Consult Rx Vancomycin Dosing) 1 each MISCELLANE DAILY PRN PRN Reason: Consult order Sodium Chloride (0.9 % Sodium Chloride Flush 3 Ml Syringe) 3 ml IVFLUSH QSHIFT [facility] Last Admin: 06/04/21 00:18 Dose: Not Given Documented by: Home Medications Medication Instructions Recorded Confirmed Last Taken Type ferrous sulfate 325 mg (65 mg 325 mg PO DAILY 01/13/21 06/03/21 Unknown History iron) tablet (FeroSul) gabapentin 100 mg capsule 200 mg PO TID 06/03/21 06/03/21 06/03/21 History Physical Exam Vital Signs: Vital Signs: Last Vital Signs Temp 98.1 F 06/04/21 06:51 Pulse 100 06/04/21 06:51 Resp 16 06/04/21 06:51 BP 148/74 H 06/04/21 06:51 Pulse Ox 96 06/04/21 06:51 BMI result Body Mass Index 14.8 Const: General: cooperative, healthy appearing and comfortable Orientation/consciousness: oriented to person, oriented to place and oriented to time HENMT: Head: Yes normal to inspection Neck: Neck: Yes normal visual inspection Carotids: no bruits Chest: Chest palpation & inspection: normal inspection of the chest Resp: Effort & Inspection: normal respiratory effort and able to speak in complete sentences Auscultation: clear to auscultation bilaterally, no crackles, no rales, no rhonchi and no wheezes Cardio: Rate: regular rate Rhythm: regular rhythm Heart sounds: S1 normal heart sound present and S2 normal heart sound present Bruits: no carotid bruits Peripheral pulses: Peripheral pulses 2+ throughout GI: Inspection: Yes normal to inspection Skin: Other: Right foot 2nd and 3rd digits wet gangrene Wounds: no wounds Hair: normal Neuro: General: oriented to person, oriented to place and oriented to time Cranial nerves: Yes CN's II-XII intact bilaterally and Yes Normal hearing present Cognition (Neuro): normal cognition Motor exam (neuro): 5/5 motor strength present throughout Extrem: Other: venous exam: No significant superficial varicosities or spider telangiectasias, minimal edema General: No clubbing, No cyanosis and No edema Psych: Appearance: grossly normal Mental Status: mental status grossly normal Speech and movement: Normal speech and movement present Results Labs Result diagrams: 06/03/21 14:32 06/03/21 14:32 Labs: Abnormal lab results 06/03/21 06/03/21 06/03/21 Range/Units 14:32 14:32 16:46 RBC 4.09 L (4.60-5.80) X10*6/uL Hgb 12.1 L (14.0-18.0) g/dl Hct 38.5 L (42.0-52.0) % RDW 19.8 H (11.0-16.0) % MPV 8.6 L (9.4-12.4) fL Neut % (Auto) 75.2 H (45-73) % Lymph % (Auto) 15.7 L (20-40) % BUN 17 H (9-16) mg/dL C-Reactive Protein 1.53 H (< or = 0.50) mg/dL Short CBC 06/03/21 Range/Units 14:32 WBC 8.9 (4.8-10.8) X10*3/uL Hgb 12.1 L (14.0-18.0) g/dl Hct 38.5 L (42.0-52.0) % Plt Count 334 (160-400) X10*3/uL BMP 06/03/21 14:32 Sodium 137 Potassium 4.6 Chloride 104 Carbon Dioxide 25 BUN 17 H Creatinine 0.66 Calcium 9.2 D All other labs normal. Imaging Additional studies: CT scan from November was reviewed Assessment and Plan (1) Peripheral vascular disease: Status: Acute Patient notes nonhealing right leg ulcer. I have discussed the pathophysiology of peripheral vascular disease with the patient. I have also discussed risk factor modification. I have reviewed the patient's arterial testing which reveals iliac occlusion along with SFA disease the patient would benefit from a right leg endovascular peripheral angiogram with possible angioplasty, stent, and/or atherectomy. This has been discussed in detail with the patient along with risks, benefits, and complications. This includes but is not limited to bleeding, infection, heart attack, need for emergent surgical repair, limb ischemia, blood vessel damage, bleeding, puncture, kidney injury, bruising, allergic reaction, and skin reaction. The patient demonstrates a clear understanding. We will schedule for the next appropriate time. Thank you for allowing us to assist in this patient's care. Procedures Date of Service Date of Service: 06/04/21
--- NOTE | 2021-06-04 07:46 | PC.NURSE ---
Unable to assess pt at this time as pt is at Same Day
[2021-06-04] MEDS: iohexoL 300 MG/ML 100 ML INFUS..BTL IV (09:08)
[2021-06-04] MEDS: oxyCODONE HCl Immed Release 5 MG TABLET PO (09:15)
[2021-06-04] MEDS: Acetaminophen 325 MG TABLET 650 MG PO (09:15)
[2021-06-04] MEDS: Morphine Sulfate 2 MG/ML CARTRIDGE IVPUSH ×2 (09:24→09:56)
--- NOTE | 2021-06-04 09:48 | P.OP_ITS ---
Operative Note Operative Note Date of Service: 06/04/21 Narrative: Angiogram report from [facility] Preoperative diagnosis: Atherosclerosis of right lower extremity with nonhealing ulcer Postoperative diagnosis: Same Procedure: 1. Ultrasound-guided rightcommon femoral access 2. Aortogram Surgeon:Aleksander Pollock M.D., FACS, RPVI Wire Weaving Loom Setter:None Anesthesia: Local with moderate conscious sedation. Total intraservice moderate sedation time was 40 minutes. I monitored the patient's level of consciousness and physiologic status continuously throughout the procedure. Specimens:none Drains:none Estimated blood loss: Less than 10 ml Implant: None Indications: 65-year-old gentleman presented with critical limb right lower extremity ischemia. He now presents for endovascular intervention. The patient has signed the informed consent after reviewing risks, complications, benefits, and alternatives previously discussed with the patient. The patient was given the opportunity to ask any additional questions or voice any concerns. All questions were answered to the patient's satisfaction. Procedure in detail: Patient was brought to the angiography suite prior to which a time-out was called for patient identification and site verification. Bilateral groins were prepped and draped in the standard surgical fashion. Under ultrasound guidance right common femoral was punctured with micro puncture needle and wire. Subsequently a precision 5 [place] sheath was then placed. We tried to advance a [employer] wire into the level of the aorta. We were unable to traverse the lesions. Subsequently we brought a Glidewire and it went into the aorta. We injected contrast through an angle glide catheter. It appeared that there was a dissection. We subsequently repeat removed everything and Vadim punctured under ultrasound guidance once again we did get good flow in return but we could not confirmed true lumen we then punctured for 3rd time this time we were able to get good flow in return we exchanged out for 4 [place] sheath and once again it appeared that there was a dissection plane. At this point we terminated the procedure. Catheter wire and sheath were then removed. Direct pressure was held for 10 minutes. Interpretation of films: 1. Ultrasound demonstrates appropriate femoral puncture. Image of which was saved. 2. Aortogram demonstrates appropriate caliber aorta. Minimal disease. Appropriate take-off of the renals. 3. Iliac images demonstrate highly calcified iliacs no evidence of hypogastric on the right. Left completely occluded 4. Right Leg Common femoral artery: Significant atherosclerotic disease noted Conclusion: 1. Severe multivessel and and multilevel peripheral vascular disease 2. Anticoagulation status: No change will need operative intervention This note is constructed using voice recognition software. While every effort has been made to ensure accuracy, business process representative errors may have been included. Thank you for allowing me to participate in the care of your patient. Yours sincerely, Aleksander Pollock MD, FACS, R.P.V.I.
[2021-06-04] MEDS: vancomycin HCL 500 MG in 0.9 % Sodium Chloride 100 ML 110 MG IV ×2 (10:14→21:29)
--- NOTE | 2021-06-04 10:58 | PC.NURSE ---
Received report from DATA PROCESSING CLERKROXANE Wilkins: Pt received R angiogam from MD Pollock and was found to have no flow or circulation- no pulses noted at R pedal point. Pt pending surgery for R extremity and pending CT (R leg). Pending retrieval of pt from PACU.
[2021-06-04] MEDS: 0.9 % Sodium Chloride 1,000 ML 100 ML IVCONT ×2 (11:35→17:47)
[2021-06-04] MEDS: Gabapentin 100 MG CAPSULE 200 MG PO ×3 (11:35→21:24)
[2021-06-04] MEDS: Ferrous Sulfate 324 MG TABLET.DR PO (11:35)
[2021-06-04 12:37] LABS: Hematocrit 34.4 % (42.0-52.0); Hemoglobin 11.1 g/dl (14.0-18.0); Mean Corpuscular HGB Conc 32.3 g/dl (31.0-36.0); Mean Corpuscular Hemoglobin 29.9 pg (27.0-33.0); Mean Corpuscular Volume 92.7 fL (80.0-98.0); Platelet Count 278 X10*3/uL (160-400); Red Blood Count 3.71 X10*6/uL (4.60-5.80); Red Cell Distribution Width 19.7 % (11.0-16.0); White Blood Count 10.2 X10*3/uL (4.8-10.8)
[2021-06-04 12:42] LABS: Prothrombin Time 11.8 SEC (9.9-13.0)
[2021-06-04 12:44] LABS: PTT Heparin Drip 37.7 SEC (53-77.9)
[2021-06-04 13:02] LABS: Anion Gap 15 (12-20); Blood Urea Nitrogen 14 mg/dL (9-16); Calcium 8.6 mg/dL (8.4-10.2); Carbon Dioxide 21 mmol/L (22-29); Chloride 105 mmol/L (96-108); Creatinine Clr Calc Pharmacy 72.6; Estimated Glomerular Filt Rate > 60; Glucose Random 115 mg/dL (60-115); Sodium 137 mmol/L (135-145)
[2021-06-04] MEDS: Heparin Sodium,Porcine/1/2NS 25,000 UNIT/250 ML IV.SOLN 6.35 UNIT IVCONT (13:10)
--- NOTE | 2021-06-04 14:21 | PC.NURSE ---
Pt's neurovascular surgeon MD Pollock unable to be contacted as he has left the facility contacted in his place in order for a doctor to discuss findings of pt's earlier angiogram. RN will continue to monitor.
--- NOTE | 2021-06-04 14:33 | PC.NURSE ---
Pt's mother: [phone]
[2021-06-04] MEDS: Morphine Sulfate 4 MG/ML CARTRIDGE IVPUSH ×2 (14:43→23:59)
--- NOTE | 2021-06-04 14:54 | P.PNIM_ITS ---
Subjective Subjective Date of Service: 06/04/21 Interval History: severe PAD, right lower ext cellulitis Review of Systems patient still has leg pain, has erythema of the foot. denies any nausea vomiting or abdominal pain or fever or chills. Physical Exam Vital Signs: Vital Signs: Last Vital Signs Temp 98.4 F 06/04/21 10:49 Pulse 90 06/04/21 14:35 Resp 14 06/04/21 14:35 BP 139/71 06/04/21 14:35 Pulse Ox 97 06/04/21 14:35 BMI result Body Mass Index 14.8 Physical exam: Appearance: Alert.? Oriented X3.? not in distress.? cvs: rrr, [id number] , no murmur res: clear to auscultation ,no rhonchii or wheezing abd: no rebound or guarding ,nt, bs present. ext pulses present , no cyanosis ,foot -seems unchanged -please see h&p pics. neuro: axo3 , nonfocal. Objective Data Active Medications Acetaminophen (Acetaminophen 325 Mg Tablet) 650 mg PO Q6H PRN PRN Reason: Pain, Mild (Pain Scale 1-3) Last Admin: 06/04/21 09:15 Dose: 650 mg Documented by: FAROOQ Ferrous Sulfate (Ferrous Sulfate 324 Mg Tablet.) 324 mg PO DAILY [facility] Last Admin: 06/04/21 11:35 Dose: 324 mg Documented by: MARCUS Finasteride (Finasteride 5 Mg Tablet) 5 mg PO BEDTIME [facility] Last Admin: 06/03/21 21:04 Dose: 5 mg Documented by: FREDA Gabapentin (Gabapentin 100 Mg Capsule) 200 mg PO TID [facility] Last Admin: 06/04/21 11:35 Dose: 200 mg Documented by: MARCUS Heparin Sodium (Porcine) (Heparin Sodium,Porcine 5,000 Unit/Ml Vial) 1,800 unit 40 unit/kg (1800 unit) IVPUSH PROTOCOL BOLUS PRN; Protocol PRN Reason: 40 unit/kg - Heparin Protocol Heparin Sodium (Porcine) (Heparin Sodium,Porcine 5,000 Unit/Ml Vial) 3,600 unit 80 unit/kg (3600 unit) IVPUSH PROTOCOL BOLUS PRN; Protocol PRN Reason: 80 unit/kg - Heparin Protocol Vancomycin HCl 500 mg/ Sodium (Chloride) 110 mls @ 110 mls/hr IV Q12H [facility] Last Infusion: 06/04/21 11:31 Dose: 0 mls/hr Documented by: MARCUS Piperacillin Sod/Tazobactam (Sod 3.375 gm/ Sodium Chloride) 50 mls @ 100 mls/hr IV Q6H [facility] Last Infusion: 06/04/21 13:45 Dose: 0 mls/hr Documented by: MARCUS Sodium Chloride (Ns) 1,000 mls @ 100 mls/hr IVCONT .Q10H [facility] Last Admin: 06/04/21 11:35 Dose: 100 mls/hr Documented by: MARCUS Lactated Ringer's (Lr) 1,000 mls @ 80 mls/hr IVCONT .[id number] [facility] Last Admin: 06/04/21 11:55 Dose: Not Given Documented by: MARCUS Non-Admin Reason: See Note Heparin Sodium/Sodium Chloride () 25,000 unit in 250 mls @ 0 mls/hr IVCONT .Q0M [facility]; Protocol Last Admin: 06/04/21 13:10 Dose: 14 units/kg/hr, 6.35 mls/hr Documented by: MARCUS Cosigned by: BLAYNE Morphine Sulfate (Morphine Sulfate 2 Mg/Ml Cartridge) 2 mg IVPUSH Q4H PRN; Protocol PRN Reason: Pain, Severe (Pain Scale 7-10) Last Admin: 06/04/21 09:24 Dose: 2 mg Documented by: FAROOQ Morphine Sulfate (Morphine Sulfate 4 Mg/Ml Cartridge) 4 mg IVPUSH Q2H PRN; Protocol PRN Reason: Pain, Severe (Pain Scale 7-10) Last Admin: 06/04/21 14:43 Dose: 4 mg Documented by: MARCUS Omeprazole (Omeprazole 20 Mg Capsule.Dr) 20 mg PO BID@0630,1630 [facility] Ondansetron HCl (Ondansetron Hcl 4 Mg/2 Ml Vial) 4 mg IVPUSH Q8H PRN PRN Reason: Nausea and Vomiting Oxycodone HCl (Oxycodone Hcl Immed Release 5 Mg Tablet) 5 mg PO Q6H PRN PRN Reason: Pain, Severe (Pain Scale 7-10) Oxycodone HCl (Oxycodone Hcl Immed Release 5 Mg Tablet) 5 mg PO DAILY [facility] Last Admin: 06/04/21 09:15 Dose: 5 mg Documented by: FAROOQ Pharmacy Consult (Consult Rx Perform Med Rec) 1 each MISCELLANE ONCE PRN PRN Reason: Consult order Pharmacy Consult (Consult Rx Vancomycin Dosing) 1 each MISCELLANE DAILY PRN PRN Reason: Consult order Sodium Chloride (0.9 % Sodium Chloride Flush 3 Ml Syringe) 3 ml IVFLUSH QSHIFT [facility] Last Admin: 06/04/21 11:31 Dose: Not Given Documented by: MARCUS Non-Admin Reason: Med Not Available Sucralfate (Sucralfate 1 Gm Tablet) 1 gm PO BIDAC [facility] Labs CBC & Chem 7: 06/04/21 12:13 06/04/21 12:13 Labs: Laboratory Results - last 24 hr 06/03/21 06/03/21 06/03/21 16:46 16:46 16:49 MCV MCH MCHC RDW Plt Count MPV Absolute Nucleated RBC Nucleated RBC % (auto) ESR 14 PT INR PTT (Heparin Protocol) Anion Gap Estim Creat Clear Calc Estimated GFR Random Glucose Calcium C-Reactive Protein 1.53 H COVID-19 ([facility]) Negative COVID-19 Clin Com See Note 06/04/21 06/04/21 06/04/21 12:13 12:13 12:13 MCV 92.7 MCH 29.9 MCHC 32.3 RDW 19.7 H Plt Count 278 MPV 9.0 L Absolute Nucleated RBC 0.000 Nucleated RBC % (auto) 0.0 ESR PT 11.8 INR 1.0 PTT (Heparin Protocol) 37.7 L Anion Gap Cancelled Estim Creat Clear Calc Cancelled Estimated GFR Cancelled Random Glucose Cancelled Calcium Cancelled C-Reactive Protein COVID-19 ([facility]) COVID-19 Clin Com 06/04/21 12:13 MCV MCH MCHC RDW Plt Count MPV Absolute Nucleated RBC Nucleated RBC % (auto) ESR PT INR PTT (Heparin Protocol) Anion Gap 15 Estim Creat Clear Calc 72.6 Estimated GFR > 60 Random Glucose 115 Calcium 8.6 D C-Reactive Protein COVID-19 ([facility]) COVID-19 Clin Com Assessment and Plan (1) Peripheral vascular disease: Status: Acute (2) Aortic thrombus: Status: Acute Assessment and Plan: ?60 old man admitted ischemia.? History left critical limb ischemia with AKA in December this year.? He was sent Dr. Yoo office to the ER for further workup.? Critical limb ischemia. Appears to be infected as well, will continue vancomycin Angio revealed severe peripheral vascular disease, CT scan ordered by vascular Recommended to start patient on heparin drip , Monitor PT INR Pain management Wound care cellulitis/Gangrene. Foot x-ray shows early gas formation with will likely need amputation Vascular surgery aware ID eval added Normocytic anemia No signs of bleeding Follow CBC DVT prophylaxis with heparin Ct scan results came back : IMPRESSION: 1.? There has been interval increase in thrombus burden throughout the abdominal aorta with less than 25% patency of the abdominal aorta with near complete occlusion of the inferior most aspect of the abdominal aorta. 2.? There is complete occlusion of the right common iliac artery in addition to the right internal iliac artery. There is reconstitution of the right external iliac artery. The proximal portion of the right common femoral artery is patent although the distal aspect of the right common femoral artery is completely occluded. The right superficial femoral artery is patent although there is complete occlusion at the junction of the superficial femoral and popliteal arteries. The right popliteal artery is severely diseased but appears patent proximally. There is near complete occlusion of the distal right popliteal artery. There is a patent three-vessel takeoff of the proximal calf, however, all 3 arteries gradually loose contrast enhancement, however, this is possibly secondary to bolus timing/poor flow. 3.? There is similar chronic occlusion of the left common, internal and external iliac arteries. Physical exam : as above unchnaged. Ct scan results discussed with Dr Pollock-recomjuan continue current management telemonitering , heparin drip as above. also will need operative procedure for treatment of above in morning , keep npo past midnight Quality Stroke Does the patient have a stroke diagnosis?: No VTE Prior VTE?: No VTE Risk Level:: Medical - moderate - high VTE Device Contraindication: Treatment Not Indicated VTE Drug Contraindication: N/A - Med Ordered
--- NOTE | 2021-06-04 16:17 | PC.NURSE ---
Pt signed consent to have CT with iv contrast and verbal order received from for pt to go to CT without heart monitor. RN will continue to monitor.
[2021-06-04] MEDS: iohexoL 350 MG/ML 100 ML INFUS..BTL IV (17:23)
[2021-06-04] MEDS: Sucralfate 1 GM TABLET PO (17:46)
[2021-06-04] MEDS: Omeprazole 20 MG CAPSULE.DR PO (17:47)
--- NOTE | 2021-06-04 19:30 | PC.NURSE ---
Assumed care of pt from ROXANE Agrawal Pt resting on stretcher
--- NOTE | 2021-06-04 19:40 | PC.NURSE ---
Spoke with Dr. Powell Per Dr. Powell, keep close watch for any change in status of patient's RLE or any chest pain. Per Dr. Powell keep pt NPO after MN for possible procedure in AM. Per Dr. Powell, d/c LR and keep NS. Orders in computer Will continue to monitor
[2021-06-04 19:44] LABS: PTT Heparin Drip 57.8 SEC (53-77.9)
[2021-06-04] MEDS: Finasteride 5 MG TABLET PO (21:24)
--- NOTE | 2021-06-04 22:30 | PC.NURSE ---
Patient medicated per MAR Pt tolerated well Pt made aware of NPO status after MN Pt verbalized understanding AxO x 4 No apparent distress Will continue to monitor
[2021-06-05] VITALS (8 sets, daily range): BP systolic 136–150; BP diastolic 59–73; PULSE 61–98; RESP 16–20; TEMP 37–37.2; O2SAT 96–99; BMI 14.7
[2021-06-05] MEDS: 0.9 % Sodium Chloride 1,000 ML 100 ML IVCONT ×2 (00:01→14:53)
--- NOTE | 2021-06-05 00:10 | PC.NURSE ---
Pt c/o pain to RLE. Pt medicated per AUG Pt pulled out IV on RT wrist at unknown time. Heparin paused New 20g IV placed on RT forearm. Pt tolerated well. Heparin re-started. Will continue to monitor
[2021-06-05 01:01] LABS: PTT Heparin Drip 41.6 SEC (53-77.9)
[2021-06-05] MEDS: Piperacillin Sodium/Tazobactam 3.375 GM in 0.9 % Sodium Chloride 50 ML IV ×4 (02:00→18:51)
[2021-06-05] MEDS: 0.9 % Sodium Chloride Flush 3 ML SYRINGE IVFLUSH (02:04)
[2021-06-05] MEDS: Heparin Sodium,Porcine 5,000 UNIT/ML VIAL 1800 UNIT IVPUSH (02:06)
[2021-06-05 05:51] LABS: Hematocrit 32.7 % (42.0-52.0); Hemoglobin 10.8 g/dl (14.0-18.0); Mean Corpuscular Hemoglobin 30.3 pg (27.0-33.0); Mean Corpuscular Volume 91.9 fL (80.0-98.0); Mean Platelet Volume 8.5 fL (9.4-12.4); Platelet Count 255 X10*3/uL (160-400); Red Blood Count 3.56 X10*6/uL (4.60-5.80); Red Cell Distribution Width 19.7 % (11.0-16.0)
[2021-06-05 05:56] LABS: INTERNATIONAL NORM RATIO 1.1 (0.9-1.1); Prothrombin Time 12.3 SEC (9.9-13.0)
[2021-06-05 06:27] LABS: Vancomycin Trough 7.6 mcg/mL (10.0-20.0)
--- NOTE | 2021-06-05 06:52 | HE.PHANOTE ---
Vancomycin Dosing Addendum Pts trough 7.6. Increased dose to 750 mg q12h for a predicted AUC of 507. Next trough due 06/06/21 @1800. Creatinine ordered for 06/05/21 and pending.
[2021-06-05 07:59] LABS: PTT Heparin Drip 82.9 SEC (53-77.9)
[2021-06-05 08:07] LABS: Anion Gap 14 (12-20); Blood Urea Nitrogen 6 mg/dL (9-16); Calcium 8.4 mg/dL (8.4-10.2); Carbon Dioxide 24 mmol/L (22-29); Chloride 100 mmol/L (96-108); Creatinine Clr Calc Pharmacy 81.4; Estimated Glomerular Filt Rate > 60; Glucose Random 78 mg/dL (60-115); Potassium 3.6 mmol/L (3.3-5.1); Sodium 134 mmol/L (135-145)
[2021-06-05] MEDS: Heparin Sodium,Porcine/1/2NS 25,000 UNIT/250 ML IV.SOLN 6.35 UNIT IVCONT ×2 (08:26→14:57)
[2021-06-05] MEDS: vancomycin HCL 750 MG in 0.9 % Sodium Chloride 250 ML 265 MG IV ×2 (08:44→22:31)
--- NOTE | 2021-06-05 09:12 | PC.NURSE ---
Pt received from [facility]: Pt AOx4 and NSR and dimished lungs Pt's heparin drip continues Pt R foot noted to have gangrene to several toes. Pending surgery by neurovascular MD Pollock sometime today.
--- NOTE | 2021-06-05 10:21 | P.PNVS_ITS ---
Subjective Subjective Date of Service: 06/05/21 Patient reports: no new complaints and still having pain Interval history: Complex 65-year-old gentleman with severe peripheral vascular disease presents for follow-up. He had undergone attempted endovascular intervention yesterday. There was a total occlusion and I was unable to get into the true lumen. He underwent a subsequent CT scan. It demonstrated distal total occlusion. There is a significant progression of disease. He has had no events overnight. He states that his pain is doing better. He is now on a heparin drip. He is for postprocedure follow-up. Physical Exam Vital Signs: Vital Signs: Last Vital Signs Temp 98.4 F 06/04/21 10:49 Pulse 66 06/05/21 10:00 Resp 19 06/05/21 10:00 BP 136/68 06/05/21 10:00 Pulse Ox 96 06/05/21 10:00 BMI result Body Mass Index 14.8 Const: General: cooperative, healthy appearing and no acute distress Orientation/consciousness: oriented to person, oriented to place and oriented to time HENMT: Head: Yes normal to inspection Neck: Carotids: no bruits Chest: Chest palpation & inspection: normal inspection of the chest Resp: Effort & Inspection: normal respiratory effort and able to speak in complete sentences Auscultation: clear to auscultation bilaterally Cardio: Rate: regular rate Heart sounds: S1 normal heart sound present and S2 normal heart sound present GI: Inspection: Yes normal to inspection Skin: General skin exam: no rashes or lesions noted Wounds: amputation site (Left amp well-healed) and wounds noted (Right 2nd and 3rd toe) Neuro: General: oriented to person, oriented to place, oriented to time and CN's II-XI intact bilaterally Extrem: General: Yes normal to inspection, Yes full ROM and Yes no clubbing, cyanosis or edema Psych: Appearance: grossly normal and well kempt Speech and movement: Normal speech and movement present Affect: normal affect Progress Note: A&P Assessment and plan (1) Occlusion of terminal aorta: Status: Acute Assessment and Plan: In short patient has severe peripheral vascular disease with the distal aortic occlusion. His leg is in extremities. He will need an open aortobifemoral bypass. I have taken the liberty of ordering cardiac and pulmonary evaluation for risk stratification. Will try to expedite this and hopefully perform s urgery early next week. In addition I reached out to his mother Joan. We discussed his overall situation and prognosis. They are both well aware that he is at high risk of losing the right lower extremity as well. We will continue to monitor him closely. Maintain on heparin GTT. Fall Risk Details Current Medications: Current Medications Acetaminophen (Acetaminophen 325 Mg Tablet) 650 mg PO Q6H PRN PRN Reason: Pain, Mild (Pain Scale 1-3) Last Admin: 06/04/21 09:15 Dose: 650 mg Documented by: Albuterol/Ipratropium (Albuterol/Iprat 2.5/0.5mg 3 Ml Ampul.Neb) 3 ml INHALE RQ6H WHILE AWAKE [facility] Ferrous Sulfate (Ferrous Sulfate 324 Mg Tablet.) 324 mg PO DAILY [facility] Last Admin: 06/05/21 07:54 Dose: Not Given Documented by: Finasteride (Finasteride 5 Mg Tablet) 5 mg PO BEDTIME [facility] Last Admin: 06/04/21 21:24 Dose: 5 mg Documented by: Gabapentin (Gabapentin 100 Mg Capsule) 200 mg PO TID [facility] Last Admin: 06/05/21 07:54 Dose: Not Given Documented by: Heparin Sodium (Porcine) (Heparin Sodium,Porcine 5,000 Unit/Ml Vial) 1,800 unit 40 unit/kg (1800 unit) IVPUSH PROTOCOL BOLUS PRN; Protocol PRN Reason: 40 unit/kg - Heparin Protocol Last Admin: 06/05/21 02:06 Dose: 1,800 unit Documented by: Heparin Sodium (Porcine) (Heparin Sodium,Porcine 5,000 Unit/Ml Vial) 3,600 unit 80 unit/kg (3600 unit) IVPUSH PROTOCOL BOLUS PRN; Protocol PRN Reason: 80 unit/kg - Heparin Protocol Piperacillin Sod/Tazobactam (Sod 3.375 gm/ Sodium Chloride) 50 mls @ 100 mls/hr IV Q6H [facility] Last Infusion: 06/05/21 07:53 Dose: Infused Documented by: Sodium Chloride (Ns) 1,000 mls @ 100 mls/hr IVCONT .Q10H [facility] Last Admin: 06/05/21 00:01 Dose: 100 mls/hr Documented by: Heparin Sodium/Sodium Chloride () 25,000 unit in 250 mls @ 0 mls/hr IVCONT .Q0M [facility]; Protocol Last Admin: 06/05/21 08:26 Dose: 14 units/kg/hr, 6.35 mls/hr Documented by: Vancomycin HCl 750 mg/ Sodium (Chloride) 265 mls @ 265 mls/hr IV Q12H [facility] Last Infusion: 06/05/21 09:51 Dose: Infused Documented by: Morphine Sulfate (Morphine Sulfate 2 Mg/Ml Cartridge) 2 mg IVPUSH Q4H PRN; Protocol PRN Reason: Pain, Severe (Pain Scale 7-10) Last Admin: 06/04/21 09:24 Dose: 2 mg Documented by: Morphine Sulfate (Morphine Sulfate 4 Mg/Ml Cartridge) 4 mg IVPUSH Q2H PRN; Protocol PRN Reason: Pain, Severe (Pain Scale 7-10) Last Admin: 06/04/21 23:59 Dose: 4 mg Documented by: Omeprazole (Omeprazole 20 Mg Capsule.Dr) 20 mg PO BID@0630,1630 [facility] Last Admin: 06/05/21 06:40 Dose: Not Given Documented by: Ondansetron HCl (Ondansetron Hcl 4 Mg/2 Ml Vial) 4 mg IVPUSH Q8H PRN PRN Reason: Nausea and Vomiting Oxycodone HCl (Oxycodone Hcl Immed Release 5 Mg Tablet) 5 mg PO Q6H PRN PRN Reason: Pain, Severe (Pain Scale 7-10) Oxycodone HCl (Oxycodone Hcl Immed Release 5 Mg Tablet) 5 mg PO DAILY [facility] Last Admin: 06/05/21 07:54 Dose: Not Given Documented by: Pharmacy Consult (Consult Rx Perform Med Rec) 1 each MISCELLANE ONCE PRN PRN Reason: Consult order Pharmacy Consult (Consult Rx Vancomycin Dosing) 1 each MISCELLANE DAILY PRN PRN Reason: Consult order Sodium Chloride (0.9 % Sodium Chloride Flush 3 Ml Syringe) 3 ml IVFLUSH QSHIFT [facility] Last Admin: 06/05/21 07:56 Dose: Not Given Documented by: Sucralfate (Sucralfate 1 Gm Tablet) 1 gm PO BIDAC [facility] Last Admin: 06/05/21 07:06 Dose: Not Given Documented by: Time Spent With Patient Time: Total time spent is greater than 50% in coordination of care (as documented) at patient's floor/unit and/or counseling patient: Time with patient: 25 - 35 minutes Procedures Date of Service Date of Service: 06/05/21 Quality Stroke Does the patient have a stroke diagnosis?: No VTE Prior VTE?: No VTE Risk Level:: Medical - moderate - high VTE Device Contraindication: Treatment Not Indicated VTE Drug Contraindication: N/A - Med Ordered
[2021-06-05 11:15] LABS: Venous Blood Gas Refer to POC result
[2021-06-05 11:17] LABS: VBG Base Excess 0.1 mmol/L; VBG HCO3 22 mmol/L (22-26); VBG pCO2 30 mmHg; VBG pH 7.47 (7.32-7.43); VBG pO2 89 mmHg
--- NOTE | 2021-06-05 12:00 | CA_ITS ---
Acquisition Time: 2021-06-06 08:24:53 Total Exercise Time: 00:02:00 Test Indications: CP Medications: SEE CHART Protocol: LEXISCAN Max HR: 108 BPM 69% of Pred: 155 BPM Max BP: 124/066 mmHG Max Work Load: 1.0 METS Pharmacological stress test with Lexiscan injection, while laying supine, without anginal symptoms, with isolated PVC, with normotensive response to injection, with nondiagnostic EKG for ischemia. Nuclear images pending. Test reviewed with Dr Gloria. Referred By: Sreekanth Gloria Overread By: TAYLER DENTON
--- NOTE | 2021-06-05 12:33 | P.CONCA_ITS ---
History of Present Illness History of Present Illness Date of Service: 06/05/21 Requesting physician: Aleksander Pollock Consult reason: pre-op evaluation Chief complaint: Preoperative cardiovascular risk stratification Narrative: I was requested to see Andrew in cardiology consultation today as he needs to undergo urgent lower extremity revascularization with aorta bi femoral grafting under general anesthesia. This is considered high risk surgery. This is to be done for aortic occlusion and significant ischemia and his right lower extremity. 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 Since then he has been very minimally active. He does get short of breath when he gets agitated. However denies any chest pain. His functional capacity significantly reduced. He says he has no prior history of heart disease or has any cardiac events in the past. Echocardiogram done in November at shown normal LV systolic function. EKG shows right bundle-branch block, unclear duration. Review of Systems Constitutional: Constitutional: Reports no additional constitutional complaints Eyes: Eyes: Reports no additional eye complaints Cardiovascular: Cardiovascular: Reports no additional cardiovascular complaints and Reports dyspnea (With agitation) Respiratory: Respiratory: Reports dyspnea (With agitation) Gastrointestinal: Gastrointestinal: Reports no additional gastrointestinal complaints Genitourinary: Genitourinary: Reports no additional male genitourinary complaints Musculoskeletal: Musculoskeletal: Reports other (Pain in his lower extremity) Integumentary/Breasts: Skin/Breast: Reports system reviewed and no additional complaints, except as docu Neurologic: Reports system reviewed and no additional complaints, except as documented Psychiatric: Psychiatric: Reports no additional psychiatric complaints [facility] Past Medical History Medical History COVID-19 Left above-knee amputee Peripheral vascular disease Tobacco use disorder Family History Family History Mother No problems noted. Father COPD (chronic obstructive pulmonary disease) Surgical History Surgical History H/O esophagogastroduodenoscopy History of amputation below knee History of tonsillectomy Social History Social History Household Members: Family Household Members Other:: Mom and dad Housing: House Alcohol intake: former Patient Tobacco Use Status: Current everyday Tobacco user Tobacco use type: Cigarette Cigarettes Per Day: 8 Use of substances other than those prescribed or required for medical reasons: No Are you DNR?: No Advance Directives: No Advance Directives Information Provided: Yes Advance Directives on File: No service: No Current occupational status: disabled Meds Allergies Allergy/AdvReac Type Severity Reaction Status Date / Time No Known Allergies Allergy Verified 06/03/21 10:09 Active Medications: Current Medications Acetaminophen (Acetaminophen 325 Mg Tablet) 650 mg PO Q6H PRN PRN Reason: Pain, Mild (Pain Scale 1-3) Last Admin: 06/04/21 09:15 Dose: 650 mg Documented by: Albuterol/Ipratropium (Albuterol/Iprat 2.5/0.5mg 3 Ml Ampul.Neb) 3 ml INHALE RQ6H WHILE AWAKE [facility] Ferrous Sulfate (Ferrous Sulfate 324 Mg Tablet.Dr) 324 mg PO DAILY [facility] Last Admin: 06/05/21 07:54 Dose: Not Given Documented by: Finasteride (Finasteride 5 Mg Tablet) 5 mg PO BEDTIME GERTRUDIS Last Admin: 06/04/21 21:24 Dose: 5 mg Documented by: Gabapentin (Gabapentin 100 Mg Capsule) 200 mg PO TID [facility] Last Admin: 06/05/21 07:54 Dose: Not Given Documented by: Heparin Sodium (Porcine) (Heparin Sodium,Porcine 5,000 Unit/Ml Vial) 1,800 unit 40 unit/kg (1800 unit) IVPUSH PROTOCOL BOLUS PRN; Protocol PRN Reason: 40 unit/kg - Heparin Protocol Last Admin: 06/05/21 02:06 Dose: 1,800 unit Documented by: Heparin Sodium (Porcine) (Heparin Sodium,Porcine 5,000 Unit/Ml Vial) 3,600 unit 80 unit/kg (3600 unit) IVPUSH PROTOCOL BOLUS PRN; Protocol PRN Reason: 80 unit/kg - Heparin Protocol Piperacillin Sod/Tazobactam (Sod 3.375 gm/ Sodium Chloride) 50 mls @ 100 mls/hr IV Q6H [facility] Last Infusion: 06/05/21 07:53 Dose: Infused Documented by: Sodium Chloride (Ns) 1,000 mls @ 100 mls/hr IVCONT .Q10H [facility] Last Admin: 06/05/21 00:01 Dose: 100 mls/hr Documented by: Heparin Sodium/Sodium Chloride () 25,000 unit in 250 mls @ 0 mls/hr IVCONT .Q0M [facility]; Protocol Last Admin: 06/05/21 08:26 Dose: 14 units/kg/hr, 6.35 mls/hr Documented by: Vancomycin HCl 750 mg/ Sodium (Chloride) 265 mls @ 265 mls/hr IV Q12H [facility] Last Infusion: 06/05/21 09:51 Dose: Infused Documented by: Morphine Sulfate (Morphine Sulfate 2 Mg/Ml Cartridge) 2 mg IVPUSH Q4H PRN; Protocol PRN Reason: Pain, Severe (Pain Scale 7-10) Last Admin: 06/04/21 09:24 Dose: 2 mg Documented by: Morphine Sulfate (Morphine Sulfate 4 Mg/Ml Cartridge) 4 mg IVPUSH Q2H PRN; Protocol PRN Reason: Pain, Severe (Pain Scale 7-10) Last Admin: 06/04/21 23:59 Dose: 4 mg Documented by: Omeprazole (Omeprazole 20 Mg Capsule.Dr) 20 mg PO BID@0630,1630 [facility] Last Admin: 06/05/21 06:40 Dose: Not Given Documented by: Ondansetron HCl (Ondansetron Hcl 4 Mg/2 Ml Vial) 4 mg IVPUSH Q8H PRN PRN Reason: Nausea and Vomiting Oxycodone HCl (Oxycodone Hcl Immed Release 5 Mg Tablet) 5 mg PO Q6H PRN PRN Reason: Pain, Severe (Pain Scale 7-10) Oxycodone HCl (Oxycodone Hcl Immed Release 5 Mg Tablet) 5 mg PO DAILY [facility] Last Admin: 06/05/21 07:54 Dose: Not Given Documented by: Pharmacy Consult (Consult Rx Perform Med Rec) 1 each MISCELLANE ONCE PRN PRN Reason: Consult order Pharmacy Consult (Consult Rx Vancomycin Dosing) 1 each MISCELLANE DAILY PRN PRN Reason: Consult order Sodium Chloride (0.9 % Sodium Chloride Flush 3 Ml Syringe) 3 ml IVFLUSH QSHIFT [facility] Last Admin: 06/05/21 07:56 Dose: Not Given Documented by: Sucralfate (Sucralfate 1 Gm Tablet) 1 gm PO BIDAC [facility] Last Admin: 06/05/21 07:06 Dose: Not Given Documented by: Home Medications Medication Instructions Recorded Confirmed Last Taken Type ferrous sulfate 325 mg (65 mg 325 mg PO DAILY 07/26/21 12/14/21 Unknown History iron) tablet (FeroSul) gabapentin 100 mg capsule 200 mg PO TID 06/03/21 06/03/21 06/03/21 History Physical Exam Vital Signs: Vital Signs: Last Vital Signs Temp 98.4 F 06/04/21 10:49 Pulse 66 06/05/21 10:00 Resp 19 06/05/21 10:00 BP 136/68 06/05/21 10:00 Pulse Ox 96 06/05/21 10:00 BMI result Body Mass Index 14.8 Const: General: cooperative, comfortable, no acute distress, alert and awake Nutritional Appearance: underweight Orientation/consciousness: patient oriented x3 HENMT: Head: Yes normocephalic Neck: Neck: Yes trachea midline, Yes supple and Yes no JVD Resp: Effort & Inspection: normal respiratory effort Auscultation: diminished lung sounds Cardio: Jugular venous distension: no JVD Palpation: normal PMI Rate: regular rate Rhythm: regular rhythm Heart sounds: S1 normal heart sound present, S2 normal heart sound present, no click, no gallops and no murmurs GI: Auscultation: normal bowel sounds Skin: General skin exam: no rashes or lesions noted Neuro: General: patient oriented x3 and no focal motor deficits Extrem: General: Yes no clubbing, cyanosis or edema and Yes amputation noted Objective Labs and Meds Result diagrams: 06/05/21 05:44 06/05/21 07:03 Lab results: Laboratory Results - last 24 hr 06/04/21 06/04/21 06/04/21 12:13 12:13 12:13 WBC 10.2 RBC 3.71 L Hgb 11.1 L Hct 34.4 L MCV 92.7 MCH 29.9 MCHC 32.3 RDW 19.7 H Plt Count 278 MPV 9.0 L Absolute Nucleated RBC 0.000 Nucleated RBC % (auto) 0.0 PT 11.8 INR 1.0 PTT (Heparin Protocol) 37.7 L VBG pH VBG pCO2 VBG pO2 VBG HCO3 VBG O2 Saturation VBG Base Excess Sodium Cancelled Potassium Cancelled Chloride Cancelled Carbon Dioxide Cancelled Anion Gap Cancelled BUN Cancelled Creatinine Cancelled Estim Creat Clear Calc Cancelled Estimated GFR Cancelled Random Glucose Cancelled Calcium Cancelled Vancomycin Trough 06/04/21 06/04/21 06/05/21 12:13 19:10 00:50 WBC RBC Hgb Hct MCV MCH MCHC RDW Plt Count MPV Absolute Nucleated RBC Nucleated RBC % (auto) PT INR PTT (Heparin Protocol) 57.8 D 41.6 L D VBG pH VBG pCO2 VBG pO2 VBG HCO3 VBG O2 Saturation VBG Base Excess Sodium 137 Potassium 4.0 Chloride 105 Carbon Dioxide 21 L Anion Gap 15 BUN 14 Creatinine 0.65 Estim Creat Clear Calc 72.6 Estimated GFR > 60 Random Glucose 115 Calcium 8.6 D Vancomycin Trough 06/05/21 06/05/21 06/05/21 05:44 05:44 05:44 WBC 10.0 RBC 3.56 L Hgb 10.8 L Hct 32.7 L MCV 91.9 MCH 30.3 MCHC 33.0 RDW 19.7 H Plt Count 255 MPV 8.5 L Absolute Nucleated RBC 0.000 Nucleated RBC % (auto) 0.0 PT 12.3 INR 1.1 PTT (Heparin Protocol) VBG pH VBG pCO2 VBG pO2 VBG HCO3 VBG O2 Saturation VBG Base Excess Sodium Potassium Chloride Carbon Dioxide Anion Gap BUN Creatinine Estim Creat Clear Calc Estimated GFR Random Glucose Calcium Vancomycin Trough 7.6 L 06/05/21 06/05/21 06/05/21 07:03 07:03 11:05 WBC RBC Hgb Hct MCV MCH MCHC RDW Plt Count MPV Absolute Nucleated RBC Nucleated RBC % (auto) PT INR PTT (Heparin Protocol) 82.9 H D VBG pH 7.47 H VBG pCO2 30 VBG pO2 89 VBG HCO3 22 VBG O2 Saturation 98.0 VBG Base Excess 0.1 Sodium 134 L Potassium 3.6 Chloride 100 Carbon Dioxide 24 Anion Gap 14 BUN 6 L D Creatinine 0.58 Estim Creat Clear Calc 81.4 Estimated GFR > 60 Random Glucose 78 Calcium 8.4 Vancomycin Trough Imaging Radiologist's impression: Impressions Aorta w/Runoff CTA 06/04/21 17:24 IMPRESSION: 1. There has been interval increase in thrombus burden throughout the abdominal aorta with less than 25% patency of the abdominal aorta with near complete occlusion of the inferior most aspect of the abdominal aorta. 2. There is complete occlusion of the right common iliac artery in addition to the right internal iliac artery. There is reconstitution of the right external iliac artery. The proximal portion of the right common femoral artery is patent although the distal aspect of the right common femoral artery is completely occluded. The right superficial femoral artery is patent although there is complete occlusion at the junction of the superficial femoral and popliteal arteries. The right popliteal artery is severely diseased but appears patent proximally. There is near complete occlusion of the distal right popliteal artery. There is a patent three-vessel takeoff of the proximal calf, however, all 3 arteries gradually loose contrast enhancement, however, this is possibly secondary to bolus timing/poor flow. 3. There is similar chronic occlusion of the left common, internal and external iliac arteries. This Critical Result was discussed with Dr. Mariano at 6:40 PM on 06/04/2021 and it was ascertained that the content and urgency of the report was understood at the time of direct communication. Chest X-Ray 06/05/21 10:59 IMPRESSION: No acute disease. Assessment and Plan (1) Pre-operative cardiovascular examination, high risk surgery: Status: Acute Preoperative cardiovascular risk stratification for patient to undergo high risk surgery under general anesthesia with high likelihood of underlying obstructive coronary artery disease given his diffuse vascular disease and risk factors. He needs a vasodilating myocardial perfusion imaging for further risk stratification. Currently not having any active symptoms. However if he has significant ischemia, his limb protective surgery will need to be done at a tertiary care center with cardiac back up. If his myocardial perfusion imaging is within normal limits, he was still remain intermediate to high risk given his frailty, anemia for having perioperative cardiovascular events. This was discussed with him. He understands agrees. He was initially hesitant to undergo stress testing but then understanding the rationale he has agreed. Will try to schedule this within the next day or 2. Further treatment based on the findings of test results. He is not currently on high-intensity statin therapy, unsure as to why. This should be initiated. Also should be on antiplatelet therapy, discussed with vascular surgery about the same. Will follow up after stress results. Procedures Date of Service Date of Service: 06/05/21
--- NOTE | 2021-06-05 13:06 | HO.PM.IMPN ---
Subjective Subjective Date of Service: 06/05/21 Interval History: critical limb ischemia , aortic thrombus Review of Systems has leg pain unchanged Denies any chest pain or shortness of breath or abdominal or fever or chills. denies any nausea or vomiting. Physical Exam Vital Signs: Vital Signs: Last Vital Signs Temp 98.4 F 06/04/21 10:49 Pulse 66 06/05/21 10:00 Resp 19 06/05/21 10:00 BP 136/68 06/05/21 10:00 Pulse Ox 96 06/05/21 10:00 BMI result Body Mass Index 14.8 ?Appearance: Alert.? Oriented X3.? not in distress.? cvs: rrr, [id number] , no murmur res: clear to auscultation ,no rhonchii or wheezing abd: no rebound or guarding ,nt, bs present. ext: foot - bluish discoloration seems progressing more than yeserday -especially in first to 3 rd toes . neuro: axo3 , nonfocal. Objective Data Active Medications Acetaminophen (Acetaminophen 325 Mg Tablet) 650 mg PO Q6H PRN PRN Reason: Pain, Mild (Pain Scale 1-3) Last Admin: 06/04/21 09:15 Dose: 650 mg Documented by: FAROOQ Albuterol/Ipratropium (Albuterol/Iprat 2.5/0.5mg 3 Ml Ampul.Neb) 3 ml INHALE RQ6H WHILE AWAKE COUNT INCLUDES [facility] Ferrous Sulfate (Ferrous Sulfate 324 Mg Tablet.) 324 mg PO DAILY [facility] Last Admin: 06/05/21 07:54 Dose: Not Given Documented by: MARCUS Non-Admin Reason: NPO Finasteride (Finasteride 5 Mg Tablet) 5 mg PO BEDTIME COUNT INCLUDES [facility] Last Admin: 06/04/21 21:24 Dose: 5 mg Documented by: LENNIE Gabapentin (Gabapentin 100 Mg Capsule) 200 mg PO TID COUNT [facility]CLUD[facility] Last Admin: 06/05/21 07:54 Dose: Not Given Documented by: MARCUS Non-Admin Reason: NPO Heparin Sodium (Porcine) (Heparin Sodium,Porcine 5,000 Unit/Ml Vial) 1,800 unit 40 unit/kg (1800 unit) IVPUSH PROTOCOL BOLUS PRN; Protocol PRN Reason: 40 unit/kg - Heparin Protocol Last Admin: 06/05/21 02:06 Dose: 1,800 unit Documented by: LENNIE Heparin Sodium (Porcine) (Heparin Sodium,Porcine 5,000 Unit/Ml Vial) 3,600 unit 80 unit/kg (3600 unit) IVPUSH PROTOCOL BOLUS PRN; Protocol PRN Reason: 80 unit/kg - Heparin Protocol Piperacillin Sod/Tazobactam (Sod 3.375 gm/ Sodium Chloride) 50 mls @ 100 mls/hr IV Q6H [facility]CLUD[facility] Last Infusion: 06/05/21 07:53 Dose: 0 mls/hr Documented by: MARCUS Sodium Chloride (Ns) 1,000 mls @ 100 mls/hr IVCONT .Q10H COUNT [facility]CLUDES [facility] Last Admin: 06/05/21 00:01 Dose: 100 mls/hr Documented by: LENNIE Heparin Sodium/Sodium Chloride () 25,000 unit in 250 mls @ 0 mls/hr IVCONT .Q0M [facility]; Protocol Last Admin: 06/05/21 08:26 Dose: 14 units/kg/hr, 6.35 mls/hr Documented by: MARCUS Cosigned by: KENRICK Vancomycin HCl 750 mg/ Sodium (Chloride) 265 mls @ 265 mls/hr IV Q12H COUNT [facility]CLUDES [facility] Last Infusion: 06/05/21 09:51 Dose: 0 mls/hr Documented by: MARCUS Morphine Sulfate (Morphine Sulfate 2 Mg/Ml Cartridge) 2 mg IVPUSH Q4H PRN; Protocol PRN Reason: Pain, Severe (Pain Scale 7-10) Last Admin: 06/04/21 09:24 Dose: 2 mg Documented by: FAROOQ Morphine Sulfate (Morphine Sulfate 4 Mg/Ml Cartridge) 4 mg IVPUSH Q2H PRN; Protocol PRN Reason: Pain, Severe (Pain Scale 7-10) Last Admin: 06/04/21 23:59 Dose: 4 mg Documented by: LENNIE Omeprazole (Omeprazole 20 Mg Capsule.Dr) 20 mg PO BID@0630,1630 [facility] Last Admin: 06/05/21 06:40 Dose: Not Given Documented by: LENNIE Non-Admin Reason: NPO Ondansetron HCl (Ondansetron Hcl 4 Mg/2 Ml Vial) 4 mg IVPUSH Q8H PRN PRN Reason: Nausea and Vomiting Oxycodone HCl (Oxycodone Hcl Immed Release 5 Mg Tablet) 5 mg PO Q6H PRN PRN Reason: Pain, Severe (Pain Scale 7-10) Oxycodone HCl (Oxycodone Hcl Immed Release 5 Mg Tablet) 5 mg PO DAILY [facility] Last Admin: 06/05/21 07:54 Dose: Not Given Documented by: MARCUS Non-Admin Reason: NPO Pharmacy Consult (Consult Rx Perform Med Rec) 1 each MISCELLANE ONCE PRN PRN Reason: Consult order Pharmacy Consult (Consult Rx Vancomycin Dosing) 1 each MISCELLANE DAILY PRN PRN Reason: Consult order Sodium Chloride (0.9 % Sodium Chloride Flush 3 Ml Syringe) 3 ml IVFLUSH QSHIFT COUNT [facility]CLUDES [facility] Last Admin: 06/05/21 07:56 Dose: Not Given Documented by: MARCUS Non-Admin Reason: Med Not Available Sucralfate (Sucralfate 1 Gm Tablet) 1 gm PO BIDAC COUNT [facility]CLUDES [facility] Last Admin: 06/05/21 07:06 Dose: Not Given Documented by: LENNIE Non-Admin Reason: NPO Labs CBC & Chem 7: 06/05/21 05:44 06/05/21 07:03 Labs: Laboratory Results - last 24 hr 06/04/21 06/05/21 06/05/21 19:10 00:50 05:44 MCV 91.9 MCH 30.3 MCHC 33.0 RDW 19.7 H Plt Count 255 MPV 8.5 L Absolute Nucleated RBC 0.000 Nucleated RBC % (auto) 0.0 PT INR PTT (Heparin Protocol) 57.8 D 41.6 L D VBG pH VBG pCO2 VBG pO2 VBG HCO3 VBG O2 Saturation VBG Base Excess Anion Gap Estim Creat Clear Calc Estimated GFR Random Glucose Calcium Vancomycin Trough 06/05/21 06/05/21 06/05/21 05:44 05:44 07:03 MCV MCH MCHC RDW Plt Count MPV Absolute Nucleated RBC Nucleated RBC % (auto) PT 12.3 INR 1.1 PTT (Heparin Protocol) 82.9 H D VBG pH VBG pCO2 VBG pO2 VBG HCO3 VBG O2 Saturation VBG Base Excess Anion Gap Estim Creat Clear Calc Estimated GFR Random Glucose Calcium Vancomycin Trough 7.6 L 06/05/21 06/05/21 07:03 11:05 MCV MCH MCHC RDW Plt Count MPV Absolute Nucleated RBC Nucleated RBC % (auto) PT INR PTT (Heparin Protocol) VBG pH 7.47 H VBG pCO2 30 VBG pO2 89 VBG HCO3 22 VBG O2 Saturation 98.0 VBG Base Excess 0.1 Anion Gap 14 Estim Creat Clear Calc 81.4 Estimated GFR > 60 Random Glucose 78 Calcium 8.4 Vancomycin Trough Microbiology Microbiology Results: Microbiology 06/03/21 16:46 Blood Culture - Preliminary Blood - Venous No growth after 24 hours. 06/03/21 16:46 Blood Culture - Preliminary Blood - Venous No growth after 24 hours. 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 History left critical limb ischemia with [facility] in December this year.? He was sent Dr. Yoo office to the ER for further workup.? 1.Critical limb ischemia and aortic thrombosis : Appears to be infected as well, will continue vancomycin ? Angio revealed severe peripheral vascular disease, CT scan ordered by vascular ? Recommended to start patient on heparin drip ,? Monitor PT INR,Pain management, moniter on tele will needs vasular surgery for aortic thrombosis -need cardio and pulm clearence for above. In the anticipation of surgery patient was seen by cardio and pulmonary: Cardio recommended: Patient needs to get myocardial perfusion study to decide further course of surgery. Also recommended to add High dose statin. pulmonary: Recommended currently COPD tinoco stable, added DuoNebs and thought to be average risk. 2.cellulitis/Gangrene. Foot x-ray shows early gas formation with will likely need amputation possible need vascular intervention since has significant pvd. 3.Normocytic anemia No signs of bleeding or melana as per patient in 12/09 had workup-EGD showed ulcerative and erosive gastroduodenitis,? esophagitis, Nj's esophagus, nonreactive for H pylori. h/h stable continue ppi and sucralfate. Follow CBC DVT prophylaxis with heparin Quality Stroke Does the patient have a stroke diagnosis?: No VTE Prior VTE?: No VTE Risk Level:: Medical - moderate - high VTE Device Contraindication: Treatment Not Indicated VTE Drug Contraindication: N/A - Med Ordered
[2021-06-05] MEDS: Morphine Sulfate 2 MG/ML CARTRIDGE IVPUSH ×2 (13:14→18:57)
--- NOTE | 2021-06-05 13:20 | PC.NURSE ---
Pt to nuclear medicine exam at this time. Pt may go off the monitor for exam as per .
[2021-06-05 13:24] LABS: PTT Heparin Drip 66.5 SEC (53-77.9)
--- NOTE | 2021-06-05 13:53 | PM.CNPUL ---
History of Present Illness History of Present Illness Consult date: 06/05/21 Requesting physician: Aleksander Pollock Chief complaint: Preoperative cardiovascular risk stratification Narrative: This 65 years old gentleman, a hard core smoker, presents with necrotic ulcers on the right foot, Has had left above knee amputation before for similar issue. Is workup is showing significant occlusion of the distal aorta and the iliac arteries. Patient is going to need surgical intervention, on an urgent basis. Pulmonary consultation was requested for preop pulmonary evaluation. Patient claims that he smokes about 1 pack of cigarettes a day. He has mild intermittent cough mostly related to smoking. He denies having any excessive amount of expectoration. He denies any wheezing. He does not walk much so he is not experiencing any dyspnea on exertion. He is not on any bronchodilator inhalers. Review of Systems Review of Systems: This gentleman lying down in the bed appears comfortable. His main complaint is pain in the right lower extremity especially in the foot. Her review of all other systems is not remarkable. Yes all other systems are reviewed and are negative PMFSH Past Medical History Medical History (Updated 06/05/21 @ 14:07 by Bear Izquierdo MD) COVID-19 Left above-knee amputee Peripheral vascular disease Pulmonary emphysema determined by X-ray Tobacco use disorder Family History Family History Mother No problems noted. Father COPD (chronic obstructive pulmonary disease) Surgical History Surgical History H/O esophagogastroduodenoscopy History of amputation below knee History of tonsillectomy Social History Social History Household Members: Family Household Members Other:: Mom and dad Housing: House Alcohol intake: former Patient Tobacco Use Status: Current everyday Tobacco user Tobacco use type: Cigarette Cigarettes Per Day: 8 Use of substances other than those prescribed or required for medical reasons: No Are you DNR?: No Advance Directives: No Advance Directives Information Provided: Yes Advance Directives on File: No service: No Current occupational status: disabled Meds Allergies Allergy/AdvReac Type Severity Reaction Status Date / Time No Known Allergies Allergy Verified 06/03/21 10:09 Active Medications: Current Medications Acetaminophen (Acetaminophen 325 Mg Tablet) 650 mg PO Q6H PRN PRN Reason: Pain, Mild (Pain Scale 1-3) Last Admin: 06/04/21 09:15 Dose: 650 mg Documented by: Albuterol/Ipratropium (Albuterol/Iprat 2.5/0.5mg 3 Ml Ampul.Neb) 3 ml INHALE RQ6H WHILE AWAKE [facility] Ferrous Sulfate (Ferrous Sulfate 324 Mg Tablet.Dr) 324 mg PO DAILY [facility] Last Admin: 06/05/21 07:54 Dose: Not Given Documented by: Finasteride (Finasteride 5 Mg Tablet) 5 mg PO BEDTIME [facility] Last Admin: 06/04/21 21:24 Dose: 5 mg Documented by: Gabapentin (Gabapentin 100 Mg Capsule) 200 mg PO TID [facility] Last Admin: 06/05/21 07:54 Dose: Not Given Documented by: Heparin Sodium (Porcine) (Heparin Sodium,Porcine 5,000 Unit/Ml Vial) 1,800 unit 40 unit/kg (1800 unit) IVPUSH PROTOCOL BOLUS PRN; Protocol PRN Reason: 40 unit/kg - Heparin Protocol Last Admin: 06/05/21 02:06 Dose: 1,800 unit Documented by: Heparin Sodium (Porcine) (Heparin Sodium,Porcine 5,000 Unit/Ml Vial) 3,600 unit 80 unit/kg (3600 unit) IVPUSH PROTOCOL BOLUS PRN; Protocol PRN Reason: 80 unit/kg - Heparin Protocol Piperacillin Sod/Tazobactam (Sod 3.375 gm/ Sodium Chloride) 50 mls @ 100 mls/hr IV Q6H [facility] Last Infusion: 06/05/21 07:53 Dose: Infused Documented by: Sodium Chloride (Ns) 1,000 mls @ 100 mls/hr IVCONT .Q10H [facility] Last Admin: 06/05/21 00:01 Dose: 100 mls/hr Documented by: Heparin Sodium/Sodium Chloride () 25,000 unit in 250 mls @ 0 mls/hr IVCONT .Q0M [facility]; Protocol Last Admin: 06/05/21 08:26 Dose: 14 units/kg/hr, 6.35 mls/hr Documented by: Vancomycin HCl 750 mg/ Sodium (Chloride) 265 mls @ 265 mls/hr IV Q12H [facility] Last Infusion: 06/05/21 09:51 Dose: Infused Documented by: Morphine Sulfate (Morphine Sulfate 2 Mg/Ml Cartridge) 2 mg IVPUSH Q4H PRN; Protocol PRN Reason: Pain, Severe (Pain Scale 7-10) Last Admin: 06/05/21 13:14 Dose: 2 mg Documented by: Morphine Sulfate (Morphine Sulfate 4 Mg/Ml Cartridge) 4 mg IVPUSH Q2H PRN; Protocol PRN Reason: Pain, Severe (Pain Scale 7-10) Last Admin: 06/04/21 23:59 Dose: 4 mg Documented by: Omeprazole (Omeprazole 20 Mg Capsule.Dr) 20 mg PO BID@0630,1630 [facility] Last Admin: 06/05/21 06:40 Dose: Not Given Documented by: Ondansetron HCl (Ondansetron Hcl 4 Mg/2 Ml Vial) 4 mg IVPUSH Q8H PRN PRN Reason: Nausea and Vomiting Oxycodone HCl (Oxycodone Hcl Immed Release 5 Mg Tablet) 5 mg PO Q6H PRN PRN Reason: Pain, Severe (Pain Scale 7-10) Oxycodone HCl (Oxycodone Hcl Immed Release 5 Mg Tablet) 5 mg PO DAILY [facility] Last Admin: 06/05/21 07:54 Dose: Not Given Documented by: Pharmacy Consult (Consult Rx Perform Med Rec) 1 each MISCELLANE ONCE PRN PRN Reason: Consult order Pharmacy Consult (Consult Rx Vancomycin Dosing) 1 each MISCELLANE DAILY PRN PRN Reason: Consult order Sodium Chloride (0.9 % Sodium Chloride Flush 3 Ml Syringe) 3 ml IVFLUSH QSHIFT [facility] Last Admin: 06/05/21 07:56 Dose: Not Given Documented by: Sucralfate (Sucralfate 1 Gm Tablet) 1 gm PO BIDAC [facility] Last Admin: 06/05/21 07:06 Dose: Not Given Documented by: Home Medications Medication Instructions Recorded Confirmed Last Taken Type ferrous sulfate 325 mg (65 mg 325 mg PO DAILY 01/13/21 06/03/21 Unknown History iron) tablet (FeroSul) gabapentin 100 mg capsule 200 mg PO TID 06/03/21 06/03/21 06/03/21 History Physical Exam Vital Signs: Vital Signs: Last Vital Signs Temp 98.4 F 06/04/21 10:49 Pulse 66 06/05/21 10:00 Resp 19 06/05/21 10:00 BP 136/68 06/05/21 10:00 Pulse Ox 96 06/05/21 10:00 BMI result Body Mass Index 14.8 Stable Const: General: comfortable, no acute distress, alert and awake Orientation/consciousness: patient oriented x3 HENMT: Head: Yes normal to inspection General nose exam: No nasal polyps present and No nasal discharge present Face and sinus: Yes sinuses nontender Mouth: oropharynx normal Throat: Yes posterior oropharynx normal Eyes: General: appearance normal, both eyes and all related structures Neck: Neck: Yes normal visual inspection, Yes no lymphadenopathy, Yes trachea midline and Yes no JVD Thyroid: Thyroid normal Chest: Chest palpation & inspection: normal inspection of the chest, normal palpation of entire chest wall and no tenderness Resp: Other: Percussion note and, breath sounds are slightly distant, And prolonged expiratory phase but, no wheezes or rhonchi are heard Cardio: Palpation: normal PMI Rate: regular rate Rhythm: regular rhythm Heart sounds: no gallops and no murmurs GI: Palpation (GI): Soft to palpation, nontender, No hepatosplenomegaly present and no masses Auscultation: normal bowel sounds Back/Spine/Pelvis: Thoracic/Lumbar Spine: thoracic and lumbar spine normal to inspection Skin: General skin exam: no rashes or lesions noted Lesions: lesion noted (Right foot necrotic ulcers noted) Neuro: General: patient oriented x3 and no focal motor deficits Cranial nerves: Yes CN's II-XII intact bilaterally Extrem: Other: Left above knee amputation status. On the right side no pulses. Right foot cold with necrotic ulcers of the toes Psych: Speech and movement: Normal speech and movement present Results Laboratory Findings CBC and BMP: 06/05/21 05:44 06/05/21 07:03 ABG, PT/INR, D-dimer: PT/INR, D-dimer PT 12.3 SEC (9.9-13.0) 06/05/21 05:44 INR 1.1 (0.9-1.1) 06/05/21 05:44 Abnormal lab findings: Abnormal Labs 06/03/21 06/03/21 06/03/21 14:32 14:32 16:46 RBC 4.09 L Hgb 12.1 L Hct 38.5 L RDW 19.8 H MPV 8.6 L Neut % (Auto) 75.2 H Lymph % (Auto) 15.7 L PTT (Heparin Protocol) VBG pH Sodium Carbon Dioxide BUN 17 H C-Reactive Protein 1.53 H Vancomycin Trough 06/04/21 06/04/21 06/04/21 12:13 12:13 12:13 RBC 3.71 L Hgb 11.1 L Hct 34.4 L RDW 19.7 H MPV 9.0 L Neut % (Auto) Lymph % (Auto) PTT (Heparin Protocol) 37.7 L VBG pH Sodium Carbon Dioxide 21 L BUN C-Reactive Protein Vancomycin Trough 06/05/21 06/05/21 06/05/21 00:50 05:44 05:44 RBC 3.56 L Hgb 10.8 L Hct 32.7 L RDW 19.7 H MPV 8.5 L Neut % (Auto) Lymph % (Auto) PTT (Heparin Protocol) 41.6 L D VBG pH Sodium Carbon Dioxide BUN C-Reactive Protein Vancomycin Trough 7.6 L 06/05/21 06/05/21 06/05/21 07:03 07:03 11:05 RBC Hgb Hct RDW MPV Neut % (Auto) Lymph % (Auto) PTT (Heparin Protocol) 82.9 H D VBG pH 7.47 H Sodium 134 L Carbon Dioxide BUN 6 L D C-Reactive Protein Vancomycin Trough Microbiology: Microbiology 06/03/21 16:46 Blood - Venous Blood Culture - Preliminary No growth after 24 hours. 06/03/21 16:46 Blood - Venous Blood Culture - Preliminary No growth after 24 hours. Diagnostic Findings Chest x-ray: report reviewed and image reviewed Assessment and Plan (1) Dyspnea: Status: Acute This patient is not physically active. So at present he does not experience any shortness of breath on exertion. At rest he denies having any significant shortness of breath or other symptoms. (2) Tobacco use disorder: Status: Acute (3) Pulmonary emphysema determined by X-ray: Status: Acute Chest x-ray shows hyperinflated lungs suggestive of pulmonary emphysema. Patient has had no pulmonary function test. Clinically I do not think he has any significant active obstructive disorder. I think his pulmonary status is stable, He has average surgical risk. Postoperatively should be watched for any respiratory distress. I have started him on DuoNeb updrafts Q 6 hours, just to optimize his pulmonary status. Will be glad to monitor him closely in the postoperative.. Procedures Date of Service Date of Service: 06/05/21
[2021-06-05] MEDS: Albuterol/Iprat 2.5/0.5MG 3 ML AMPUL.NEB INHALE ×2 (14:40→20:13)
--- NOTE | 2021-06-05 15:01 | MHC.CM.PN ---
pt lives c his mother and father in their condo in [place]. his mother (95 y/0) helps him c some of his needs such as transportation which [place] be the case [place] if [place] goes home. his father is currently on hospice c [facility]. the mother also cares for him. pt uses a walker c ambulation. if the patient has amputative surgery then he will likely need rehab, when his L AKA was done [facility]. he would like to go there again if he needs it , a ref. for [facility] has been made. if patient goes home at [facility] then he would like [facility] for which a ref. has been made. pending on the course of this hospitalization dc plan will be home c [facility] vs. [place]. cm to cont. to follow.
[2021-06-05] MEDS: Sucralfate 1 GM TABLET PO (17:12)
[2021-06-05] MEDS: Omeprazole 20 MG CAPSULE.DR PO (17:12)
[2021-06-05] MEDS: Gabapentin 100 MG CAPSULE 200 MG PO ×2 (17:12→22:35)
[2021-06-05 17:41] LABS: Alanine Aminotransferase 9 U/L (0-40); Albumin Level 3.2 g/dL (3.5-5.0); Alkaline Phosphatase 103 U/L (39-117); Aspartate Amino Transferase 50 U/L (5-37); Bilirubin Direct 0.2 mg/dL (0.0-0.5); Bilirubin Total 0.3 mg/dL (0.0-1.0); Total Protein 5.6 g/dL (6.5-8.0)
--- NOTE | 2021-06-05 17:44 | PC.NURSE ---
Report given to RN for assigned room 452. Pt to be brought upstairs.
[2021-06-05 18:56] LABS: PTT Heparin Drip 56.7 SEC (53-77.9)
[2021-06-05] MEDS: Atorvastatin Calcium 80 MG TABLET PO (22:35)
[2021-06-05] MEDS: Finasteride 5 MG TABLET PO (22:36)
[2021-06-06] MEDS: Piperacillin Sodium/Tazobactam 3.375 GM in 0.9 % Sodium Chloride 50 ML IV ×4 (00:39→18:55)
[2021-06-06] MEDS: 0.9 % Sodium Chloride Flush 3 ML SYRINGE IVFLUSH ×4 (00:40→21:56)
[2021-06-06] MEDS: Heparin Sodium,Porcine/1/2NS 25,000 UNIT/250 ML IV.SOLN 6.35 UNIT IVCONT (00:52)
[2021-06-06 03:02] VITALS: BP 146/61; PULSE 85; RESP 20; TEMP 36.8; O2SAT 94
[2021-06-06] MEDS: Omeprazole 20 MG CAPSULE.DR PO ×2 (05:46→17:03)
[2021-06-06] MEDS: Morphine Sulfate 2 MG/ML CARTRIDGE IVPUSH (05:53)
[2021-06-06 06:53] LABS: Hematocrit 31.7 % (42.0-52.0); Hemoglobin 10.4 g/dl (14.0-18.0); Mean Corpuscular HGB Conc 32.8 g/dl (31.0-36.0); Mean Corpuscular Volume 91.4 fL (80.0-98.0); Mean Platelet Volume 9.2 fL (9.4-12.4); Platelet Count 263 X10*3/uL (160-400); Red Blood Count 3.47 X10*6/uL (4.60-5.80); Red Cell Distribution Width 19.7 % (11.0-16.0); White Blood Count 10.2 X10*3/uL (4.8-10.8)
[2021-06-06 06:57] LABS: PTT Heparin Drip 57.6 SEC (53-77.9)
[2021-06-06 07:12] LABS: Anion Gap 16 (12-20); Blood Urea Nitrogen 7 mg/dL (9-16); Calcium 8.3 mg/dL (8.4-10.2); Carbon Dioxide 24 mmol/L (22-29); Chloride 100 mmol/L (96-108); Cholesterol 121 mg/dL; Creatinine Clr Calc Pharmacy 77.4; Estimated Glomerular Filt Rate > 60; Glucose Random 80 mg/dL (60-115); HDL Cholesterol 38 mg/dL; LDL Cholesterol Calculated 65 mg/dl; Potassium 3.7 mmol/L (3.3-5.1); Sodium 136 mmol/L (135-145); Triglycerides 92 mg/dL
[2021-06-06 07:19] VITALS: BP 140/72; PULSE 64; RESP 20; TEMP 37.1; O2SAT 97
--- NOTE | 2021-06-06 08:23 | HO.PM.IMPN ---
Subjective Subjective Date of Service: 06/06/21 Interval History: critical limb ischemia , aortic thrombus Review of Systems has leg pain, denies any chest pain or shortness of breath or abdominal pain or fever or chills denies any blurred vision or weakness Physical Exam Vital Signs: Vital Signs: Last Vital Signs Temp 98.7 F 06/06/21 07:19 Pulse 64 06/06/21 07:19 Resp 20 06/06/21 07:19 BP 140/72 H 06/06/21 07:19 Pulse Ox 97 06/06/21 07:19 BMI result Body Mass Index 14.7 Appearance: Alert.? Oriented X3.? not in distress.? cvs: rrr, [id number] , no murmur res: clear to auscultation ,no rhonchii or wheezing abd: no rebound or guarding ,nt, bs present. ext: left bka , right foot - bluish discoloration seems progressing more under the toes area of foot -especially in first to 3 rd toes . neuro: axo3 , nonfocal. Objective Data Active Medications Acetaminophen (Acetaminophen 325 Mg Tablet) 650 mg PO Q6H PRN PRN Reason: Pain, Mild (Pain Scale 1-3) Last Admin: 06/04/21 09:15 Dose: 650 mg Documented by: FAROOQ Albuterol/Ipratropium (Albuterol/Iprat 2.5/0.5mg 3 Ml Ampul.Neb) 3 ml INHALE RQ6H WHILE AWAKE [facility] Last Admin: 06/06/21 07:34 Dose: Not Given Documented by: SHAQUILLE Non-Admin Reason: Patient Asleep Atorvastatin Calcium (Atorvastatin Calcium 80 Mg Tablet) 80 mg PO BEDTIME [facility] Last Admin: 06/05/21 22:35 Dose: 80 mg Documented by: FESTUS Ferrous Sulfate (Ferrous Sulfate 324 Mg Tablet.Dr) 324 mg PO DAILY [facility] Last Admin: 06/05/21 07:54 Dose: Not Given Documented by: MARCUS Non-Admin Reason: NPO Finasteride (Finasteride 5 Mg Tablet) 5 mg PO BEDTIME [facility] Last Admin: 06/05/21 22:36 Dose: 5 mg Documented by: FESTUS Gabapentin (Gabapentin 100 Mg Capsule) 200 mg PO TID [facility] Last Admin: 06/05/21 22:35 Dose: 200 mg Documented by: FESTUS Heparin Sodium (Porcine) (Heparin Sodium,Porcine 5,000 Unit/Ml Vial) 1,800 unit 40 unit/kg (1800 unit) IVPUSH PROTOCOL BOLUS PRN; Protocol PRN Reason: 40 unit/kg - Heparin Protocol Last Admin: 06/05/21 02:06 Dose: 1,800 unit Documented by: LENNIE Heparin Sodium (Porcine) (Heparin Sodium,Porcine 5,000 Unit/Ml Vial) 3,600 unit 80 unit/kg (3600 unit) IVPUSH PROTOCOL BOLUS PRN; Protocol PRN Reason: 80 unit/kg - Heparin Protocol Piperacillin Sod/Tazobactam (Sod 3.375 gm/ Sodium Chloride) 50 mls @ 100 mls/hr IV Q6H [facility] Last Infusion: 06/06/21 06:35 Dose: 0 mls/hr Documented by: AMY Heparin Sodium/Sodium Chloride () 25,000 unit in 250 mls @ 0 mls/hr IVCONT .Q0M [facility]; Protocol Last Titration: 06/06/21 07:35 Dose: 14 units/kg/hr, 6.35 mls/hr Documented by: GEORGE Cosigned by: AMY Vancomycin HCl 750 mg/ Sodium (Chloride) 265 mls @ 265 mls/hr IV Q12H [facility] Last Infusion: 06/05/21 23:36 Dose: 0 mls/hr Documented by: FESTUS Morphine Sulfate (Morphine Sulfate 2 Mg/Ml Cartridge) 2 mg IVPUSH Q4H PRN; Protocol PRN Reason: Pain, Severe (Pain Scale 7-10) Last Admin: 06/06/21 05:53 Dose: 2 mg Documented by: AMY Morphine Sulfate (Morphine Sulfate 4 Mg/Ml Cartridge) 4 mg IVPUSH Q2H PRN; Protocol PRN Reason: Pain, Severe (Pain Scale 7-10) Last Admin: 06/04/21 23:59 Dose: 4 mg Documented by: LENNIE Omeprazole (Omeprazole 20 Mg Capsule.Dr) 20 mg PO BID@0630,1630 [facility] Last Admin: 06/06/21 05:46 Dose: 20 mg Documented by: AMY Ondansetron HCl (Ondansetron Hcl 4 Mg/2 Ml Vial) 4 mg IVPUSH Q8H PRN PRN Reason: Nausea and Vomiting Oxycodone HCl (Oxycodone Hcl Immed Release 5 Mg Tablet) 5 mg PO Q6H PRN PRN Reason: Pain, Severe (Pain Scale 7-10) Oxycodone HCl (Oxycodone Hcl Immed Release 5 Mg Tablet) 5 mg PO DAILY [facility] Last Admin: 06/05/21 07:54 Dose: Not Given Documented by: MARCUS Non-Admin Reason: NPO Pharmacy Consult (Consult Rx Perform Med Rec) 1 each MISCELLANE ONCE PRN PRN Reason: Consult order Pharmacy Consult (Consult Rx Vancomycin Dosing) 1 each MISCELLANE DAILY PRN PRN Reason: Consult order Sodium Chloride (0.9 % Sodium Chloride Flush 3 Ml Syringe) 3 ml IVFLUSH QSHIFT [facility] Last Admin: 06/06/21 00:40 Dose: 3 ml Documented by: AMY Sucralfate (Sucralfate 1 Gm Tablet) 1 gm PO BIDAC [facility] Last Admin: 06/05/21 17:12 Dose: 1 gm Documented by: MARCUS Labs CBC & Chem 7: 06/06/21 05:55 06/06/21 05:55 Labs: Laboratory Results - last 24 hr 06/05/21 06/05/21 06/05/21 07:03 11:05 13:04 MCV MCH MCHC RDW Plt Count MPV Absolute Nucleated RBC Nucleated RBC % (auto) PTT (Heparin Protocol) 66.5 VBG pH 7.47 H VBG pCO2 30 VBG pO2 89 VBG HCO3 22 VBG O2 Saturation 98.0 VBG Base Excess 0.1 Anion Gap Estim Creat Clear Calc Estimated GFR Random Glucose Calcium Total Bilirubin 0.3 Direct Bilirubin 0.2 AST 50 H D ALT 9 Alkaline Phosphatase 103 D Total Protein 5.6 L Albumin 3.2 L Triglycerides Cholesterol LDL Cholesterol, Calc HDL Cholesterol 06/05/21 06/06/21 06/06/21 18:35 05:55 05:55 MCV 91.4 MCH 30.0 MCHC 32.8 RDW 19.7 H Plt Count 263 MPV 9.2 L Absolute Nucleated RBC 0.000 Nucleated RBC % (auto) 0.0 PTT (Heparin Protocol) 56.7 VBG pH VBG pCO2 VBG pO2 VBG HCO3 VBG O2 Saturation VBG Base Excess Anion Gap Estim Creat Clear Calc Cancelled Estimated GFR Cancelled Random Glucose Calcium Total Bilirubin Direct Bilirubin AST ALT Alkaline Phosphatase Total Protein Albumin Triglycerides Cholesterol LDL Cholesterol, Calc HDL Cholesterol 06/06/21 06/06/21 05:55 05:55 MCV MCH MCHC RDW Plt Count MPV Absolute Nucleated RBC Nucleated RBC % (auto) PTT (Heparin Protocol) 57.6 VBG pH VBG pCO2 VBG pO2 VBG HCO3 VBG O2 Saturation VBG Base Excess Anion Gap 16 Estim Creat Clear Calc 77.4 Estimated GFR > 60 Random Glucose 80 Calcium 8.3 L Total Bilirubin Direct Bilirubin AST ALT Alkaline Phosphatase Total Protein Albumin Triglycerides 92 Cholesterol 121 LDL Cholesterol, Calc 65 HDL Cholesterol 38 Microbiology Microbiology Results: Microbiology 06/03/21 16:46 Blood Culture - Preliminary Blood - Venous No growth after 48 hours. 06/03/21 16:46 Blood Culture - Preliminary Blood - Venous No growth after 48 hours. Assessment and Plan (1) Aortic thrombus: Status: Acute (2) Gangrene: Status: Acute Assessment and Plan: 60 old man admitted ischemia.? History left critical limb ischemia with AKA in December this year.? He was sent Dr. Yoo office to the ER for further workup.? 1.Critical limb ischemia and aortic thrombosis : Appears to be infected as well, will continue vancomycin ? Angio revealed severe peripheral vascular disease, CT scan ordered by vascular ? Recommended to start patient on heparin drip ,? Monitor PT INR,Pain management, moniter on tele will needs vasular surgery for aortic thrombosis -need cardio and pulm clearence for above. ? In the anticipation of surgery patient was seen by cardio and pulmonary: ? Cardio recommended:? Patient needs to get myocardial perfusion study? to decide further course of surgery.? ? Also recommended to add ? High dose statin. ?pulmonary: Recommended currently COPD tinoco stable,? added DuoNebs and thought to be average risk. 2.cellulitis/Gangrene. Foot x-ray shows early gas formation with will likely need amputation possible? need vascular intervention since has significant pvd. 3.Normocytic anemia No signs of bleeding or melana as per patient in 12/09 had workup-EGD showed ulcerative and erosive gastroduodenitis,? esophagitis, Nj's esophagus, nonreactive for H pylori. h/h stable continue ppi and sucralfate. Follow CBC DVT prophylaxis with heparin Quality Stroke Does the patient have a stroke diagnosis?: No VTE Prior VTE?: No VTE Risk Level:: Medical - moderate - high VTE Device Contraindication: Treatment Not Indicated VTE Drug Contraindication: N/A - Med Ordered
[2021-06-06] MEDS: Gabapentin 100 MG CAPSULE 200 MG PO ×3 (09:52→21:56)
[2021-06-06] MEDS: Ferrous Sulfate 324 MG TABLET.DR PO (09:52)
[2021-06-06] MEDS: oxyCODONE HCl Immed Release 5 MG TABLET PO (09:52)
[2021-06-06] MEDS: Sucralfate 1 GM TABLET PO ×2 (09:53→17:03)
[2021-06-06] MEDS: vancomycin HCL 750 MG in 0.9 % Sodium Chloride 250 ML 265 MG IV (09:53)
[2021-06-06 11:20] VITALS: BP 150/85; PULSE 80; RESP 20; O2SAT 98
[2021-06-06] MEDS: Morphine Sulfate 4 MG/ML CARTRIDGE IVPUSH ×3 (11:49→22:00)
--- NOTE | 2021-06-06 12:15 | W.PM.IDCN ---
History of Present Illness Data of Consult Service Date: 06/06/21 Requesting physician: Bharti Singh Primary Care Provider: MD JOHN Martel Reason for consult: gangrene feet He presents with darkened lower extremities He has no fever or chills He is seeing Vascular now Review of Systems Review of Systems: Yes all other systems are reviewed and are negative PMFSH Past Medical History Medical History COVID-19 Left above-knee amputee Peripheral vascular disease Pulmonary emphysema determined by X-ray Tobacco use disorder Family History Family History Mother No problems noted. Father COPD (chronic obstructive pulmonary disease) Family history: reviewed and not pertinent Surgical History Surgical History H/O esophagogastroduodenoscopy History of amputation below knee History of tonsillectomy Social History Social History Household Members: Family Household Members Other:: Mom and dad Housing: House Do you presently have visiting nurse or other home services: No Alcohol intake: former Patient Tobacco Use Status: Current everyday Tobacco user Tobacco use type: Cigarette Cigarettes Per Day: 7 Second Hand Smoke Exposure: No Substance Use Type: Marijuana service: No Current occupational status: disabled Meds Allergies Allergy/AdvReac Type Severity Reaction Status Date / Time No Known Allergies Allergy Verified 06/03/21 10:09 Active Medications: Current Medications Acetaminophen (Acetaminophen 325 Mg Tablet) 650 mg PO Q6H PRN PRN Reason: Pain, Mild (Pain Scale 1-3) Last Admin: 06/04/21 09:15 Dose: 650 mg Documented by: Albuterol/Ipratropium (Albuterol/Iprat 2.5/0.5mg 3 Ml Ampul.Neb) 3 ml INHALE RQ6H WHILE AWAKE [facility] Last Admin: 06/06/21 07:34 Dose: Not Given Documented by: Atorvastatin Calcium (Atorvastatin Calcium 80 Mg Tablet) 80 mg PO BEDTIME [facility] Last Admin: 06/05/21 22:35 Dose: 80 mg Documented by: Ferrous Sulfate (Ferrous Sulfate 324 Mg Tablet.) 324 mg PO DAILY [facility] Last Admin: 06/06/21 09:52 Dose: 324 mg Documented by: Finasteride (Finasteride 5 Mg Tablet) 5 mg PO BEDTIME [facility] Last Admin: 06/05/21 22:36 Dose: 5 mg Documented by: Gabapentin (Gabapentin 100 Mg Capsule) 200 mg PO TID [facility] Last Admin: 06/06/21 09:52 Dose: 200 mg Documented by: Heparin Sodium (Porcine) (Heparin Sodium,Porcine 5,000 Unit/Ml Vial) 1,800 unit 40 unit/kg (1800 unit) IVPUSH PROTOCOL BOLUS PRN; Protocol PRN Reason: 40 unit/kg - Heparin Protocol Last Admin: 06/05/21 02:06 Dose: 1,800 unit Documented by: Heparin Sodium (Porcine) (Heparin Sodium,Porcine 5,000 Unit/Ml Vial) 3,600 unit 80 unit/kg (3600 unit) IVPUSH PROTOCOL BOLUS PRN; Protocol PRN Reason: 80 unit/kg - Heparin Protocol Piperacillin Sod/Tazobactam (Sod 3.375 gm/ Sodium Chloride) 50 mls @ 100 mls/hr IV Q6H [facility] Last Admin: 06/06/21 11:50 Dose: 100 mls/hr Documented by: Heparin Sodium/Sodium Chloride () 25,000 unit in 250 mls @ 0 mls/hr IVCONT .Q0M [facility]; Protocol Last Titration: 06/06/21 07:35 Dose: 14 units/kg/hr, 6.35 mls/hr Documented by: Vancomycin HCl 750 mg/ Sodium (Chloride) 265 mls @ 265 mls/hr IV Q12H [facility] Last Infusion: 06/06/21 10:55 Dose: Infused Documented by: Morphine Sulfate (Morphine Sulfate 2 Mg/Ml Cartridge) 2 mg IVPUSH Q4H PRN; Protocol PRN Reason: Pain, Severe (Pain Scale 7-10) Last Admin: 06/06/21 05:53 Dose: 2 mg Documented by: Morphine Sulfate (Morphine Sulfate 4 Mg/Ml Cartridge) 4 mg IVPUSH Q2H PRN; Protocol PRN Reason: Pain, Severe (Pain Scale 7-10) Last Admin: 06/06/21 11:49 Dose: 4 mg Documented by: Omeprazole (Omeprazole 20 Mg Capsule.) 20 mg PO BID@0630,1630 [facility] Last Admin: 06/06/21 05:46 Dose: 20 mg Documented by: Ondansetron HCl (Ondansetron Hcl 4 Mg/2 Ml Vial) 4 mg IVPUSH Q8H PRN PRN Reason: Nausea and Vomiting Oxycodone HCl (Oxycodone Hcl Immed Release 5 Mg Tablet) 5 mg PO Q6H PRN PRN Reason: Pain, Severe (Pain Scale 7-10) Oxycodone HCl (Oxycodone Hcl Immed Release 5 Mg Tablet) 5 mg PO DAILY [facility] Last Admin: 06/06/21 09:52 Dose: 5 mg Documented by: Pharmacy Consult (Consult Rx Perform Med Rec) 1 each MISCELLANE ONCE PRN PRN Reason: Consult order Pharmacy Consult (Consult Rx Vancomycin Dosing) 1 each MISCELLANE DAILY PRN PRN Reason: Consult order Sodium Chloride (0.9 % Sodium Chloride Flush 3 Ml Syringe) 3 ml IVFLUSH QSHIFT [facility] Last Admin: 06/06/21 09:53 Dose: 3 ml Documented by: Sucralfate (Sucralfate 1 Gm Tablet) 1 gm PO BIDAC [facility] Last Admin: 06/06/21 09:53 Dose: 1 gm Documented by: Home Medications Medication Instructions Recorded Confirmed Last Taken Type ferrous sulfate 325 mg (65 mg 325 mg PO DAILY 01/13/21 06/03/21 Unknown History iron) tablet (FeroSul) gabapentin 100 mg capsule 200 mg PO TID 06/03/21 06/03/21 06/03/21 History Physical Exam Vital Signs: Vital Signs: Last Vital Signs Temp 98.7 F 06/06/21 07:19 Pulse 80 06/06/21 11:20 Resp 20 06/06/21 11:20 BP 150/85 H 06/06/21 11:20 Pulse Ox 98 06/06/21 11:20 BMI result Body Mass Index 14.7 Const: General: cooperative HENMT: Head: Yes normal to inspection Mouth: Normal oral and palatal mucosa present Eyes: General: appearance normal, both eyes and all related structures Resp: Effort & Inspection: normal respiratory effort Cardio: Rate: regular rate Rhythm: regular rhythm GI: Palpation (GI): Soft to palpation and nontender Extrem: Other: darkened lower extremities Results Labs CBC & Chem 7: 06/06/21 05:55 06/06/21 05:55 Labs: Short CBC 06/06/21 Range/Units 05:55 WBC 10.2 (4.8-10.8) X10*3/uL Hgb 10.4 L (14.0-18.0) g/dl Hct 31.7 L (42.0-52.0) % Plt Count 263 (160-400) X10*3/uL BMP 06/06/21 06/06/21 05:55 05:55 Sodium 136 Potassium 3.7 Chloride 100 Carbon Dioxide 24 BUN 7 L Creatinine Cancelled 0.61 Calcium 8.3 L Liver Function 06/05/21 Range/Units 07:03 Total Bilirubin 0.3 (0.0-1.0) mg/dL Direct Bilirubin 0.2 (0.0-0.5) mg/dL AST 50 H D (5-37) U/L ALT 9 (0-40) U/L Alkaline Phosphatase 103 D (39-117) U/L Albumin 3.2 L (3.5-5.0) g/dL Microbiology Microbiology Results: Microbiology 06/03/21 16:46 Blood - Venous Blood Culture - Preliminary No growth after 48 hours. 06/03/21 16:46 Blood - Venous Blood Culture - Preliminary No growth after 48 hours. Assessment and Plan (1) Gangrene: Status: Acute there is possible gram negative/gram positive organisms (2) Peripheral vascular disease: Status: Acute Would continue antibiotics pending blood cultures If necrotic areas remain of bone i.e. osteomyelitis would give six weeks IV antibiotics
[2021-06-06 13:16] VITALS: BMI 14.7
--- NOTE | 2021-06-06 13:24 | MHC.CLN ---
PT IS SEVERELY MALNOURISHED PT WITH MODERATELY DEPLETED SUBCUTANEOUS FAT AND MUSCLE MASS, 15% SIGNIFICANT WT LOSS R/T AMPUTATION AND CHRONIC POOR PO INTAKE DIET RX: LOW FAT-WILL CHANGE TO REGULAR R/T MALNUTRITION PT PENDING AMPUTATION SCHEDULED FOR WEDNESDAY RECOMMEND ENSURE TID TO INCREASE KCALS AND PROMOTE WOUND HEALING SUPP TO PROVIDE 1050KCALS, 39G PROTEIN MONITOR PO INTAKE CLOSELY SEE ALSO CLINICAL NUTRITION ASSESSMENT
--- NOTE | 2021-06-06 13:56 | P.PNVS_ITS ---
Subjective Subjective Date of Service: 06/06/21 Patient reports: no new complaints and feels better Interval history: Patient seen and examined. No events overnight. He appears to be doing significantly better now that he is transferred up to a full are bed. Pain is better controlled. Has undergone stress test part 1 yesterday and part 2 early this morning. He is resting comfortably in bed tolerating a diet. Physical Exam Vital Signs: Vital Signs: Last Vital Signs Temp 98.7 F 06/06/21 07:19 Pulse 80 06/06/21 11:20 Resp 20 06/06/21 11:20 BP 150/85 H 06/06/21 11:20 Pulse Ox 98 06/06/21 11:20 BMI result Body Mass Index 14.7 Const: General: cooperative, healthy appearing and no acute distress Orientation/consciousness: oriented to person, oriented to place and oriented to time HENMT: Head: Yes normal to inspection Neck: Carotids: no bruits Chest: Chest palpation & inspection: normal inspection of the chest Resp: Effort & Inspection: normal respiratory effort and able to speak in complete sentences Auscultation: clear to auscultation bilaterally Cardio: Rate: regular rate Heart sounds: S1 normal heart sound present and S2 normal heart sound present GI: Inspection: Yes normal to inspection Skin: General skin exam: no rashes or lesions noted Wounds: wounds noted (Right foot dorsum nonhealing ulcer) Neuro: General: oriented to person, oriented to place, oriented to time and CN's II-XI intact bilaterally Extrem: General: Yes normal to inspection, Yes full ROM and Yes no clubbing, cyanosis or edema Psych: Appearance: grossly normal and well kempt Speech and movement: Normal speech and movement present Affect: normal affect Progress Note: A&P Assessment and plan (1) Occlusion of terminal aorta: Status: Acute Assessment and Plan: In short patient has aortic occlusive disease. This has led to critical right limb ischemia leading to ulceration. Since he does have a left above knee amputation is critical that this limb be salvaged. He had an attempted endovascular intervention which was unsuccessful. He will require an open aortobifemoral bypass. Risks benefits complications were discussed in detail with the patient and the patient's mother including bleeding infection limb loss further occlusion and . Due to his overall status and comorbidities he is a known high risk. We are waiting final cardiac risk stratification. He is temporarily booked for Wednesday as this is urgent. Pulmonary input appreciated. He is being maintained on a heparin drip. Pulmonary input appreciated. Thank you to the hospitalist, virtualization engineer and Pulmonary is teams further assistance in his care. Fall Risk Details Current Medications: Current Medications Acetaminophen (Acetaminophen 325 Mg Tablet) 650 mg PO Q6H PRN PRN Reason: Pain, Mild (Pain Scale 1-3) Last Admin: 06/04/21 09:15 Dose: 650 mg Documented by: Albuterol/Ipratropium (Albuterol/Iprat 2.5/0.5mg 3 Ml Ampul.Neb) 3 ml INHALE RQ6H WHILE AWAKE [facility] Last Admin: 06/06/21 07:34 Dose: Not Given Documented by: Atorvastatin Calcium (Atorvastatin Calcium 80 Mg Tablet) 80 mg PO BEDTIME [facility] Last Admin: 06/05/21 22:35 Dose: 80 mg Documented by: Ferrous Sulfate (Ferrous Sulfate 324 Mg Tablet.) 324 mg PO DAILY [facility] Last Admin: 06/06/21 09:52 Dose: 324 mg Documented by: Finasteride (Finasteride 5 Mg Tablet) 5 mg PO BEDTIME [facility] Last Admin: 06/05/21 22:36 Dose: 5 mg Documented by: Gabapentin (Gabapentin 100 Mg Capsule) 200 mg PO TID [facility] Last Admin: 06/06/21 09:52 Dose: 200 mg Documented by: Heparin Sodium (Porcine) (Heparin Sodium,Porcine 5,000 Unit/Ml Vial) 1,800 unit 40 unit/kg (1800 unit) IVPUSH PROTOCOL BOLUS PRN; Protocol PRN Reason: 40 unit/kg - Heparin Protocol Last Admin: 06/05/21 02:06 Dose: 1,800 unit Documented by: Heparin Sodium (Porcine) (Heparin Sodium,Porcine 5,000 Unit/Ml Vial) 3,600 unit 80 unit/kg (3600 unit) IVPUSH PROTOCOL BOLUS PRN; Protocol PRN Reason: 80 unit/kg - Heparin Protocol Piperacillin Sod/Tazobactam (Sod 3.375 gm/ Sodium Chloride) 50 mls @ 100 mls/hr IV Q6H [facility] Last Admin: 06/06/21 11:50 Dose: 100 mls/hr Documented by: Heparin Sodium/Sodium Chloride () 25,000 unit in 250 mls @ 0 mls/hr IVCONT .Q0M [facility]; Protocol Last Titration: 06/06/21 07:35 Dose: 14 units/kg/hr, 6.35 mls/hr Documented by: Vancomycin HCl 750 mg/ Sodium (Chloride) 265 mls @ 265 mls/hr IV Q12H [facility] Last Infusion: 06/06/21 10:55 Dose: Infused Documented by: Morphine Sulfate (Morphine Sulfate 2 Mg/Ml Cartridge) 2 mg IVPUSH Q4H PRN; Protocol PRN Reason: Pain, Severe (Pain Scale 7-10) Last Admin: 06/06/21 05:53 Dose: 2 mg Documented by: Morphine Sulfate (Morphine Sulfate 4 Mg/Ml Cartridge) 4 mg IVPUSH Q2H PRN; Protocol PRN Reason: Pain, Severe (Pain Scale 7-10) Last Admin: 06/06/21 11:49 Dose: 4 mg Documented by: Omeprazole (Omeprazole 20 Mg Capsule.) 20 mg PO BID@0630,1630 [facility] Last Admin: 06/06/21 05:46 Dose: 20 mg Documented by: Ondansetron HCl (Ondansetron Hcl 4 Mg/2 Ml Vial) 4 mg IVPUSH Q8H PRN PRN Reason: Nausea and Vomiting Oxycodone HCl (Oxycodone Hcl Immed Release 5 Mg Tablet) 5 mg PO Q6H PRN PRN Reason: Pain, Severe (Pain Scale 7-10) Oxycodone HCl (Oxycodone Hcl Immed Release 5 Mg Tablet) 5 mg PO DAILY [facility] Last Admin: 06/06/21 09:52 Dose: 5 mg Documented by: Pharmacy Consult (Consult Rx Perform Med Rec) 1 each MISCELLANE ONCE PRN PRN Reason: Consult order Pharmacy Consult (Consult Rx Vancomycin Dosing) 1 each MISCELLANE DAILY PRN PRN Reason: Consult order Sodium Chloride (0.9 % Sodium Chloride Flush 3 Ml Syringe) 3 ml IVFLUSH QSHIFT [facility] Last Admin: 06/06/21 09:53 Dose: 3 ml Documented by: Sucralfate (Sucralfate 1 Gm Tablet) 1 gm PO BIDAC [facility] Last Admin: 06/06/21 09:53 Dose: 1 gm Documented by: Time Spent With Patient Time: Total time spent is greater than 50% in coordination of care (as documented) at patient's floor/unit and/or counseling patient: Time with patient: 25 - 35 minutes Procedures Date of Service Date of Service: 06/06/21 Quality Stroke Does the patient have a stroke diagnosis?: No VTE Prior VTE?: No VTE Risk Level:: Medical - moderate - high VTE Device Contraindication: Treatment Not Indicated VTE Drug Contraindication: N/A - Med Ordered
--- NOTE | 2021-06-06 14:43 | P.PNCA_ITS ---
Subjective Subjective Date of Service: 06/06/21 Principal diagnosis: Preoperative cardiovascular examination Interval history: Patient has no cardiac symptoms. Underwent myocardial perfusion imaging which is suggestive of underlying multivessel coronary artery disease. Review of Systems Review of Systems Yes all other systems are reviewed and are negative Physical Exam Vital Signs: Last Vital Signs Temp 98.7 F 06/06/21 07:19 Pulse 80 06/06/21 11:20 Resp 20 06/06/21 11:20 BP 150/85 H 06/06/21 11:20 Pulse Ox 98 06/06/21 11:20 BMI result Body Mass Index 14.7 Const General: cooperative, comfortable and no acute distress Nutritional Appearance: underweight Orientation/consciousness: patient oriented x3 Resp Effort & Inspection: normal respiratory effort Auscultation: clear to auscultation bilaterally and diminished lung sounds Cardio Jugular venous distension: no JVD Palpation: normal PMI Rate: regular rate Rhythm: regular rhythm Heart sounds: S1 normal heart sound present, S2 normal heart sound present, no click, no gallops and no murmurs Neuro General: patient oriented x3 and no focal motor deficits Objective Labs and Meds Result diagrams: 06/06/21 05:55 06/06/21 05:55 Lab results: Laboratory Results - last 24 hr 06/05/21 06/05/21 06/06/21 07:03 18:35 05:55 WBC RBC Hgb Hct MCV MCH MCHC RDW Plt Count MPV Absolute Nucleated RBC Nucleated RBC % (auto) PTT (Heparin Protocol) 56.7 Sodium Potassium Chloride Carbon Dioxide Anion Gap BUN Creatinine Cancelled Estim Creat Clear Calc Cancelled Estimated GFR Cancelled Random Glucose Calcium Total Bilirubin 0.3 Direct Bilirubin 0.2 AST 50 H D ALT 9 Alkaline Phosphatase 103 D Total Protein 5.6 L Albumin 3.2 L Triglycerides Cholesterol LDL Cholesterol, Calc HDL Cholesterol 06/06/21 06/06/21 06/06/21 05:55 05:55 05:55 WBC 10.2 RBC 3.47 L Hgb 10.4 L Hct 31.7 L MCV 91.4 MCH 30.0 MCHC 32.8 RDW 19.7 H Plt Count 263 MPV 9.2 L Absolute Nucleated RBC 0.000 Nucleated RBC % (auto) 0.0 PTT (Heparin Protocol) 57.6 Sodium 136 Potassium 3.7 Chloride 100 Carbon Dioxide 24 Anion Gap 16 BUN 7 L Creatinine 0.61 Estim Creat Clear Calc 77.4 Estimated GFR > 60 Random Glucose 80 Calcium 8.3 L Total Bilirubin Direct Bilirubin AST ALT Alkaline Phosphatase Total Protein Albumin Triglycerides 92 Cholesterol 121 LDL Cholesterol, Calc 65 HDL Cholesterol 38 Imaging Radiologist's impression: Impressions Myocardial Perfusion Scan [facility] 06/06/21 09:45 Impression: 1. Myocardial perfusion imaging study shows multivessel disease with ischemia in LAD disease possibly in RCA territory as well as infarct in the circumflex 2. Gated LVEF is 43% 3. Transient ischemic dilatation not present but LV cavity is dilated EKG is nondiagnostic for ischemia Progress Note: A&P Assessment and plan (1) Pre-operative cardiovascular examination, high risk surgery: Status: Acute Assessment and Plan: Preoperative cardiovascular examination in a elderly man with multiple risk factors and myocardial perfusion imaging suggesting high risk coronary anatomy. Patient is high risk for undergoing this major surgery and should most likely be referred to a tertiary care center with advanced cardiac back up care if required. Most likely require coronary angiogram to evaluate for coronary anatomy prior to undergoing vascular surgery which is high risk. Continue aggressive medical management including high-intensity statin therapy, IV heparin and aspirin therapy. Plan was discussed with Dr. Pollock who would coordinate with tertiary care center for transfer of this patient. Fall Risk Details Current Medications: Current Medications Acetaminophen (Acetaminophen 325 Mg Tablet) 650 mg PO Q6H PRN PRN Reason: Pain, Mild (Pain Scale 1-3) Last Admin: 06/04/21 09:15 Dose: 650 mg Documented by: Albuterol/Ipratropium (Albuterol/Iprat 2.5/0.5mg 3 Ml Ampul.Neb) 3 ml INHALE RQ6H WHILE AWAKE [facility] Last Admin: 06/06/21 14:16 Dose: Not Given Documented by: Atorvastatin Calcium (Atorvastatin Calcium 80 Mg Tablet) 80 mg PO BEDTIME [facility] Last Admin: 06/05/21 22:35 Dose: 80 mg Documented by: Ferrous Sulfate (Ferrous Sulfate 324 Mg Tablet.) 324 mg PO DAILY [facility] Last Admin: 06/06/21 09:52 Dose: 324 mg Documented by: Finasteride (Finasteride 5 Mg Tablet) 5 mg PO BEDTIME [facility] Last Admin: 06/05/21 22:36 Dose: 5 mg Documented by: Gabapentin (Gabapentin 100 Mg Capsule) 200 mg PO TID [facility] Last Admin: 06/06/21 09:52 Dose: 200 mg Documented by: Heparin Sodium (Porcine) (Heparin Sodium,Porcine 5,000 Unit/Ml Vial) 1,800 unit 40 unit/kg (1800 unit) IVPUSH PROTOCOL BOLUS PRN; Protocol PRN Reason: 40 unit/kg - Heparin Protocol Last Admin: 06/05/21 02:06 Dose: 1,800 unit Documented by: Heparin Sodium (Porcine) (Heparin Sodium,Porcine 5,000 Unit/Ml Vial) 3,600 unit 80 unit/kg (3600 unit) IVPUSH PROTOCOL BOLUS PRN; Protocol PRN Reason: 80 unit/kg - Heparin Protocol Piperacillin Sod/Tazobactam (Sod 3.375 gm/ Sodium Chloride) 50 mls @ 100 mls/hr IV Q6H [facility] Last Admin: 06/06/21 11:50 Dose: 100 mls/hr Documented by: Heparin Sodium/Sodium Chloride () 25,000 unit in 250 mls @ 0 mls/hr IVCONT .Q0M [facility]; Protocol Last Titration: 06/06/21 07:35 Dose: 14 units/kg/hr, 6.35 mls/hr Documented by: Vancomycin HCl 750 mg/ Sodium (Chloride) 265 mls @ 265 mls/hr IV Q12H [facility] Last Infusion: 06/06/21 10:55 Dose: Infused Documented by: Morphine Sulfate (Morphine Sulfate 2 Mg/Ml Cartridge) 2 mg IVPUSH Q4H PRN; Protocol PRN Reason: Pain, Severe (Pain Scale 7-10) Last Admin: 06/06/21 05:53 Dose: 2 mg Documented by: Morphine Sulfate (Morphine Sulfate 4 Mg/Ml Cartridge) 4 mg IVPUSH Q2H PRN; Protocol PRN Reason: Pain, Severe (Pain Scale 7-10) Last Admin: 06/06/21 11:49 Dose: 4 mg Documented by: Omeprazole (Omeprazole 20 Mg Capsule.Dr) 20 mg PO BID@0630,1630 [facility] Last Admin: 06/06/21 05:46 Dose: 20 mg Documented by: Ondansetron HCl (Ondansetron Hcl 4 Mg/2 Ml Vial) 4 mg IVPUSH Q8H PRN PRN Reason: Nausea and Vomiting Oxycodone HCl (Oxycodone Hcl Immed Release 5 Mg Tablet) 5 mg PO Q6H PRN PRN Reason: Pain, Severe (Pain Scale 7-10) Oxycodone HCl (Oxycodone Hcl Immed Release 5 Mg Tablet) 5 mg PO DAILY [facility] Last Admin: 06/06/21 09:52 Dose: 5 mg Documented by: Pharmacy Consult (Consult Rx Perform Med Rec) 1 each MISCELLANE ONCE PRN PRN Reason: Consult order Pharmacy Consult (Consult Rx Vancomycin Dosing) 1 each MISCELLANE DAILY PRN PRN Reason: Consult order Sodium Chloride (0.9 % Sodium Chloride Flush 3 Ml Syringe) 3 ml IVFLUSH QSHIFT [facility] Last Admin: 06/06/21 09:53 Dose: 3 ml Documented by: Sucralfate (Sucralfate 1 Gm Tablet) 1 gm PO BIDAC [facility] Last Admin: 06/06/21 09:53 Dose: 1 gm Documented by: Time Spent With Patient Time: Total time spent is greater than 50% in coordination of care (as documented) at patient's floor/unit and/or counseling patient: Time with patient: 15 - 24 minutes Progress Note: Quality Stroke Does the patient have a stroke diagnosis?: No Procedures Date of Service Date of Service: 06/06/21
[2021-06-06 15:49] VITALS: BP 159/75; PULSE 76; RESP 18; TEMP 37; O2SAT 98
--- NOTE | 2021-06-06 16:48 | P.DS_ITS ---
DS: Providers Provider Date of Service: 06/07/21 Date of admission: 06/03/21 17:31 Primary care physician: Alberto Vyas MD Consults: 06/03/21 17:31 Consult to Vascular Surgery Routine Consulting Provider: Aleksander Pollock Reason for consultation: critical limb ischemia Has provider been notified: No 06/04/21 14:58 Consult to Infectious Diseases Routine Consulting Provider: Mary Cooper Reason for consultation: right foot cellulitis/gangrene Has provider been notified: No 06/05/21 09:00 Consult to Cardiology Routine Consulting Provider: Sreekanth Gloria Reason for consultation: pre-op open aortobifem Has provider been notified: No 06/05/21 09:01 Consult to Pulmonology Routine Consulting Provider: Dawood Barnett Reason for consultation: pre-op open aortobifem Has provider been notified: No DS: Diagnosis Discharge Diagnosis (1) Pre-operative cardiovascular examination, high risk surgery: Status: Acute DS: Summary Hospital Course Hospital Course: date of service and discharge:06/07/21 65-year-old man presenting with increased pain to his right foot and drainage with eschar noted.? He was seen by the vascular surgeon in his office today and was told to come to the ER for further evaluation for angiogram.? He has a history of critical limb ischemia to his left leg and he is status post AKA.? He has had nonhealing ulcers with cellulitis to the right foot.? He complains of increased pain.? He reports this started when he hit the foot on his walker and then noticed 2 days ago that he had drainage and his toes were black.? He denied fever, chills.? He had no elevated white blood cell count or fever.? In the ER he was given a dose of vancomycin and Zosyn.? He will be admitted for further management and treatment of acute limb ischemia and gangrene.? Hosptial course: patient came to the hospital because of critical limb ischemia, right foot cellulitis/ gangrene: Subsequently seen by vascular: patient had CT of aorta which showed aortic thrombosis .In short patient has aortic occlusive disease.? This has led to critical right limb ischemia leading to ulceration.? 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 vascular had an attempted endovascular intervention which was unsuccessful. He will require an open aortobifemoral bypass.? Risks benefits complications were discussed in detail with the patient and the patient's mother including bleeding infection limb loss further occlusion and .? Due to his overall status and comorbidities he is a known high risk. patient was seen by cardio for risk stratification: Had nuclear stress test ( please see imaging section for detailed report)which shows high risk cardiac anatomy. Patient is high risk for undergoing this major surgery and should most likely be referred to a tertiary care center with advanced cardiac back up care if required.? Most likely require coronary angiogram to evaluate for coronary anatomy prior to undergoing vascular surgery which is high risk. patient currently on IV antibiotics and currently on asa, statin,IV anticoagulation with heparin- monitor PT INR as per protocol. patient was seen by infectious disease and commended IV antibiotics broad-spectrum- consider ID And vascular follow-up in [facility] ( [facility]). patient also has history of normocytic anemia:in 11/2020 (november/2020)had workup- EGD showed ulcerative and erosive gastroduodenitis,? esophagitis, Nj's esophagus, nonreactive for H pylori. h/h stable: Continue omeprazole and sucralfate. H&H is stable around 10. Monitor CBC closely. Above management discussed with the patient in detail length he understand and in agreement with the above plan, time spent 50 minutes and 50% time spent on counseling. Significant findings: As above. Procedures performed: None. Treatment and response: As above. Complications: None. Time Spent with Patient Time attestation: Total time spent providing and/or coordinating discharge services: Discharge coordination time: Greater than 30 minutes Quality: Stroke Does the patient have a stroke diagnosis?: No Physical Exam Vital Signs: Vital Signs: Last Vital Signs Temp 98.6 F 06/06/21 15:49 Pulse 76 06/06/21 15:49 Resp 18 06/06/21 15:49 BP 159/75 H 06/06/21 15:49 Pulse Ox 98 06/06/21 15:49 BMI result Body Mass Index 14.7 Appearance: Alert.? Oriented X3.? not in distress.? cvs: rrr, [id number] , no murmur res: clear to auscultation ,no rhonchii or wheezing abd: no rebound or guarding ,nt, bs present. ext: left bka , right foot - bluish discoloration seems progressing more under the toes area of foot? -especially in first to 3 rd toes . neuro: axo3 , nonfocal. DS: Data Data Completed and Pending Completed studies during hospitalization [Text1]: Procedures Detachment at Left Upper Leg, Mid, Open Approach (12/11/20) Excision of Stomach, Pylorus, Via Natural or Artificial Opening Endoscopic, Diagnostic (12/11/20) Transfusion of Nonautologous Red Blood Cells into Peripheral Vein, Percutaneous Approach (12/11/20) Labs on day of discharge: Laboratory Results - last 24 hr 06/05/21 06/05/21 06/06/21 07:03 18:35 05:55 WBC RBC Hgb Hct MCV MCH MCHC RDW Plt Count MPV Absolute Nucleated RBC Nucleated RBC % (auto) PTT (Heparin Protocol) 56.7 Sodium Potassium Chloride Carbon Dioxide Anion Gap BUN Creatinine Cancelled Estim Creat Clear Calc Cancelled Estimated GFR Cancelled Random Glucose Calcium Total Bilirubin 0.3 Direct Bilirubin 0.2 AST 50 H D ALT 9 Alkaline Phosphatase 103 D Total Protein 5.6 L Albumin 3.2 L Triglycerides Cholesterol LDL Cholesterol, Calc HDL Cholesterol 06/06/21 06/06/21 06/06/21 05:55 05:55 05:55 WBC 10.2 RBC 3.47 L Hgb 10.4 L Hct 31.7 L MCV 91.4 MCH 30.0 MCHC 32.8 RDW 19.7 H Plt Count 263 MPV 9.2 L Absolute Nucleated RBC 0.000 Nucleated RBC % (auto) 0.0 PTT (Heparin Protocol) 57.6 Sodium 136 Potassium 3.7 Chloride 100 Carbon Dioxide 24 Anion Gap 16 BUN 7 L Creatinine 0.61 Estim Creat Clear Calc 77.4 Estimated GFR > 60 Random Glucose 80 Calcium 8.3 L Total Bilirubin Direct Bilirubin AST ALT Alkaline Phosphatase Total Protein Albumin Triglycerides 92 Cholesterol 121 LDL Cholesterol, Calc 65 HDL Cholesterol 38 Preliminary micro results at discharge 06/03/21 16:46 Blood Culture - Preliminary Blood - Venous No growth after 48 hours. 06/03/21 16:46 Blood Culture - Preliminary Blood - Venous No growth after 48 hours. Additional Comments Additional comments: nuclear stress test: Impression: ? 1.? Myocardial perfusion imaging study shows multivessel disease with ischemia in LAD disease possibly in RCA territory as well as infarct in the circumflex 2.? Gated LVEF is 43% 3. Transient ischemic dilatation not present but LV cavity is dilated ? EKG is nondiagnostic for ischemia cxr: IMPRESSION: No acute disease. ct angio: IMPRESSION: 1.? There has been interval increase in thrombus burden throughout the abdominal aorta with less than 25% patency of the abdominal aorta with near complete occlusion of the inferior most aspect of the abdominal aorta. 2.? There is complete occlusion of the right common iliac artery in addition to the right internal iliac artery. There is reconstitution of the right external iliac artery. The proximal portion of the right common femoral artery is patent although the distal aspect of the right common femoral artery is completely occluded. The right superficial femoral artery is patent although there is complete occlusion at the junction of the superficial femoral and popliteal arteries. The right popliteal artery is severely diseased but appears patent proximally. There is near complete occlusion of the distal right popliteal artery. There is a patent three-vessel takeoff of the proximal calf, however, all 3 arteries gradually loose contrast enhancement, however, this is possibly secondary to bolus timing/poor flow. 3.? There is similar chronic occlusion of the left common, internal and external iliac arteries. ? Foot Xray: ?IMPRESSION: Suspicious for early gas formation and distal foot soft tissues versus artifact from overlying dressing. No definite gas seen tracking in the mid or proximal foot or lower leg at this time. If clinically indicated, soft tissues could be further assessed with CT Discharge Plan Discharge Patient Disposition: Xfer SNF Discharge Diagnosis: critical limb ischemia, right foot cellulitis /gangrene, aortic thrombus Referrals: Alberto Vyas MD [Primary Care Provider] - 1 Week Discharge Medications: New atorvastatin 80 mg Tablet 80 mg PO BEDTIME Qty: 30 RF: 0 ipratropium-albuterol 0.5 mg-3 mg(2.5 mg base)/3 mL Solution For Nebulization 3 ml inhalation RQ6H WHILE AWAKE Qty: 3 RF: 0 sucralfate 1 gram Tablet 1 g PO BIDAC Qty: 1 RF: 0 piperacillin-tazobactam 3.375 gram Recon Soln 3.375 g IV Q6H Qty: 1 RF: 0 omeprazole 20 mg Capsule,Delayed Release(Dr/Ec) 20 mg PO BID@0630,1630 Qty: 1 RF: 0 oxycodone 5 mg Tablet 5 mg PO Q6H PRN (Reason: Pain, Severe (Pain Scale 7-10)) Qty: 1 RF: 0 vancomycin in 0.9 % sodium chl 750 mg/150 mL piggyback 750 mg IV Q12H Qty: 900 RF: 0 aspirin 81 mg Tablet,Delayed Release (Dr/Ec) 81 mg PO DAILY Qty: 1 RF: 0 heparin(porcine) in 0.45% NaCl 25,000 unit/250 mL Parenteral Solution 25,000 unit continuous IV infusion .Q0M Qty: 250 RF: 0 Continued finasteride 5 mg tablet 5 mg PO BEDTIME Qty: 90 RF: 1 oxycodone 5 mg tablet 5 mg PO DAILY Qty: 30 RF: 0 gabapentin 100 mg capsule 200 mg PO TID RF: 0 ferrous sulfate [FeroSul] 325 mg (65 mg iron) tablet 325 mg PO DAILY RF: 0 Discharge Orders: Discharge Order (Routine); Ordered 06/06/21 Ordered By: Bharti Singh Diet: advance to usual diet, low fat, low cholesterol and low salt diet Activity on Discharge: As tolerated Stand Alone Forms: Patient Portal Discharge page Care Plan Goals: patient came to the hospital because of critical limb ischemia, right foot cellulitis/ gangrene: Subsequently seen by vascular: patient had CT of aorta which showed aortic thrombosis .In short patient has aortic occlusive disease.? This has led to critical right limb ischemia leading to ulceration.? 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 He had an attempted endovascular intervention which was unsuccessful. He will require an open aortobifemoral bypass.? Risks benefits complications were discussed in detail with the patient and the patient's mother including bleeding infection limb loss further occlusion and .? Due to his overall status and comorbidities he is a known high risk. patient currently on IV antibiotics and currently on asa, statin,IV anticoagulation with heparin- monitor PT INR as per protocol. patient was seen by infectious disease and commended IV antibiotics broad-spectrum- consider ID And vascular follow-up in [facility]. patient also has history of normocytic anemia:in 12/09 had workup-EGD showed ulcerative and erosive gastroduodenitis,? esophagitis, Nj's esophagus, nonreactive for H pylori. h/h stable: Continue omeprazole and sucralfate. H&H is stable around 10. Monitor CBC closely.. patient accepted in [facility]. accepting physician is Dr. Gricelda Ryan. Health Concerns: As above. Plan of Treatment: as above. Assessment: As above. Discharge Date/Time: 06/07/21 21:53
[2021-06-06 18:49] LABS: Vancomycin Trough 8.4 mcg/mL (10.0-20.0)
[2021-06-06] MEDS: Aspirin Enteric Coated 81 MG TABLET.DR PO (18:55)
[2021-06-06 19:36] VITALS: BP 152/87; PULSE 77; RESP 18; TEMP 37.1; O2SAT 96
[2021-06-06] MEDS: vancomycin HCL 1,000 MG in 0.9 % Sodium Chloride 250 ML 270 MG IV (21:55)
[2021-06-06] MEDS: Finasteride 5 MG TABLET PO (21:56)
[2021-06-06] MEDS: Atorvastatin Calcium 80 MG TABLET PO (21:56)
[2021-06-07] VITALS (8 sets, daily range): BP systolic 115–160; BP diastolic 58–87; PULSE 73–95; RESP 18–20; TEMP 36.4–37.2; O2SAT 94–97
[2021-06-07] MEDS: Piperacillin Sodium/Tazobactam 3.375 GM in 0.9 % Sodium Chloride 50 ML IV ×4 (00:16→17:28)
[2021-06-07] MEDS: 0.9 % Sodium Chloride Flush 3 ML SYRINGE IVFLUSH ×3 (00:16→20:59)
[2021-06-07] MEDS: Heparin Sodium,Porcine/1/2NS 25,000 UNIT/250 ML IV.SOLN 6.35 UNIT IVCONT (03:38)
--- NOTE | 2021-06-07 04:53 | PC.NURSE ---
0440 stat bmp & mg level drawn for increased ectopy. pvc couplets , trigeminy noted. asymptomatic. also esha ptt-hd which was due for 0600
[2021-06-07 05:06] LABS: PTT Heparin Drip 63.9 SEC (53-77.9)
[2021-06-07 05:07] LABS: Anion Gap 13 (12-20); Blood Urea Nitrogen 5 mg/dL (9-16); Calcium 8.4 mg/dL (8.4-10.2); Carbon Dioxide 27 mmol/L (22-29); Chloride 99 mmol/L (96-108); Creatinine Clr Calc Pharmacy 82.8; Estimated Glomerular Filt Rate > 60; Glucose Random 104 mg/dL (60-115); Magnesium 1.9 mg/dL (1.6-2.6); Potassium 3.4 mmol/L (3.3-5.1); Sodium 136 mmol/L (135-145)
[2021-06-07] MEDS: Omeprazole 20 MG CAPSULE.DR PO ×2 (06:28→16:18)
[2021-06-07] MEDS: Sucralfate 1 GM TABLET PO ×2 (06:28→16:18)
[2021-06-07] MEDS: Morphine Sulfate 2 MG/ML CARTRIDGE IVPUSH ×4 (07:50→21:50)
[2021-06-07] MEDS: Gabapentin 100 MG CAPSULE 200 MG PO ×3 (07:50→20:57)
[2021-06-07] MEDS: oxyCODONE HCl Immed Release 5 MG TABLET PO ×2 (07:50→19:37)
[2021-06-07] MEDS: Aspirin Enteric Coated 81 MG TABLET.DR PO (07:50)
[2021-06-07] MEDS: Ferrous Sulfate 324 MG TABLET.DR PO (07:50)
[2021-06-07] MEDS: vancomycin HCL 1,000 MG in 0.9 % Sodium Chloride 250 ML 270 MG IV (07:51)
--- NOTE | 2021-06-07 07:57 | P.PNIM_ITS ---
Subjective Subjective Date of Service: 06/07/21 Interval History: cellulitis/gangrene, crtitical limb ischemia Review of Systems foot changes slightly progressing than yesterday still has pain still able to move the foot. Physical Exam Vital Signs: Vital Signs: Last Vital Signs Temp 98.1 F 06/07/21 07:30 Pulse 95 06/07/21 07:30 Resp 18 06/07/21 07:30 BP 127/65 06/07/21 07:30 Pulse Ox 94 06/07/21 07:30 BMI result Body Mass Index 14.7 Appearance: Alert.? Oriented X3.? not in distress.? cvs: rrr, [id number] , no murmur res: clear to auscultation ,no rhonchii or wheezing abd: no rebound or guarding ,nt, bs present. ext: left bka , right foot - bluish discoloration seems progressing more under the toes area of foot slightly more than yesterday? -especially in first to 3-4 toes . neuro: axo3 , nonfocal. Objective Data Active Medications Acetaminophen (Acetaminophen 325 Mg Tablet) 650 mg PO Q6H PRN PRN Reason: Pain, Mild (Pain Scale 1-3) Last Admin: 06/04/21 09:15 Dose: 650 mg Documented by: FAROOQ Albuterol/Ipratropium (Albuterol/Iprat 2.5/0.5mg 3 Ml Ampul.Neb) 3 ml INHALE RQ6H WHILE AWAKE [facility] Last Admin: 06/06/21 21:14 Dose: Not Given Documented by: YULIET Non-Admin Reason: Patient Asleep Aspirin (Aspirin Enteric Coated 81 Mg Tablet.) 81 mg PO DAILY [facility] Last Admin: 06/07/21 07:50 Dose: 81 mg Documented by: HERNESTO Atorvastatin Calcium (Atorvastatin Calcium 80 Mg Tablet) 80 mg PO BEDTIME [facility] Last Admin: 06/06/21 21:56 Dose: 80 mg Documented by: JOSEPH Ferrous Sulfate (Ferrous Sulfate 324 Mg Tablet.) 324 mg PO DAILY [facility] Last Admin: 06/07/21 07:50 Dose: 324 mg Documented by: HERNESTO Finasteride (Finasteride 5 Mg Tablet) 5 mg PO BEDTIME [facility] Last Admin: 06/06/21 21:56 Dose: 5 mg Documented by: JOSEPH Gabapentin (Gabapentin 100 Mg Capsule) 200 mg PO TID [facility] Last Admin: 06/07/21 07:50 Dose: 200 mg Documented by: HERNESTO Heparin Sodium (Porcine) (Heparin Sodium,Porcine 5,000 Unit/Ml Vial) 1,800 unit 40 unit/kg (1800 unit) IVPUSH PROTOCOL BOLUS PRN; Protocol PRN Reason: 40 unit/kg - Heparin Protocol Last Admin: 06/05/21 02:06 Dose: 1,800 unit Documented by: LENNIE Heparin Sodium (Porcine) (Heparin Sodium,Porcine 5,000 Unit/Ml Vial) 3,600 unit 80 unit/kg (3600 unit) IVPUSH PROTOCOL BOLUS PRN; Protocol PRN Reason: 80 unit/kg - Heparin Protocol Piperacillin Sod/Tazobactam (Sod 3.375 gm/ Sodium Chloride) 50 mls @ 100 mls/hr IV Q6H [facility] Last Infusion: 06/07/21 07:24 Dose: 0 mls/hr Documented by: JOSEPH Heparin Sodium/Sodium Chloride () 25,000 unit in 250 mls @ 0 mls/hr IVCONT .Q0M [facility]; Protocol Last Titration: 06/07/21 06:29 Dose: 14 units/kg/hr, 6.35 mls/hr Documented by: JOSEPH Cosigned by: STEVAN Vancomycin HCl 1,000 mg/ (Sodium Chloride) 270 mls @ 270 mls/hr IV Q12H [facility] Last Admin: 06/07/21 07:51 Dose: 270 mls/hr Documented by: HERNESTO Morphine Sulfate (Morphine Sulfate 2 Mg/Ml Cartridge) 2 mg IVPUSH Q4H PRN; Protocol PRN Reason: Pain, Severe (Pain Scale 7-10) Last Admin: 06/07/21 07:50 Dose: 2 mg Documented by: HERNESTO Morphine Sulfate (Morphine Sulfate 4 Mg/Ml Cartridge) 4 mg IVPUSH Q2H PRN; Protocol PRN Reason: Pain, Severe (Pain Scale 7-10) Last Admin: 06/06/21 22:00 Dose: 4 mg Documented by: JOSEPH Omeprazole (Omeprazole 20 Mg Capsule.Dr) 20 mg PO BID@0630,1630 [facility] Last Admin: 06/07/21 06:28 Dose: 20 mg Documented by: JOSEPH Ondansetron HCl (Ondansetron Hcl 4 Mg/2 Ml Vial) 4 mg IVPUSH Q8H PRN PRN Reason: Nausea and Vomiting Oxycodone HCl (Oxycodone Hcl Immed Release 5 Mg Tablet) 5 mg PO Q6H PRN PRN Reason: Pain, Severe (Pain Scale 7-10) Oxycodone HCl (Oxycodone Hcl Immed Release 5 Mg Tablet) 5 mg PO DAILY [facility] Last Admin: 06/07/21 07:50 Dose: 5 mg Documented by: HERNESTO Pharmacy Consult (Consult Rx Perform Med Rec) 1 each MISCELLANE ONCE PRN PRN Reason: Consult order Pharmacy Consult (Consult Rx Vancomycin Dosing) 1 each MISCELLANE DAILY PRN PRN Reason: Consult order Sodium Chloride (0.9 % Sodium Chloride Flush 3 Ml Syringe) 3 ml IVFLUSH QSHIFT [facility] Last Admin: 06/07/21 00:16 Dose: 3 ml Documented by: JOSEPH Sucralfate (Sucralfate 1 Gm Tablet) 1 gm PO BIDAC [facility] Last Admin: 06/07/21 06:28 Dose: 1 gm Documented by: JOSEPH Labs CBC & Chem 7: 06/06/21 05:55 06/07/21 04:43 Labs: Laboratory Results - last 24 hr 06/06/21 06/07/21 06/07/21 17:51 04:43 04:43 PTT (Heparin Protocol) 63.9 Anion Gap Estim Creat Clear Calc Cancelled Estimated GFR Cancelled Random Glucose Calcium Magnesium Vancomycin Trough 8.4 L 06/07/21 04:43 PTT (Heparin Protocol) Anion Gap 13 Estim Creat Clear Calc 82.8 Estimated GFR > 60 Random Glucose 104 Calcium 8.4 Magnesium 1.9 Vancomycin Trough Assessment and Plan Assessment and Plan: 60 old man admitted ischemia.? History left critical limb ischemia with AKA in December this year.? He was sent Dr. Yoo office to the ER for further workup.? 1.Critical limb ischemia and aortic thrombosis : Appears to be infected as well, will continue vancomycin ? Angio revealed severe peripheral vascular disease, CT scan ordered by vascular ? Recommended to start patient on heparin drip ,? Monitor PT INR,Pain management, moniter on tele will needs vasular surgery for aortic thrombosis -need cardio and pulm clearence for above. ? In the anticipation of surgery patient was seen by cardio and pulmonary: ? Cardio recommended:? Patient needs to get myocardial perfusion study? to decide further course of surgery.? ? Also recommended to add ? High dose statin. ?pulmonary: Recommended currently COPD tinoco stable,? added DuoNebs and thought to be average risk. 2.cellulitis/Gangrene: slightly progressing in comparion to yesterday Foot x-ray shows early gas formation with will likely need amputation possible? need vascular intervention since has significant pvd. 3.Normocytic anemia No signs of bleeding or melana as per patient in 12/09 had workup-EGD showed ulcerative and erosive gastroduodenitis,? esophagitis, Nj's esophagus, nonreactive for H pylori. h/h stable continue ppi and sucralfate. Follow hb/hct in am Above management discussed with vascular surgeon-called since yesterday -to [facility]-not accepted the patient , [facility] accepted but no bed available , placed call to [facility] for transfer also-spoke to vascular , hospitalist bed for step down bed. DVT prophylaxis with heparin Quality Stroke Does the patient have a stroke diagnosis?: No VTE Prior VTE?: No VTE Risk Level:: Medical - moderate - high VTE Device Contraindication: Treatment Not Indicated VTE Drug Contraindication: N/A - Med Ordered
[2021-06-07 17:16] LABS: Lactic Acid 0.9 mmol/L (0.5-2.0)
[2021-06-07 18:24] LABS: Vancomycin Trough 20.7 mcg/mL (10.0-20.0)
[2021-06-07] MEDS: Finasteride 5 MG TABLET PO (20:58)
[2021-06-07] MEDS: Atorvastatin Calcium 80 MG TABLET PO (20:58)
--- NOTE | 2021-06-17 07:12 | P.CDIR_ITS ---
Documented by User: Lsahonda Velazquez RN 06/17/21 07:15 Retrospective Query PHYSICIAN'S DOCUMENTATION REQUEST Date of Query: 06/17/21712 Patient Name: Andrew Lazaro Jr Admit Date: 06/03/21 Dear Doctor, A review of the medical record indicates additional documentation may be needed. Please review below and update the documentation accordingly. Clinical Indicators: Documentation includes the diagnosis of malnutrition. Additional clinical indicators from the record include: Risk Factors/Clinical Indicators/Treatments 06/06/21 13:24 - Dietitian Progress Note by Rosanna Graham RD PT IS SEVERELY MALNOURISHED PT WITH MODERATELY DEPLETED SUBCUTANEOUS FAT AND MUSCLE MASS, 15% SIGNIFICANT WT LOSS R/T AMPUTATION AND CHRONIC POOR PO INTAKE DIET RX: LOW FAT-WILL CHANGE TO REGULAR R/T MALNUTRITION PT PENDING AMPUTATION SCHEDULED FOR WEDNESDAY RECOMMEND ENSURE TID TO INCREASE KCALS AND PROMOTE WOUND HEALING SUPP TO PROVIDE 1050KCALS, 39G PROTEIN MONITOR PO INTAKE CLOSELY ASPEN Criteria* Acute Illness Chronic Illness Clinical Characteristic Non-Severe (2 or more criteria present) Severe (2 or more criteria present) Non-Severe (2 or more criteria present) Severe (2 or more criteria present) Energy Intake <75% for >7 days <=50% for >=5 days <75% for >=1 month <=75% for >=1 month Weight Loss 1 week 1 ? 2% >2% N/A N/A 1 month 5% >5% 5% >5% 3 months 7.5 % >7.5% 7.5% >7.5% 6 months N/A N/A 10% >10% 1 year N/A N/A 20% >20% Body Fat Mild Moderate Mild Severe Muscle Mass Mild Moderate Mild Severe Fluid Accumulation Mild Moderate to Severe Mild Severe Reduced Substation Operator Transforming Strength N/A Measurably Reduced N/A Measurably Reduced *ACP Hospitalist, 2017 To ensure the quality of the medical record, based on the above information and the recognized standard for [specify severity] malnutrition, could you please verify in your progress notes which of the following diagnoses best reflects the patient's nutritional status. * [Specify severity] malnutrition is/was present and is a clinical diagnosis (please include additional support in the medical record) * No nutritional deficiency * Other (please specify) * Unable to determine Use of terms such as suspected, likely, concern for, or probable (associated with a specific diagnosis that is being evaluated, monitored, or treated as if it exists) are acceptable and can be coded in the inpatient setting, when documented at the time of discharge. Thank you, Lashonda Velazquez RN Extension: [phone] Please use your independent medical judgment in providing your response. THIS QUERY IS PART OF THE PERMANENT MEDICAL RECORD Documented by User: Bharti Singh MD 06/17/21 16:36 Retrospective Query Provider Response: Other (severe malnutrition)
== END 2021-06-07 21:53 | disposition short-term general hospital (02) | DRG 299 ==
LOC: HO.ED 16:45 → HO.EDOVER 17:39 → HO.IMC 06-05 17:04
PROVIDERS: Internal Medicine; Student in an Organized Health Care Education/Training Program; Surgery Vascular Surgery; Admitting Provider Nurse Practitioner Acute Care; Emergency Provider Emergency Medicine; PCP Internal Medicine; Visit Provider Internal Medicine
DX: I70.261 Atherosclerosis of native arteries of extremities with gangrene, right leg (principal); E43 Unspecified severe protein-calorie malnutrition; L03.115 Cellulitis of right lower limb; I74.10 Embolism and thrombosis of unspecified parts of aorta; Z68.1 Body mass index [BMI] 19.9 or less, adult; L97.519 Non-pressure chronic ulcer of other part of right foot with unspecified severity; Z20.822 Contact with and (suspected) exposure to COVID-19; D64.9 Anemia, unspecified; F17.210 Nicotine dependence, cigarettes, uncomplicated; Z71.6 Tobacco abuse counseling; Z89.612 Acquired absence of left leg above knee; Z79.82 Long term (current) use of aspirin; Z79.899 Other long term (current) drug therapy
CPT/HCPCS: 36415; 71046; 73620; 75625; 75635; 76937; 78452; 80048; 80061; 80076; 80202; 82803; 83605; 83735; 85025; 85027; 85610; 85652; 85730; 86140; 87040; 87635; 93017; 94640; 96365; 96366; 96367; 99152; 99153; 99212; 99285; A9500; C1769; C1887; J0280; J2270; J2543; J2785; J3370; Q9967

== ENCOUNTER → 2022-03-24 15:02 | Outpatient (BNVA) | payer MEDICARE, SELFPAY | PROVIDERS: PCP Internal Medicine; Visit Provider Surgery Vascular Surgery | DX: I73.9 Peripheral vascular disease, unspecified (principal) | CPT/HCPCS: 99212 ==

== ENCOUNTER 2022-07-14 13:23 | Outpatient (REF) | payer MEDICARE, MEDICAID, SELFPAY ==
--- NOTE | ~2022-07-14 | US_ITS ---
EXAMINATION: Noninvasive assessment of the bilateral lower extremities with ARTERIAL DUPLEX and ANKLE BRACHIAL INDICES (ABIs). CLINICAL INFORMATION: Severe peripheral vascular disease. History of left lower extremity above knee amputation TECHNIQUE: Duplex Doppler techniques with waveform analysis and measurement of velocities in the bilateral common femoral, profunda femoris, superficial femoral, popliteal and tibial arteries were performed. Additionally, ankle pulse volume recordings, ankle pressure measurements and ankle brachial indices were obtained of the lower extremity arterial system bilaterally. The study was performed only at rest. COMPARISON: CTA from 06/04/2021 and ultrasound from 10/22/2021 FINDINGS: DIRECT DUPLEX DOPPLER FINDINGS: RIGHT LEG: Common femoral artery: 123 cm/s, phasicity: Monophasic. Postsurgical changes are seen with a patent axillary femoral bypass graft visualized in the right groin. Profunda femoris artery: 195 cm/s, phasicity: Monophasic Superficial femoral artery (proximal): 106 cm/s, phasicity: Monophasic Superficial femoral artery (mid): 98.5 cm/s, phasicity: Monophasic. Superficial femoral artery stent: Proximal: 113 cm/s, phasicity: Biphasic Mid: 46 cm/s, phasicity: Biphasic Distal: 25 cm/s, phasicity: Monophasic Superficial femoral artery (distal): 40.5 cm/s, phasicity: Biphasic Popliteal artery: 54.6 cm/s, phasicity: Biphasic Posterior tibial artery: 39.3 cm/s, phasicity: Biphasic Peroneal artery: 35.5 cm/s, phasicity: Biphasic LEFT LEG: Common femoral artery: 17.3 cm/s, phasicity: Monophasic Profunda femoris artery: 34.0 cm/s, phasicity: Monophasic Superficial femoral artery (proximal): Occluded Superficial femoral artery (mid): Occluded Superficial femoral artery (distal): Occluded ANKLE-BRACHIAL INDEX: Right: 1.0? ANKLE PRESSURES: Right: PT 102, DP not audible ANKLE PVR WAVEFORMS: Right: Abnormal US/US arterial duplex LE BI IMPRESSION: Right leg: Patent flow within the partially visualized right axillary femoral bypass graft. Patent arterial flow within the right superficial femoral artery stent. Right dorsalis pedis artery pulses not applicable. Patent flow seen in the right posterior tibial and peroneal arteries Left leg: Status post left above-knee amputation
[2022-07-14 15:02] LABS: Hematocrit 33.2 % (42.0-52.0); Hemoglobin 9.9 g/dl (14.0-18.0); Mean Corpuscular HGB Conc 29.8 g/dl (31.0-36.0); Mean Corpuscular Hemoglobin 23.6 pg (27.0-33.0); Mean Platelet Volume 9.4 fL (9.4-12.4); Platelet Count 200 X10*3/uL (160-400); Red Cell Distribution Width 19.9 % (11.0-16.0); White Blood Count 5.7 X10*3/uL (4.8-10.8)
[2022-07-14 16:21] LABS: Alanine Aminotransferase < 6 U/L (0-40); Albumin Level 4.1 g/dL (3.5-5.0); Alkaline Phosphatase 81 U/L (39-117); Anion Gap 14 (12-20); Aspartate Amino Transferase 12 U/L (5-37); Bilirubin Direct 0.2 mg/dL (0.0-0.5); Bilirubin Total 0.4 mg/dL (0.0-1.0); Blood Urea Nitrogen 14 mg/dL (9-16); Calcium 8.9 mg/dL (8.4-10.2); Carbon Dioxide 24 mmol/L (22-29); Chloride 104 mmol/L (96-108); Cholesterol 142 mg/dL; Estimated Glomerular Filt Rate > 60; Glucose Random 90 mg/dL (60-115); HDL Cholesterol 48 mg/dL; LDL Cholesterol Calculated 76 mg/dl; Potassium 4.4 mmol/L (3.3-5.1); Sodium 138 mmol/L (135-145); Total Protein 6.5 g/dL (6.5-8.0); Triglycerides 91 mg/dL
== END 2022-07-14 13:24 | disposition home or self-care (01) ==
LOC: HO.US 13:23
PROVIDERS: Absent Provider Internal Medicine; PCP Internal Medicine; Visit Provider Surgery Vascular Surgery
DX: I70.213 Atherosclerosis of native arteries of extremities with intermittent claudication, bilateral legs (principal); G89.4 Chronic pain syndrome; Z89.612 Acquired absence of left leg above knee
CPT/HCPCS: 36415; 80048; 80061; 80076; 84443; 85027; 93923; 93925